=== PATIENT | female | born 1970 | race Hispanic/Latino ===

== ENCOUNTER 2019-07-19 23:53 | Emergency (ER) | payer OTHER ==
--- OUTSIDE RECORDS SUMMARY | 2019-07-20 00:09 | XMS REPORT ---
:1970 Author Organization [facility] Address [address] [place] [address] Dr. Meza [address] [place] [address] Care Team Providers Name Role Phone Unavailable Unavailable Unavailable Problems This patient has no known problems. Allergies, Adverse Reactions, Alerts This patient has no known allergies or adverse reactions. Medications This patient has no known medications.
--- OUTSIDE RECORDS SUMMARY | 2019-07-20 00:10 | XMS REPORT | Summary of Care ---
:1970 Author Organization [facility] Address [address] [place] [address] Care Team Providers Name Role Phone Mason Trivedi Primary Care Provider Pcp, Patient Does Not Have A Unavailable Reason for Visit Reason Comments Orders Pre-Op Orders Encounter Details Date Type Department Care Team Description 06/20/2019 Telephone [facility] Orthopaedic Andrea Rivera Orders (Pre- Op Orders) Surgery- Didier Bolaños MD [address] [facility], [address] [place] [address] [place], [place] [phone] Allergies No Known Allergiesdocumented as of this encounter (statuses as of 06/20/2019) Medications Medication Sig Dispensed Refills Start Date End Date Status amoxicillin-clavulanate 875-125 mg 0 04/11/2019 Active per tablet atorvastatin 10 mg tablet 0 03/31/2019 Active TRULICITY 1.5 mg/0.5 mL PnIj 0 03/31/2019 Active DULoxetine 60 mg capsule 0 03/31/2019 Active HYDROcodone-acetaminophen 7.5-325 mg 0 02/14/2019 Active per tablet ibuprofen 800 mg tablet 0 05/01/2019 Active NOVOLOG FLEXPEN U-100 INSULIN 100 0 04/27/2019 Active unit/mL (3 mL) injection LEVEMIR FLEXTOUCH U-100 INSULN 100 0 03/31/2019 Active unit/mL (3 mL) injection LINZESS 145 mcg capsule 0 03/31/2019 Active losartan 50 mg tablet 0 03/31/2019 Active pregabalin 75 mg capsule 0 03/31/2019 Active promethazine-dextromethorphan 0 04/11/2019 Active 6.25-15 mg/5 mL syrup rOPINIRole 1 mg tablet 0 03/31/2019 Active orphenadrine 100 mg SR tablet 0 03/15/2019 Active documented as of this encounter (statuses as of 06/20/2019) Active Problems Not on filedocumented as of this encounter (statuses as of 06/20/2019) Social History Tobacco Use Types Packs/Day Years Used Date Current Every Day Smoker Smokeless Tobacco: Never Used Sex Assigned at Date Recorded Not on file Job Start Date Occupation Industry Not on file Not on file Not on file Travel History Travel Start Travel End No recent travel history available. documented as of this encounter Last Filed Vital Signs Not on filedocumented in this encounter Plan of Treatment Name Type Priority Associated Diagnoses Order Schedule CBC WITH DIFF LAB Routine Bilateral carpal Expected: 06/20/2019, tunnel syndrome Expires: 06/20/2020 BASIC METABOLIC LAB Routine Bilateral carpal Expected: 06/20/2019, PANEL ([id number])(NA, K, tunnel syndrome Expires: 06/20/2020 CL, CO2, GLUCOSE, BUN, CREATININE, CA) EKG-12 LEAD ROUTINE HEART STATION Routine Bilateral carpal 1 Occurrences tunnel syndrome starting 06/20/2019 until 08/19/2019 XR CHEST 1 VW IMAGING Routine Bilateral carpal Expected: 06/27/2019, tunnel syndrome Expires: 06/20/2020 Health Maintenance Due Date Last Done Comments HgA1C 01/05/1969 PNEUMOCOCCAL 0-64 YEARS COMBINED SERIES (1 of 1 - 01/05/1974 PPSV23) EYE EXAM 01/05/1978 LDL-C 01/05/1978 URINE MICROALBUMIN 01/05/1978 DTaP,Tdap,and Td Vaccines (1 - Tdap) 01/05/1979 FOOT EXAM 01/05/1986 Breast Cancer Screening (MAMMOGRAM) 2008 PAP SMEAR 2008 01/05/2005 CREATININE (SERUM) 04/23/2008 04/23/2007 COLONOSCOPY 01/05/2018 Zoster Recombinant Vaccine (SHINGRIX) (1 of 2) 01/05/2018 INFLUENZA VACCINE (#1) 2019 documented as of this encounter Results Not on filedocumented in this encounter Visit Diagnoses Diagnosis Bilateral carpal tunnel syndrome - Primary Carpal tunnel syndrome documented in this encounter Insurance Payer Benefit Plan / Group Subscriber ID Effective Dates Phone Address Type DARIN WEBSTER II [id number] 2018-Present HMO/PPO/POS documented as of this encounter
--- OUTSIDE RECORDS SUMMARY | 2019-07-20 00:10 | XMS REPORT | Summary of Care ---
:1970 Author Organization [facility] Address [address] [place] [address] Care Team Providers Name Role Phone Mason Trivedi Primary Care Provider Reason for Referral MRI/CAT Scan (Routine) Status Reason Specialty Diagnoses / Referred By Referred To Procedures Contact Contact Closed Diagnostic Diagnoses Closed head injury, initial encounter Memory loss Dmitry Sy Radiology Procedures MR BRAIN WO MARÍA Stiles MD [address] [place] [id number] Reason for Visit MRI/CAT Scan (Routine) Status Reason Specialty Diagnoses / Referred By Referred To Procedures Contact Contact Closed Diagnostic Diagnoses Closed head injury, initial encounter Memory loss Dmitry Sy Radiology Procedures MR BRAIN WO MARÍA Stiles MD [address] [place] [phone] Encounter Details Date Type Department Care Team Description [facility] Keri EUCEDA [facility] [address] [place] [phone] Allergies No Known Allergiesdocumented as of this encounter (statuses as of 05/31/2019) Medications Medication Sig Dispensed Refills Start Date [...] as of this encounter (statuses as of 05/31/2019) Active Problems Not on filedocumented as of this encounter (statuses as of 05/31/2019) Social History Tobacco Use Types Packs/Day Years Used Date Current Every Day Smoker Smokeless Tobacco: Never Used Sex Assigned at Date Recorded Not on file Job Start Date Occupation Industry Not on file Not on file Not on file Travel History Travel Start Travel End No recent travel history available. documented as of this encounter Last Filed Vital Signs Vital Sign Reading Time Taken Comments Blood Pressure - - Pulse - - Temperature - - Respiratory Rate - - Oxygen Saturation - - Inhaled Oxygen Concentration - - Weight 68.9 kg (152 lb) 05/30/2019 10:03 AM STRAIGHT EDGER Height 154.9 cm (5' 1") 05/30/2019 10:03 AM STRAIGHT EDGER Body Mass Index 28.72 05/30/2019 10:03 AM STRAIGHT EDGER documented in this encounter Plan of Treatment Date Type Specialty Care Team Description 06/15/2019 Appointment Electroneurodiagnostic ([employer] Worker), Adc Emg/Ncv Testing Health Maintenance Due Date Last Done Comments HgA1C 01/05/1969 PNEUMOCOCCAL 0-64 YEARS COMBINED SERIES (1 of 1 - 01/05/1974 PPSV23) CREATININE (SERUM) 01/05/1978 EYE EXAM 01/05/1978 LDL-C 01/05/1978 URINE MICROALBUMIN 01/05/1978 DTaP,Tdap,and Td Vaccines (1 - Tdap) 01/05/1979 FOOT EXAM 01/05/1986 PAP SMEAR 01/05/1989 Breast Cancer Screening (MAMMOGRAM) 2008 COLONOSCOPY 01/05/2018 Zoster Recombinant Vaccine (SHINGRIX) (1 of 2) 01/05/2018 INFLUENZA VACCINE (#1) 2019 documented as of this encounter Procedures Procedure Name Priority Date/Time Associated Comments Diagnosis MR BRAIN WO CONTRAST Routine 05/30/2019 10:37 AM Closed head injury, Results for this STRAIGHT EDGER initial encounter procedure are in Memory loss the results section. CONSENT/REFUSAL FOR Routine 05/30/2019 9:23 AM DIAGNOSIS AND STRAIGHT EDGER TREATMENT ASSIGNMENT OF Routine 05/30/2019 9:23 AM BENEFITS STRAIGHT EDGER documented in this encounter Results MR BRAIN WO CONTRAST (05/30/2019 10:37 AM STRAIGHT EDGER) Specimen Impressions Performed At PACS/VR/DOSE Normal MRI of the brain.. Preliminary Report Dictated by Resident: Yobany Charles I, Sami Mai MD., have reviewed this study and agree with the above report. Narrative Performed At MR BRAIN WO CONTRAST PACS/VR/DOSE COMPARISON: None HISTORY: 49 year old female?with a PMH of IDDM, HTN, diabetic neuropathy, restless leg syndrome and anxiety mean evaluate for memory loss and unexplained shaking. TECHNIQUE: Multiplanar multisequence MR imaging of the brain at 1.5 Toyin. FINDINGS: The ventricles and cerebral sulci are normal in caliber and configuration. No midline shift, hydrocephalus or pathological extra-axial fluid collection is present. The basal cisterns are unremarkable. No restricted diffusion is present to suggest acute infarct. No parenchymal signal abnormality is present. No abnormal gradient blooming. The T2 flow voids for the major intracranial vessels are unremarkable. No abnormal fluid signal is present in the mastoid air cells or paranasal air sinuses. Procedure Note [facility], Radiant Results Inft User - 05/30/2019 12:39 PM STRAIGHT EDGER MR BRAIN WO CONTRAST COMPARISON: None HISTORY: 49 year old female?with a PMH of IDDM, HTN, diabetic neuropathy, restless leg syndrome and anxiety mean evaluate for memory loss and unexplained shaking. TECHNIQUE: Multiplanar multisequence MR imaging of the brain at 1.5 Toyin. FINDINGS: The ventricles and cerebral sulci are normal in caliber and configuration. No midline shift, hydrocephalus or pathological extra-axial fluid collection is present. The basal cisterns are unremarkable. No restricted diffusion is present to suggest acute infarct. No parenchymal signal abnormality is present. No abnormal gradient blooming. The T2 flow voids for the major intracranial vessels are unremarkable. No abnormal fluid signal is present in the mastoid air cells or paranasal air sinuses. IMPRESSION Normal MRI of the brain.. Preliminary Report Dictated by Resident: Yobany Charles I, Sami Mai MD., have reviewed this study and agree with the above report. Performing Organization Address City/State/Zipcode Phone Number PACS/VR/DOSE documented in this encounter Visit Diagnoses Diagnosis Closed head injury, initial encounter Memory loss documented in this encounter documented as of this encounter
--- OUTSIDE RECORDS SUMMARY | 2019-07-20 00:11 | XMS REPORT | Summary of Care ---
:1970 Author Organization [facility] - [address] [address] Care Team Providers Name Role Phone Mason Trivdei Primary Care Provider Pcp, Patient Does Not Have A Unavailable Reason for Visit Reason Comments New Patient Bilateral wrist pain (Routine) Status Reason Specialty Diagnoses / Referred By Referred To Procedures Contact Contact Closed Orthopedic Surgery Diagnoses Carpal tunnel syndrome, bilateral Dmitry Sy Procedures CONSULT/REFERRAL ORTHOPAEDIC SURGERY MD Go [address] [place] [address]. [place] [address] Encounter Details Date Type Department Care Team Description 06/19/2019 Office Visit [facility] Orthopaedic Waqas Rojas S, Bilateral carpal Surgery- [place] PAC tunnel syndrome [address], [address] (Primary Dx) [place] [address] [place] [address] [place], [place] [phone] Allergies No Known Allergiesdocumented as of this encounter (statuses as of 06/22/2019) Medications Medication Sig Dispensed Refills Start Date [...] as of this encounter (statuses as of 06/22/2019) Active Problems Not on filedocumented as of this encounter (statuses as of 06/22/2019) Social History Tobacco Use Types Packs/Day Years [...] Sign Reading Time Taken Comments Blood Pressure 146/94 06/19/2019 1:35 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 Has tried OTC ointments and bracing that hasnot helped. EMG results available in the chart. Linda Romero 06/19/2019 1:39 PM Cesia Farris is a 49 year old female. [facility] patient visit for bilateral wrist pain is been going on for 7 months she's tried [id number] ointments and bracing that have not helped she was seen by Dr. Sy who did a nerve conduction study results available for review today she feels weird in the median distribution but not numbat rest. She has some weakness in her hands requiring her to use 2 hands to poor her coffee. Allergies Cesia has No Known Allergies. Medications Outpatient Medications Prior to Visit Medication Sig Dispense Refill amoxicillin-clavulanate 875-125 mg per tablet atorvastatin 10 mg tablet DULoxetine 60 mg capsule HYDROcodone-acetaminophen 7.5-325 mg per tablet ibuprofen 800 mg tablet LEVEMIR FLEXTOUCH U-100 INSULN 100 unit/mL (3 mL) injection LINZESS 145 mcg capsule losartan 50 mg tablet NOVOLOG FLEXPEN U-100 INSULIN 100 unit/mL (3 mL) injection orphenadrine 100 mg SR tablet pregabalin 75 mg capsule promethazine-dextromethorphan 6.25-15 mg/5 mL syrup rOPINIRole 1 mg tablet TRULICITY 1.5 mg/0.5 mL PnIj No facility-administered medications prior to visit. Histories History reviewed. No pertinent past medical history. History reviewed. No pertinent surgical history. Social History Socioeconomic History Marital status: Spouse name: Not on file Number of children: Not on file Years of education: Not on file Highest education level: Not on file Occupational History Not on file Social Needs Financial resource strain: Not on file Food insecurity: Worry: Not on file Inability: Not on file Transportation needs: Medical: Not on file Non-medical: Not on file Tobacco Use Smoking status: Current Every Day Smoker Smokeless tobacco: Never Used Substance and Sexual Activity Alcohol use: Not on file Drug use: Not on file Sexual activity: Not on file Lifestyle Physical activity: Days per week: Not on file Minutes per session: Not on file Stress: Not on file Relationships Social connections: Talks on phone: Not on file Gets together: Not on file Attends samaritan service: Not on file Active member of club or organization: Not on file Attends meetings of clubs or organizations: Not on file Relationship status: Not on file Intimate partner violence: Fear of current or ex partner: Not on file Emotionally abused: Not on file Physically abused: Not on file Forced sexual activity: Not on file Other Topics Concern Not on file Social History Narrative Not on file History reviewed. No pertinent family history. Review of Systems Constitutional: Positive for activity change. HENT: Negative. Eyes: Negative. Respiratory: Negative. Cardiovascular: Negative. Gastrointestinal: Negative. Genitourinary: Negative. Musculoskeletal: Positive for joint swelling. Skin: Negative. Neurological: Negative. Psychiatric/Behavioral: Negative. Endocrine: Endocrine negative Vital Signs BP (!) 146/94 | Pulse 116 | Ht 61" (154.9 cm) | Wt 68.9 kg (152 lb) | BMI 28.72 kg/m Physical Exam Musculoskeletal: Physical Exam Constitutional: oriented to person, place, and time. appears well-developed and well-nourished. HENT: Head: Normocephalic and atraumatic. Right Ear: External ear normal. Left Ear: External ear normal. Eyes: Conjunctivae are normal. Neck: Normal range of motion. No strabismus Neck supple. Cardiovascular: Normal rate and regular rhythm. Pulmonary/Chest: Normal respiratory rate equal chest rise and fall in no apparent distress Abdominal: Abdomen nondistended nontender Neurological: alert and oriented to person, place, and time. No asymmetry Skin: Skin is warm and dry. Psychiatric: normal mood and affect. behavior is normal. Judgment and thought content normal. Nursing note and vitals reviewed. She has a positive Tinel's test on both sides and the pain with Phalen's test Assessment/Plan 1. Bilateral carpal tunnel syndrome She has tried conservative management and continues to have carpal tunnel syndrome in both hands theright side is worse on the left side so we will proceed with that first we will schedule her for a right wrist carpal tunnel release. At [facility] for 06/21/2019. I have discussed the patient's physical exam and reviewed their x-rays/imaging/ results with them in detail. Discussed surgery at great lengths regarding risks and benefits. Explained as with any procedure there may be pain, damage to nerve and vascular structures, fat embolism, need for additional surgery, failure of procedure to relieve pain. We spoke of recovery time, expected outcome, possible restrictions and anticipation return to work date as well as possible rehabilitation if needed or required after the surgery. All questions have been answered. Condition and plans were discussed with patient, who expressed understanding and is agreeable to theplan. documented in this encounter Plan of Treatment Health Maintenance Due Date Last Done Comments [...] Carpal tunnel syndrome documented in this encounter documented as of this encounter
--- OUTSIDE RECORDS SUMMARY | 2019-07-20 00:11 | XMS REPORT | Summary of Care ---
:1970 Author Organization [facility] - [address] [address] Care Team Providers Name Role Phone Mason Trivedi Primary Care Provider Pcp, Patient Does Not Have A Unavailable Reason for Visit Reason Comments New Patient Bilateral wrist pain (Routine) Status Reason Specialty Diagnoses / Referred By Referred To Procedures Contact Contact Closed Orthopedic Surgery Diagnoses Carpal tunnel syndrome, bilateral Dmitry Sy Procedures CONSULT/REFERRAL ORTHOPAEDIC SURGERY MD Go [address] [place] [address]. [place] [address] Encounter Details Date Type Department Care Team Description 06/19/2019 Office Visit [facility] Orthopaedic Waqas Rojas S, Bilateral carpal Surgery- [place] PAC tunnel syndrome [address], [address] (Primary [address]x) [address] [place] [address] [place] [address] [place], [place] [phone] Allergies No Known Allergiesdocumented as of [...] Comments Blood Pressure 146/94 06/19/2019 1:35 PM FIELD TECHNICAL SUPPORT CONSULTANT Pulse 116 06/19/2019 1:35 PM FIELD TECHNICAL SUPPORT CONSULTANT Temperature - - Respiratory Rate - - Oxygen Saturation - - Inhaled Oxygen Concentration - - Weight 68.9 kg (152 lb) 06/19/2019 1:35 PM FIELD TECHNICAL SUPPORT CONSULTANT Height 154.9 cm (5' 1") 06/19/2019 1:35 PM FIELD TECHNICAL SUPPORT CONSULTANT Body Mass Index 28.72 06/19/2019 1:35 PM FIELD TECHNICAL SUPPORT CONSULTANT documented in this encounter Progress Notes Waqas [...] Farris is a 49 year old female. [facility] patient visit for bilateral wrist pain is been going on for 7 months she's tried [id number] ointments and bracing that have not helped [...] file Gets together: Not on file Attends buddhism service: Not on file Active member of [...] a right wrist carpal tunnel release. At [facility] for 06/21/2019. I have discussed the patient's [...]
--- OUTSIDE RECORDS SUMMARY | 2019-07-20 00:12 | XMS REPORT | Summary of Care ---
:1970 Author Organization [facility] Address [address] [place] [address] Care Team Providers Name Role Phone Mason Trivedi Primary Care Provider Pcp, Patient Does Not Have A Unavailable Reason for Visit Reason Comments Notification The patient called stating she thought she was having surgery tomorrow on her left hand first but her paperwork says the right. She is right handed and would prefer to do the left hand first. Encounter Details Date Type Department Care Team Description 06/27/2019 Telephone [facility] Orthopaedic Andrea Rivera Notification ( The Surgery- Didier Bolaños MD patient called stating [address], [address] [place] [address] [place], [place] on her left hand first [phone] but her paperwork says [phone] the right. She is right [phone] handed and would prefer (Fax) to do the left hand first. ) Allergies No Known Allergiesdocumented as of this encounter (statuses as of 06/27/2019) Medications Medication Sig Dispensed Refills Start Date [...] as of this encounter (statuses as of 06/27/2019) Active Problems Not on filedocumented as of this encounter (statuses as of 06/27/2019) Social History Tobacco Use Types Packs/Day Years [...] filedocumented in this encounter Plan of Treatment Health Maintenance Due Date Last Done Comments HgA1C 01/05/1969 PNEUMOCOCCAL 0-64 YEARS COMBINED SERIES (1 01/05/1974 of 1 - PPSV23) EYE EXAM 01/05/1978 LDL-C 01/05/1978 URINE MICROALBUMIN 01/05/1978 DTaP,Tdap,and Td Vaccines (1 - Tdap) 01/05/1979 FOOT EXAM 01/05/1986 Breast Cancer Screening (MAMMOGRAM) 2008 PAP SMEAR 2008 01/05/2005 COLONOSCOPY 01/05/2018 Zoster Recombinant Vaccine (SHINGRIX) (1 01/05/2018 of 2) INFLUENZA VACCINE (#1) 2019 CREATININE (SERUM) 06/22/2020 06/22/2019, 04/23/2007 documented as of this encounter Results Not on filedocumented in this encounter Insurance Payer Benefit Plan / Group Subscriber ID Effective Dates Phone Address Type DARIN WEBSTER II [id number] 2018-Present HMO/PPO/POS documented as of this encounter
--- OUTSIDE RECORDS SUMMARY | 2019-07-20 00:12 | XMS REPORT | Summary of Care ---
:1970 Author Organization [facility] Address [address] [place] [address] Care Team Providers Name Role Phone Mason Trivedi Primary Care Provider Pcp, Patient Does Not Have A Unavailable Reason for Visit Reason Comments LAB WORK Encounter Details Date Type Department Care Team Description 06/22/2019 Block Tester Visit [facility] Andrea Rivera MD [address] [facility] [place] [address] [place] [address] Bilateral carpal Professional Office Pob, Adc Lab Main tunnel syndrome Building Phlebotomy Lab Professional Office Building [address] [place] [address] , [address] [place] [address] Allergies No Known Allergiesdocumented as of this [...] filedocumented in this encounter Plan of Treatment Date Type Specialty Care Team Description 06/22/2019 Hospital Encounter [facility] Andrea Rivera MD [address] [place] [phone] Arrived Station, [facility] Heart Name Type Priority Associated Diagnoses Date/Time CBC WITH DIFF LAB Routine Bilateral carpal tunnel 06/22/2019 2:38 PM syndrome SEPTIC TANK SERVICE TECHNICIAN BASIC METABOLIC PANEL LAB Routine Bilateral carpal tunnel 06/22/2019 2:38 PM ([id number])(NA, K, CL, CO2, syndrome SEPTIC TANK SERVICE TECHNICIAN GLUCOSE, BUN, CREATININE, CA) CBC WITH DIFFERENTIAL LAB Routine Bilateral carpal tunnel 06/22/2019 2:38 PM syndrome SEPTIC TANK SERVICE TECHNICIAN Health Maintenance Due Date Last Done Comments [...] Visit Diagnoses Diagnosis Bilateral carpal tunnel syndrome Carpal tunnel syndrome documented in this encounter documented as of this encounter
--- OUTSIDE RECORDS SUMMARY | 2019-07-20 00:12 | XMS REPORT | Summary of Care ---
:1970 Author Organization [facility] Address [address] [place] [address] Care Team Providers Name Role Phone Mason Trivedi Primary Care Provider Pcp, Patient Does Not Have A Unavailable Reason for Visit Auth/Cert Status Reason Specialty Diagnoses / Procedures Referred By Contact Referred To Contact Radiology Diagnoses PRE OP Adc X-Ray Procedures CBC [address] [place] [address] Encounter Details Date Type Department Care Team Description 06/22/2019 Hospital Encounter [facility] Andrea Rivera, Keri Mancilla Radiology [address] [facility] [place] [address] [address] [phone] [place] [address] Allergies No Known Allergiesdocumented as of this encounter (statuses as of 06/23/2019) Medications Medication Sig Dispensed Refills Start Date [...] as of this encounter (statuses as of 06/23/2019) Active Problems Not on filedocumented as of this encounter (statuses as of 06/23/2019) Social History Tobacco Use Types Packs/Day Years [...] encounter Procedures Procedure Name Priority Date/Time Associated Diagnosis Comments XR CHEST 2 VW Routine 06/22/2019 2:21 PM Bilateral carpal Results for this GEODESIST tunnel syndrome procedure are in the results section. documented in this encounter Results XR CHEST 2 VW (06/22/2019 2:21 PM GEODESIST) Specimen Narrative Performed At HISTORY: Preop. PACS/VR/DOSE TECHNIQUE: PA and lateral views of the chest are obtained. FINDINGS: No acute pneumonia detected. No pneumothorax or pleural effusion or pulmonary congestion. Cardiothoracic ratio of approximately 12/28.8 cm is consistent with normal cardiac size. Very small calcified granuloma in the right upper lobe and left lingula segment suspected. No compression deformity in the thoracic vertebral bodies or any aggressive bone lesions visualized. Clips are seen in the right upper abdomen, likely utilized for cholecystectomy. CONCLUSIONS: No signs of acute cardiopulmonary disease. Procedure Note [facility], Radiant Results Inft User - 06/22/2019 2:25 PM GEODESIST HISTORY: Preop. TECHNIQUE: PA and lateral views of the chest are obtained. FINDINGS: No acute pneumonia detected. No pneumothorax or pleural effusion or pulmonary congestion. Cardiothoracic ratio of approximately 12/28.8 cm is consistent with normal cardiac size. Very small calcified granuloma in the right upper lobe and left lingula segment suspected. No compression deformity in the thoracic vertebral bodies or any aggressive bone lesions visualized. Clips are seen in the right upper abdomen, likely utilized for cholecystectomy. CONCLUSIONS: No signs of acute cardiopulmonary disease. Performing Organization Address City/State/Zipcode Phone Number PACS/VR/DOSE documented in this encounter Visit Diagnoses Diagnosis Bilateral carpal tunnel syndrome Carpal tunnel syndrome documented in this encounter documented as of this encounter
--- OUTSIDE RECORDS SUMMARY | 2019-07-20 00:12 | XMS REPORT | Summary of Care ---
:1970 Author Organization [facility] - [facility] Address [address] [place] [address] Care Team Providers Name Role Phone Mason Trivedi Primary Care Provider Pcp, Patient Does Not Have A Unavailable Reason for Visit Reason Comments Follow-up S/P RT CTR 06/28/2019 - 6 days from the DOS Encounter Details Date Type Department Care Team Description 07/04/2019 Office Visit [facility] Orthopaedic RojasWaqas S, Pain of right hand Surgery- [place] [facility] (Primary Dx) [address], [address] [place] [address] [place] [address] [place], [place] [phone] Allergies No Known Allergiesdocumented as of this encounter (statuses as of 07/04/2019) Medications Medication Sig Dispensed Refills Start Date End Date Status amoxicillin-clavulanat 0 04/11/2019 Active e 875-125 mg per tablet atorvastatin 10 mg 0 03/31/2019 Active tablet TRULICITY 1.5 mg/0.5 0 03/31/2019 Active mL PnIj DULoxetine 60 mg 0 03/31/2019 Active capsule HYDROcodone-acetaminop 0 02/14/2019 Active hen 7.5-325 mg per tablet ibuprofen 800 mg 0 05/01/2019 Active tablet NOVOLOG FLEXPEN U-100 0 04/27/2019 Active INSULIN 100 unit/mL (3 mL) injection LEVEMIR FLEXTOUCH 0 03/31/2019 Active U-100 INSULN 100 unit/mL (3 mL) injection LINZESS 145 mcg 0 03/31/2019 Active capsule losartan 50 mg tablet 0 03/31/2019 Active pregabalin 75 mg 0 03/31/2019 Active capsule promethazine-dextromet 0 04/11/2019 Active horphan 6.25-15 mg/5 mL syrup rOPINIRole 1 mg tablet 0 03/31/2019 Active orphenadrine 100 mg SR 0 03/15/2019 Active tablet diclofenac 75 mg EC Take 1 tablet by 60 tablet 0 07/04/2019 08/03/2019 Active tabletIndications: mouth 2 (two) Pain of right hand times daily with meals for 30 days. 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 Arrived wearing surgical splint. No changes in medications or allergies since the last office visit. Linda Romero 07/04/2019 2:29 PM Cesia Farris is a 49 year old female. Here for follow-up status post carpal tunnel release 06/28/2019 Tylenol 3 makes her feel strange and keeps her up she is just been taking 800 mg Motrin that works for her she came in today because she was having some pain on her index finger Allergies Cesia has No Known Allergies. Medications [...] No facility-administered medications prior to visit. Histories No past medical history on file. Past Surgical History: Procedure Laterality Date OPEN CARPAL TUNNEL RELEASE Right 06/28/2019 Dr. Andrea Rivera Social History Socioeconomic History Marital status: Spouse [...] file Gets together: Not on file Attends advent service: Not on file Active member of [...] file Social History Narrative Not on file No family history on file. Review of Systems Constitutional: Positive for activity change. HENT: Negative. Eyes: Negative. Respiratory: Negative. Cardiovascular: Negative. Gastrointestinal: Negative. Genitourinary: Negative. Musculoskeletal: Positive for joint swelling. Skin: Negative. Neurological: Negative. Psychiatric/Behavioral: Negative. Endocrine: Endocrine negative Vital Signs Ht 61" (154.9 cm) | Wt 68.9 kg (152 lb) | BMI 28.72 kg/m Physical Exam Physical Exam Constitutional: oriented to person, place, [...] content normal. Nursing note and vitals reviewed. Edil wrap was removed there were no pinch points found but she didn't feel relieved it was rewrapped quite loosely Assessment/Plan status post right carpal tunnel release Keep regularly scheduled follow-up for suture removal documented in this encounter Plan of Treatment Date Type Specialty Care Team Description 07/12/2019 Office Visit Orthopedic Surgery Waqas Rojas, PAC [address] [place] [phone] Health Maintenance Due Date Last Done Comments [...] filedocumented in this encounter Visit Diagnoses Diagnosis Pain of right hand - Primary Pain in limb documented in this encounter documented as of this encounter
--- OUTSIDE RECORDS SUMMARY | 2019-07-20 00:13 | XMS REPORT | Summary of Care ---
:1970 Author Organization [facility] - [facility] Address [address] [place] [id number] Care Team Providers Name Role Phone Mason Trivedi Primary Care Provider Pcp, Patient Does Not Have A Unavailable Reason for Visit Reason Comments Follow-up S/P RT CTR 06/28/2019 - 2 weeks out today. Encounter Details Date Type Department Care Team Description 07/12/2019 Office Visit [facility] Orthopaedic Waqas Rojas S, Bilateral carpal Surgery- [place] PAC tunnel syndrome [address], [address] (Primary Dx) [place] [address] [place], [place] [phone] Allergies No Known Allergiesdocumented as of this encounter (statuses as of 07/12/2019) Medications Medication Sig Dispensed Refills Start Date [...] as of this encounter (statuses as of 07/12/2019) Active Problems Not on filedocumented as of this encounter (statuses as of 07/12/2019) Social History Tobacco Use Types Packs/Day Years [...] Sign Reading Time Taken Comments Blood Pressure 137/82 07/12/2019 1:01 PM DIRECTOR VISUAL Pulse 118 07/12/2019 1:01 PM DIRECTOR VISUAL Temperature - - Respiratory Rate - - Oxygen Saturation - - Inhaled Oxygen Concentration - - Weight 68.9 kg (152 lb) 07/12/2019 1:01 PM DIRECTOR VISUAL Height 154.9 cm (5' 1") 07/12/2019 1:01 PM DIRECTOR VISUAL Body Mass Index 28.72 07/12/2019 1:01 PM DIRECTOR VISUAL documented in this encounter Progress Notes Waqas Rojas S, PAC - 07/12/2019 1:15 PM CST Cc: Chief Complaint Patient presents with Follow-up S/P RT CTR 06/28/2019 - 2 weeks out today. Cesia Farris is a 49 year old female. F/u s/p right CTR Allergies Cesia has No Known Allergies. Medications Outpatient Medications Prior to Visit Medication Sig Dispense Refill diclofenac 75 mg EC tablet Take 1 tablet by mouth 2 (two) times daily with meals for 30 days. 60tablet 0 amoxicillin-clavulanate 875-125 mg per tablet atorvastatin 10 [...] file Gets together: Not on file Attends roman catholic service: Not on file Active member of [...] Negative. Endocrine: Endocrine negative Vital Signs BP 137/82 | Pulse 118 | Ht 61" (154.9 cm) | Wt 68.9 kg (152 lb) | BMI 28.72 kg/m Physical Exam Musculoskeletal: The wound is well approximated. It is healing nicely. There is no drainage at this time. It is not hot to the touch no erythema no edema no purulent drainage. Assessment/Plan Diagnosis: 1. Bilateral carpal tunnel syndrome Plan: gradually increase activity, use caution with ligting and squeezing for a month , F/U PRN documented in this encounter Plan of Treatment Date Type Specialty Care Team Description 08/30/2019 Office Visit Neurology Tomasa Meyer, PHD [address] [place] [phone] Health Maintenance Due Date Last Done Comments [...]
--- OUTSIDE RECORDS SUMMARY | 2019-07-20 00:13 | XMS REPORT | Summary of Care ---
:1970 Author Organization [facility] - [facility] Address [address] [place] [address] Care Team Providers Name Role Phone Mason Trivedi Primary Care Provider Pcp, Patient Does Not Have A Unavailable Reason for Visit Reason Comments Follow-up S/P RT CTR 06/28/2019 - 2 weeks out today. Encounter Details Date Type Department Care Team Description 07/12/[address] 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 Pulse 118 07/12/2019 1:01 PM ORE CRUSHING DUST COLLECTOR Temperature - - Respiratory Rate - - Oxygen Saturation - - Inhaled Oxygen Concentration - - Weight 68.9 kg (152 lb) 07/12/2019 1:01 PM ORE CRUSHING DUST COLLECTOR Height 154.9 cm (5' 1") 07/12/2019 1:01 PM ORE CRUSHING DUST COLLECTOR Body Mass Index 28.72 07/12/2019 1:01 PM ORE CRUSHING DUST COLLECTOR documented in this encounter Progress Notes Waqas [...] file Gets together: Not on file Attends faith service: Not on file Active member of [...] 08/30/2019 Office Visit Neurology Tomasa Meyer, PHD [address] [place] [phone] Health Maintenance Due Date Last Done [...]
--- OUTSIDE RECORDS SUMMARY | 2019-07-20 00:13 | XMS REPORT | Summary of Care ---
:1970 Author Organization [facility] Address [address] [place] [address] Care Team Providers Name Role Phone Mason Trivedi Primary Care Provider Pcp, Patient Does Not Have A Unavailable Reason for Visit Reason Comments Follow-up S/P RT CTR 06/28/2019 - 6 days from the DOS Encounter Details Date Type Department Care Team Description 07/04/2019 Office Visit [facility] Orthopaedic RojasWaqas S, Pain of right hand Surgery- [place] [facility] (Primary Dx) [address], [address] [address] [place] [address] [place] [phone] Allergies No Known Allergiesdocumented as of [...] 68.9 kg (152 lb) 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
[2019-07-20] MEDS ORDERED: NA CHLORIDE 0.9% 1,000 ML ONE (00:16)
[2019-07-20 00:37] LABS: Absolute Lymphocytes (CBC) 3.3 K/uL (0.7-4.9); Basophils % 0.5 % (0-1.3); Hematocrit 39.6 % (36.0-45.0); MPV 9.5 fL (7.6-11.3); RBC Red Blood Cell Count 4.42 M/uL (3.86-4.86)
[2019-07-20 01:16] LABS: ALT/SGPT 22 U/L (12-78); AST/SGOT 12 U/L (15-37); Albumin 3.4 g/dL (3.4-5.0); Alkaline Phosphatase 109 U/L (45-117); BUN Blood Urea Nitrogen 14 mg/dL (7-18); Bicarbonate 28 mmol/L (21-32); Bilirubin Direct < 0.1 mg/dL (0-0.2); Bilirubin Total 0.2 mg/dL (0.2-1.0); Lipase 334 U/L (73-393); Potassium 3.5 mmol/L (3.5-5.1); Protein, Total 6.8 g/dL (6.4-8.2); Sodium Level 140 mmol/L (136-145)
[2019-07-20 01:17] LABS: Glucose Level 408 mg/dL (74-106)
--- NOTE | 2019-07-20 01:30 | ER ---
Nurse's Notes [facility] Name: Cesia Farris Age: 49 yrs Sex: Female : 1970 Arrival Date: 07/20/2019 Time: 00:00 Bed 6 Private MD: Diagnosis: Hyperglycemia, unspecified Presentation: 07/19 00:01 Chief complaint: EMS states: SHE HAS HYPERGLYCEMIA, BGL IS 505. SIGNS OF DEHYDRATION. rv AND COMPLAINS OF SHAKINESS AND CLUMSINESS SINCE YESTERDAY. Coronavirus screen: The patient has NOT traveled to a country currently being monitored by the [facility] within the last 14 days. Proceed with normal triage procedures. The patient has NOT had contact with any known and/or suspected case of coronavirus. Proceed with normal triage procedures. Ebola Screen: No symptoms or risks identified at this time. Initial Sepsis Screen: Does the patient meet any 2 criteria? No. Patient's initial sepsis screen is negative. Does the patient have a suspected source of infection? No. Patient's initial sepsis screen is negative. Risk Assessment: Do you want to hurt yourself or someone else? Patient reports no desire to harm self or others. 00:01 Method Of Arrival: EMS: [facility] rv 00:01 Acuity: ROSSI 3 rv 00:04 Onset of symptoms was July 19, 2019 at 08:00. 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 - Social history:: Smoking status: Patient reports the use of cigarette tobacco products, denies chronic smoking, but will smoke occasionally. Screenin:04 Abuse screen: Denies threats or abuse. Denies injuries from another. Nutritional rv screening: No deficits noted. Tuberculosis screening: No symptoms or risk factors identified. Fall Risk None identified. Assessment: 00:03 General: Appears in no apparent distress. comfortable, Behavior is calm, cooperative. rv Pain: Denies pain. Neuro: Level of Consciousness is awake, alert, obeys commands, Oriented to person, place, time, situation. Cardiovascular: Patient's skin is warm and dry. Respiratory: Airway is patent. Musculoskeletal: Reports SHAKINESS AND CLUMSINESS. 01:28 Reassessment: Patient appears in no apparent distress at this time. Patient and/or mg2 family updated on plan of care and expected duration. Pain level reassessed. Patient is alert, oriented x 3, equal unlabored respirations, skin warm/dry/pink. 01:39 Reassessment: Patient appears in no apparent distress at this time. Patient and/or rv family updated on plan of care and expected duration. Pain level reassessed. Patient is alert, oriented x 3, equal unlabored respirations, skin warm/dry/pink. Patient states feeling better. Patient states symptoms have improved. Vital Signs: 00:01 BP 151 / 98; Pulse 105; Resp 15; Temp 98.8; Pulse Ox 100% ; Weight 66.68 kg; Height 5 rv ft. 1 in. (154.94 cm); Pain 0/10; 01:28 BP 155 / 86; Pulse 102; Resp 18; Pulse Ox 99% on R/A; mg2 01:39 BP 139 / 85; Pulse 101; Resp 13; Temp 98.4; Pulse Ox 100% on R/A; rv 00:01 Body Mass Index 27.78 (66.68 kg, 154.94 cm) rv ED Course: 00:00 Patient arrived in ED. rv 00:01 Chema Roque MD is Attending Physician. tw4 00:03 Triage completed. rv 00:03 Arm band placed on Patient placed in the treatment room, on a stretcher, Patient rv notified of wait time. 00:05 Patient has correct armband on for positive identification. residential monitor on. Pulse rv ox on. NIBP on. 00:20 Destin Landeros RN is Primary Nurse. rv 00:20 Inserted saline lock: 20 gauge in right antecubital area, using aseptic technique. rv Blood collected. BY ANDREA RODRIGUEZ. 01:28 No provider procedures requiring assistance completed. mg2 01:40 IV discontinued, intact, bleeding controlled, No redness/swelling at site. Pressure rv dressing applied. Administered Medications: 00:05 Drug: NS 0.9% 1000 ml Route: IV; Rate: 1 bolus; Site: right antecubital; mg2 01:29 Follow up: Response: No adverse reaction; IV Status: Completed infusion; IV Intake: mg2 1000ml Intake: 01:29 IV: 1000ml; Total: 1000ml. mg2 Outcome: 01:28 Discharge ordered by . [email or web address] 01:40 Discharged to home ambulatory, with family. rv 01:40 Condition: good 01:40 Discharge instructions given to patient, Instructed on discharge instructions, follow up and referral plans. Demonstrated understanding of instructions, follow-up care. 01:40 Patient left the ED. rv Signatures: Chema Roque MD MD tw4 Andrea Ariza, RN RN mg2 Destin Landeros RN RN rv
--- NOTE | 2019-07-20 01:30 | EDPHYS ---
Physician Documentation [facility] Name: Cesia Farris Age: 49 yrs Sex: Female : 1970 Arrival Date: 07/20/2019 Time: 00:00 Bed 6 Private MD: ED Physician Chema Roque HPI: 07/19 06:09 This 49 yrs old Female presents to ER via EMS with complaints of HYPERGLYCEMIA.tw4 06:09 The patient or guardian reports hyperglycemia. Onset: The symptoms/episode tw4 began/occurred yesterday. Associated signs and symptoms: Pertinent positives: skin flushing. Current symptoms: In the emergency department the patient's symptoms are unchanged from the initial presentation. The patient has not experienced similar symptoms in the past. 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 - Social history:: Smoking status: Patient reports the use of cigarette tobacco products, denies chronic smoking, but will smoke occasionally. ROS: 06:09 Constitutional: Negative for fever, chills, and weight loss, Eyes: Negative for injury, tw4 pain, redness, and discharge, Cardiovascular: Negative for chest pain, palpitations, and edema, Respiratory: Negative for shortness of breath, cough, wheezing, and pleuritic chest pain, Abdomen/GI: Negative for abdominal pain, nausea, vomiting, diarrhea, and constipation, Back: Negative for injury and pain, MS/Extremity: Negative for injury and deformity, Skin: Negative for injury, rash, and discoloration, Neuro: Negative for headache, weakness, numbness, tingling, and seizure. Exam: 06:09 Constitutional: This is a well developed, well nourished patient who is awake, alert, tw4 and in no acute distress. Head/Face: Normocephalic, atraumatic. Eyes: Pupils equal round and reactive to light, extra-ocular motions intact. Lids and lashes normal. Conjunctiva and sclera are non-icteric and not injected. Cornea within normal limits. Periorbital areas with no swelling, redness, or edema. Chest/axilla: Normal chest wall appearance and motion. Nontender with no deformity. No lesions are appreciated. Cardiovascular: Regular rate and rhythm with a normal S1 and S2. No gallops, murmurs, or rubs. Normal PMI, no JVD. No pulse deficits. Respiratory: Lungs have equal breath sounds bilaterally, clear to auscultation and percussion. No rales, rhonchi or wheezes noted. No increased work of breathing, no retractions or nasal flaring. Abdomen/GI: Soft, non-tender, with normal bowel sounds. No distension or tympany. No guarding or rebound. No evidence of tenderness throughout. MS/ Extremity: Pulses equal, no cyanosis. Neurovascular intact. Full, normal range of motion. Neuro: Awake and alert, GCS 15, oriented to person, place, time, and situation. Cranial nerves II-XII grossly intact. Motor strength 5/5 in all extremities. Sensory grossly intact. Cerebellar exam normal. Normal gait. Vital Signs: 00:01 BP 151 / 98; Pulse 105; Resp 15; Temp 98.8; Pulse Ox 100% ; Weight 66.68 kg; Height 5 rv ft. 1 in. (154.94 cm); Pain 0/10; 01:28 BP 155 / 86; Pulse 102; Resp 18; Pulse Ox 99% on R/A; mg2 01:39 BP 139 / 85; Pulse 101; Resp 13; Temp 98.4; Pulse Ox 100% on R/A; rv 00:01 Body Mass Index 27.78 (66.68 kg, 154.94 cm) rv MDM: 00:01 Patient medically screened. tw4 06:09 Differential diagnosis: DKA, hyperglycemia. Data reviewed: vital signs, nurses notes. tw4 Data reviewed: lab test result(s), CBC, electrolytes. Data interpreted: Pulse oximetry: Interpretation: normal. Counseling: I had a detailed discussion with the patient and/or guardian regarding: the historical points, exam findings, and any diagnostic results supporting the discharge/admit diagnosis. 07/19 00:01 Order name: Basic Metabolic Panel; Complete Time: :24 07/19 01:26 Interpretation: Normal except: GLUC 408; GFR 59; CA 8.3. 07/19 00:01 Order name: CBC with Diff; Complete Time: :24 07/19 01:26 Interpretation: Within normal limits. 07/19 00:01 Order name: Creatinine for Radiology; Complete Time: :07/19 01:26 Interpretation: Within normal limits: CRE 0.96. 07/19 00:01 Order name: Hepatic Function; Complete Time: :24 07/19 01:26 Interpretation: Normal except: A/G 1.0; AST 12. 07/19 00:01 Order name: Lipase; Complete Time: :24 07/19 01:27 Interpretation: Within normal limits: LIP 334. 07/19 00:01 Order name: Ketone, Serum; Complete Time: :24 07/19 01:27 Interpretation: ACET NEG. 07/19 00:01 Order name: IV Saline Lock; Complete Time: 00:20 07/19 00:01 Order name: Labs collected and sent; Complete Time: 00:20 07/19 01:28 Order name: Glucose, Ancillary Testing EDTX Administered Medications: 00:05 Drug: NS 0.9% 1000 ml Route: IV; Rate: 1 bolus; Site: right antecubital; mg2 01:29 Follow up: Response: No adverse reaction; IV Status: Completed infusion; IV Intake: mg2 1000ml Disposition: 07/20/19 01:28 Discharged to Home. Impression: Hyperglycemia, unspecified. - Condition is Stable. - Discharge Instructions: Hyperglycemia. - Medication Reconciliation Form, Thank You Letter, Antibiotic Education, Prescription Opioid Use form. - Follow up: Private Physician; When: Upon discharge from the Emergency Department; Reason: Recheck today's complaints, Continuance of care, Re-evaluation by your physician. - Problem is new. - Symptoms have improved. Signatures: Dispatcher [employer] EDTX Chema Roque MD MD tw4 Pete Ariza RN RN mg2 Destin Landeros RN RN rv Corrections: (The following items were deleted from the chart) 01:40 01:28 07/20/2019 01:28 Discharged to Home. Impression: Hyperglycemia, unspecified. rv Condition is Stable. Forms are Medication Reconciliation Form, Thank You Letter, Antibiotic Education, Prescription Opioid Use. Follow up: Private Physician; When: Upon discharge from the Emergency Department; Reason: Recheck today's complaints, Continuance of care, Re-evaluation by your physician. Problem is new. Symptoms have improved. tw4
[2019-07-20 01:51] VITALS: BP 139/85; TEMP 98.4; O2SAT 100
== END 2019-07-20 01:40 | disposition home or self-care (01) ==
LOC: ER 23:53
DX: E11.65 Type 2 diabetes mellitus with hyperglycemia (principal); I10 Essential (primary) hypertension; F17.210 Nicotine dependence, cigarettes, uncomplicated; Z79.4 Long term (current) use of insulin
CPT/HCPCS: 85025; 80048; 36415; 82010; 82947; 80076; 83690; 96360; 99284; J7030

== ENCOUNTER 2022-01-04 08:27 | Emergency (ER) | payer OTHER ==
--- OUTSIDE RECORDS SUMMARY | 2022-01-04 08:38 | XMS REPORT | Continuity of Care Document ---
:1970 Author Organization [facility] t Address [address] [place] [address] Care Team Providers Name Role Phone PCP, PATIENT DOES NOT HAVE A Primary Care Physician UnavailABBE Corral Attending Clinician Unavailable Abbe Avendano MD Attending Clinician Doctor Unassigned, [place] Attending Clinician Unavailable Komal Medel MA Attending Clinician Unavailable Marietta Flynn Attending Clinician MARIETTA FLYNN Attending Clinician Unavailable DIEUDONNE YOUNG Attending Clinician Unavailable Dieudonne Young MD Attending Clinician JASMINE SENA Attending Clinician Unavailable Rosie Pena Attending Clinician ROSIE JEAN Attending Clinician Unavailable LISSETT BERRY Attending Clinician Unavailable Nikos Santana NP Attending Clinician Provider, [facility] Attending Clinician Unavailable Pratibha Brady Attending Clinician PRATIBHA FRANCIS Attending Clinician Unavailable Pob, [facility] Attending Clinician Unavailable Efrain Meyer PHD Attending Clinician [phone] EFRAIN MEYER Attending Clinician Unavailable NIRMALA POE Attending Clinician Unavailable NIRMALA POE Attending Clinician Unavailable MARIETTA FLYNN Admitting Clinician Unavailable DIEUDONNE YOUNG Admitting Clinician Unavailable NIRMALA POE Admitting Clinician Unavailable Payers Payer Name Policy Type Policy Number Effective Date Expiration Date Tonya WEBSTER II [id number] 2018 00:00:00 Problems Condition Condition Condition Status Onset Resolution Last Treating Co mments Source Name Details Category Date Date Treatment Clinician Date No known No known Disease Unive rs active active ity of problems problems [facility] Allergies, Adverse Reactions, Alerts Allergy Allergy Status Severity Reaction(s) Onset Inactive Treating Comm ents Source Name Type Date Date Clinician NO KNOWN Drug Active Univers ALLERGIE Class ity of S [facility] Social History Social Habit Start Date Stop Date Quantity Comments Source Exposure to Not sure [facility] and 2019-05-05 2019-05-05 Never used [facility] exposure 00:00:00 00:00:00 [facility] Sex Ass[birth year] At [birth year] [facility] 00:00:00 00:00:00 [facility] Smoking Status Start Date Stop Date Source Current every day smoker 2019-05-05 00:00:00 Uni versity [facility] Medications Ordered Filled Start Stop Current Ordering Indication Dosage Frequency Signature Comments Components Source Medication Medication Date Date Medication? Clinician (SIG) Name Name dicyclomine 2019-05- No 20mg 20 mg, Uni vers (BENTYL) 06-14 Intramuscu ity of injection 23:45: 11:44 [place]CE[place] 20 mg 00 :00 1 dose, [facility] 04/14/20 at 1745, Routine metroNIDAZO 2019-05 2020- No 500mg 500 mg, U nivers LE (FLAGYL) 06-14 Oral, ity of tablet 500 23:45: 11:44 ONCE, 1 [place] as mg 00 :00 dose, On License Of [facility] 04/14/20 [place] at 1745, Routine
Reason for Anti-Infec tive: Documented Infection< br>Documen luis Infection Site: Abdominal< br>Duratio n of Therapy: 7 days ciprofloxac 2019-05 2020- No 500mg 500 mg, U nivers in HCl 06-14 Oral, ity of (CIPRO) 23:45: 11:44 ONCE, 1 [place] tablet 500 00 :00 dose, [facility] shabnam mg 04/14/20 Branch at 1745, WILIAM
Re ason for Anti-Infec tive: Documented Infection< br>Documen luis Infection Site: Abdominal< br>Duratio n of Therapy: 7 days ketorolac 2019-05- No 30mg 30 mg, Unive rs (TORADOL) 06-14 Slow IV ity of injection 23:00: 21:54 Push, [place] 30 mg 00 :00 ONCE, 1 Medical dose, [facility] 04/14/20 at 1700, Routine
research staff member approving Restricted medication : NIKOS SANTANA proMETHazin 2019-05- No promethazi Univers e 25 mg 06-14 ne 25 mg ity of tablet 22:44: 00:00 tablet [place] 51 :00 [facility] Branch methocarbam 2019-05- No methocarba Univers oL 500 mg 06-14 mol 500 mg ity of tablet 22:44: 00:00 tablet [place] 39 :00 [facility] Branch prednisoLON 2019-05- No prednisolo Univers E acetate 1 06-14 ne acetate i ty of % 22:44: 00:00 1 % eye [place] ophthalmic 18 :00 drops,susp Med ical suspension ension Branch drops escitalopra 2019-05- No escitalopr Univers m oxalate 06-14 am 20 mg ity o f 20 mg 22:43: 00:00 tablet [place] tablet 57 :00 Medical Branch methen-sod 2019-05- No Urogesic-B Univers phos-meth 06-14 lue 81.6 ity o f blue-hyos 22:30: 00:00 mg[place]40.8 [place] (UROGESIC-B 07 :00 mg-0.12 mg Me dical LUE) tablet Branch 81.6-40.8-0 Take 1 .12 mg Tab tablet by oral route for 1 day. ondansetron 2019-05- No ondansetro Univers 4 mg 06-14 n 4 mg ity of disintegrat 22:30: 00:00 disintegra [place] ing tablet 07 :00 ting Medical tablet Branch famotidine 2019-05- No 20mg 20 mg, Univ ers (PEPCID 06-14 Slow IV ity of (PF)) 21:45: 21:43 Push, [place] injection 00 :00 ONCE, 1 Medical 20 mg dose, [facility] 04/14/20 at 1545, WILIAM iohexol 2019-05 2020- No 120mL 120 mL, Unive rs (OMNIPAQUE 06-14 Intravenou it y of 350 21:00: 20:43 s, ONCE, 1 [place] BULK-100 00 :00 dose, [place] [facility] l mL) 04/14/20 Branch injection at 1500, 120 mL Routine sodium 2019-05 Yes 5mL 5 mL, Univers chloride 06-14 Intravenou ity o f (NS) 19:57: s, PRN, [place] injection 5 51 Starting Medi shabnam mL [facility] 04/14/20 at 1357, Until Discontinu ed, Routine, IV line flushing esomeprazol 2019-05 Yes esomeprazo Univers e 40 mg 06-14 le ity of capsule 18:57: magnesium [place] 18 40 mg Medical capsule,[facility] layed release gabapentin 2019-05 Yes gabapentin U nivers 300 mg 06-14 300 mg ity of capsule 18:57: capsule [address] insulin 2019-05 Yes Tresiba Univers degludec 06-14 FlexTouch ity of (TRESIBA 18:57: U-100 [place] FLEXTOUCH 18 insulin Medical U-100) 100 100 Branch unit/mL (3 unit/mL (3 mL) InPn mL) subcutaneo us pen levocetiriz 2019-05 Yes levocetiri Univers ine 5 mg 06-14 zine 5 mg ity of tablet 18:57: tablet [address] meloxicam 2019-05 Yes meloxicam Uni vers 7.5 mg 06-14 7.5 mg ity of tablet 18:57: tablet [address] pantoprazol 2019-05 Yes pantoprazo Univers e 20 mg EC 06-14 le 20 mg ity o f tablet 18:57: tablet,del [place] [address] ayed [facility] release Branch esomeprazol 2019-05 Yes esomeprazo Univers e 40 mg 06-14 le ity of capsule 18:57: magnesium [place] 18 40 mg Medical capsule,[facility] layed release gabapentin 2019-05 Yes gabapentin U nivers 300 mg 06-14 300 mg ity of capsule 18:57: capsule [place] 18 [facility] Branch insulin 2019-05 Yes Tresiba Univers degludec 1-29 FlexTouch ity of (TRESIBA 18:57: U-100 [place] FLEXTOUCH 18 insulin Medical U-100) 100 100 Branch unit/mL (3 unit/mL (3 mL) InPn mL) subcutaneo us pen levocetiriz 2019-05 Yes levocetiri Univers ine 5 mg 06-14 zine 5 mg ity of tablet 18:57: tablet [address] Branch meloxicam 2019-05 Yes meloxicam Uni vers 7.5 mg 06-14 7.5 mg ity of tablet 18:57: tablet [address] Branch pantoprazol 2019-05 Yes pantoprazo Univers e 20 mg EC 06-14 le 20 mg ity o f tablet 18:57: tablet,del [place] [address] ayed Medical release Branch esomeprazol 2019-05 Yes esomeprazo Univers e 40 mg 06-14 le ity of capsule 18:57: magnesium [place] 18 40 mg Medical capsule,de Branch layed release gabapentin 2019-05 Yes gabapentin U nivers 300 mg 06-14 300 mg ity of capsule 18:57: capsule [address] insulin 2019-05 Yes Tresiba Univers degludec 1-29 FlexTouch ity of (TRESIBA 18:57: U-100 [place] FLEXTOUCH 18 insulin Medical U-100) 100 100 Branch unit/mL (3 unit/mL (3 mL) InPn mL) subcutaneo us pen levocetiriz 2019-05 Yes levocetiri Univers ine 5 mg - zine 5 mg ity of tablet 18:57: tablet [address] Branch meloxicam 2019-05 Yes meloxicam Uni vers 7.5 mg 06-14 7.5 mg ity of tablet 18:57: tablet [address] Branch pantoprazol 2019-05 Yes pantoprazo Univers e 20 mg EC 06-14 le 20 mg ity o f tablet 18:57: tablet,del [place] 18 ayed Medical release Branch esomeprazol 2019-05 Yes esomeprazo Univers e 40 mg 06-14 le ity of capsule 18:57: magnesium [place] 18 40 mg Medical capsule,de Branch layed release gabapentin 2019-05 Yes gabapentin U nivers 300 mg 1-29 300 mg ity of capsule 18:57: capsule [place] 18 [facility] Branch insulin 2019-05 Yes Tresiba Univers degludec 1-29 FlexTouch ity of (TRESIBA 18:57: U-100 [place] FLEXTOUCH 18 insulin Medical U-100) 100 100 Branch unit/mL (3 unit/mL (3 mL) InPn mL) subcutaneo us pen levocetiriz 2019-05 Yes levocetiri Univers ine 5 mg 06-14 zine 5 mg ity of tablet 18:57: tablet [address] meloxicam 2019-05 Yes meloxicam Uni vers 7.5 mg 06-14 7.5 mg ity of tablet 18:57: tablet [address] pantoprazol 2019-05 Yes pantoprazo Univers e 20 mg EC 06-14 le 20 mg ity o f tablet 18:57: tablet,del [address] release Branch esomeprazol 2019-05 Yes esomeprazo Univers e 40 mg 06-14 le ity of capsule 18:57: magnesium [place] 18 40 mg Medical capsule,dc Branch layed release gabapentin 2019-05 Yes gabapentin U nivers 300 mg - 300 mg ity of capsule 18:57: capsule [address] insulin 2019-05 Yes Tresiba Univers degludec 1-29 FlexTouch ity of (TRESIBA 18:57: U-100 [place] FLEXTOUCH 18 insulin Medical U-100) 100 100 Branch unit/mL (3 unit/mL (3 mL) InPn mL) subcutaneo us pen levocetiriz 2019-05 Yes levocetiri Univers ine 5 mg - zine 5 mg ity of tablet 18:57: tablet [address] meloxicam 2019-05 Yes meloxicam Uni vers 7.5 mg 06-14 7.5 mg ity of tablet 18:57: tablet [address] pantoprazol 2019-05 Yes pantoprazo Univers e 20 mg EC 06-14 le 20 mg ity o f tablet 18:57: tablet,del [place] [facility] esomeprazol 2019-05 Yes esomeprazo Univers e 40 mg 06-14 le ity of capsule 18:57: magnesium [place] 18 40 mg Medical capsule,de Branch layed release gabapentin 2019-05 Yes gabapentin U nivers 300 mg 1-29 300 mg ity of capsule 18:57: capsule [address] insulin 2019-05 Yes Tresiba Univers degludec 1-29 FlexTouch ity of (TRESIBA 18:57: U-100 [place] FLEXTOUCH 18 insulin Medical U-100) 100 100 Branch unit/mL (3 unit/mL (3 mL) InPn mL) subcutaneo us pen levocetiriz 2019-05 Yes levocetiri Univers ine 5 mg - zine 5 mg ity of tablet 18:57: tablet [address] meloxicam 2019-05 Yes meloxicam Uni vers 7.5 mg 06-14 7.5 mg ity of tablet 18:57: tablet [address] pantoprazol 2019-05 Yes pantoprazo Univers e 20 mg EC 06-14 le 20 mg ity o f tablet 18:57: tablet,del [address] release Branch esomeprazol 2019-05 Yes esomeprazo Univers e 40 mg 06-14 le ity of capsule 18:57: magnesium [place] 18 40 mg Medical capsule,[facility] layed release gabapentin 2019-05 Yes gabapentin U nivers 300 mg -29 300 mg ity of capsule 18:57: capsule [address] insulin 2019-05 Yes Tresiba Univers degludec 1- FlexTouch ity of (TRESIBA 18:57: U-100 [place] FLEXTOUCH 18 insulin Medical U-100) 100 100 Branch unit/mL (3 unit/mL (3 mL) InPn mL) subcutaneo us pen levocetiriz 2019-05 Yes levocetiri Univers ine 5 mg - zine 5 mg ity of tablet 18:57: tablet [address] meloxicam 2019-05 Yes meloxicam Uni vers 7.5 mg -29 7.5 mg ity of tablet 18:57: tablet [address] pantoprazol 2019-05 Yes pantoprazo Univers e 20 mg EC 06-14 le 20 mg ity o f tablet 18:57: tablet,del [address] release Branch esomeprazol 2019-05 Yes esomeprazo Univers e 40 mg 06-14 le ity of capsule 18:57: magnesium [place] 18 40 mg Medical capsule,de Branch layed release gabapentin 2019-05 Yes gabapentin U nivers 300 mg 1-29 300 mg ity of capsule 18:57: capsule [place] 18 [facility] insulin 2019-05 Yes Tresiba Univers degludec 1-29 FlexTouch ity of (TRESIBA 18:57: U-100 [place] FLEXTOUCH 18 insulin Medical U-100) 100 100 Branch unit/mL (3 unit/mL (3 mL) InPn mL) subcutaneo us pen levocetiriz 2019-05 Yes levocetiri Univers ine 5 mg 06-14 zine 5 mg ity of tablet 18:57: tablet [address] meloxicam 2019-05 Yes meloxicam Uni vers 7.5 mg 06-14 7.5 mg ity of tablet 18:57: tablet [address] pantoprazol 2019-05 Yes pantoprazo Univers e 20 mg EC 06-14 le 20 mg ity o f tablet 18:57: tablet,[address] esomeprazol 2019-05 Yes esomeprazo Univers e 40 mg 06-14 le ity of capsule 18:57: magnesium [place] 18 40 mg Medical capsule,dc Branch layed release gabapentin 2019-05 Yes gabapentin U nivers 300 mg - 300 mg ity of capsule 18:57: capsule [address] insulin 2019-05 Yes Tresiba Univers degludec - FlexTouch ity of (TRESIBA 18:57: U-100 [place] FLEXTOUCH 18 insulin Medical U-100) 100 100 Branch unit/mL (3 unit/mL (3 mL) InPn mL) subcutaneo us pen levocetiriz 2019-05 Yes levocetiri Univers ine 5 mg 06-14 zine 5 mg ity of tablet 18:57: tablet [address] meloxicam 2019-05 Yes meloxicam Uni vers 7.5 mg 06-14 7.5 mg ity of tablet 18:57: tablet [address] pantoprazol 2019-05 Yes pantoprazo Univers e 20 mg EC 06-14 le 20 mg ity o f tablet 18:57: tablet,del [address] Branch escitalopra 2019-05 Yes escitalopr Univers m oxalate 06-14 am 20 mg ity of 20 mg 18:57: tablet [address] esomeprazol 2019-05 Yes esomeprazo Univers e 40 mg 06-14 le ity of capsule 18:57: magnesium [place] [address] 40 mg Medical capsule,de Branch layed release gabapentin 2019-05 Yes gabapentin U nivers 300 mg 06-14 300 mg ity of capsule 18:57: capsule [address] insulin 2019-05 Yes Tresiba Univers degludec 06-14 FlexTouch ity of (TRESIBA 18:57: U-100 [place] FLEXTOUCH 18 insulin Medical U-100) 100 100 Branch unit/mL (3 unit/mL (3 mL) InPn mL) subcutaneo us pen levocetiriz 2019-05 Yes levocetiri Univers ine 5 mg 06-14 zine 5 mg ity of tablet 18:57: tablet [address] meloxicam 2019-05 Yes meloxicam Uni vers 7.5 mg 06-14 7.5 mg ity of tablet 18:57: tablet [address] methen-sod 2019-05 Yes Urogesic-B U nivers phos-meth 06-14 lue 81.6 ity of blue-hyos 18:57: mg-40.8 [place] (UROGESIC-B 18 mg-0.12 mg Me dical LUE) tablet Branch 81.6-40.8-0 Take 1 .12 mg Tab tablet by oral route for 1 day. methocarbam 2019-05 Yes methocarba Univers oL 500 mg 06-14 mol 500 mg ity of tablet 18:57: tablet [address] ondansetron 2019-05 Yes ondansetro Univers 4 mg 06-14 n 4 mg ity of disintegrat 18:57: disintegra [place] ing tablet 18 ting Medical tablet Branch pantoprazol 2019-05 Yes pantoprazo Univers e 20 mg EC 06-14 le 20 mg ity o f tablet 18:57: tablet,del [place] [address] ayed Medical release Branch prednisoLON 2019-05 Yes prednisolo Univers E acetate 06-14 ne acetate it y of % 18:57: 1 % eye [place] ophthalmic 18 drops,susp Med ical suspension ension Branch drops proMETHazin 2019-05 Yes promethazi Univers e 25 mg 06-14 ne 25 mg ity of tablet 18:57: tablet [address] escitalopra 2019-05 Yes escitalopr Univers m oxalate 06-14 am 20 mg ity of 20 mg 18:57: tablet [place] tablet 18 Medical Branch esomeprazol 2019-05 Yes esomeprazo Univers e 40 mg 06-14 le ity of capsule 18:57: magnesium [place] 18 40 mg Medical capsule,de Branch layed release gabapentin 2019-05 Yes gabapentin U nivers 300 mg 06-14 300 mg ity of capsule 18:57: capsule [place] [address] Medical Branch insulin 2019-05 Yes Tresiba Univers degludec 06-14 FlexTouch ity of (TRESIBA 18:57: U-100 [place] FLEXTOUCH 18 insulin Medical U-100) 100 100 Branch unit/mL (3 unit/mL (3 mL) InPn mL) subcutaneo us pen levocetiriz 2019-05 Yes levocetiri Univers ine 5 mg 06-14 zine 5 mg ity of tablet 18:57: tablet [place] [address] Medical Branch meloxicam 2019-05 Yes meloxicam Uni vers 7.5 mg 06-14 7.5 mg ity of tablet 18:57: tablet [place] [address] Medical Branch methen-sod 2019-05 Yes Urogesic-B U nivers phos-meth 06-14 lue 81.6 ity of blue-hyos 18:57: mg-40.8 [place] (UROGESIC-B 18 mg-0.12 mg Me dical LUE) tablet Branch 81.6-40.8-0 Take 1 .12 mg Tab tablet by oral route for 1 day. methocarbam 2019-05 Yes methocarba Univers oL 500 mg 06-14 mol 500 mg ity of tablet 18:57: tablet [place] [address] Medical Branch ondansetron 2019-05 Yes ondansetro Univers 4 mg 06-14 n 4 mg ity of disintegrat 18:57: disintegra [place] ing tablet 18 ting Medical tablet Branch pantoprazol 2019-05 Yes pantoprazo Univers e 20 mg EC 06-14 le 20 mg ity o f tablet 18:57: tablet,del [place] 18 ayed Medical release Branch prednisoLON 2019-05 Yes prednisolo Univers E acetate 06-14 ne acetate it y of % 18:57: 1 % eye [place] ophthalmic 18 drops,susp Med ical suspension ension Branch drops proMETHazin 2019-05 Yes promethazi Univers e 25 mg 1-29 ne 25 mg ity of tablet 18:57: tablet [place] 18 Medical Branch esomeprazol 2019-05 Yes esomeprazo Univers e 40 mg -29 le ity of capsule 18:57: magnesium [place] 18 40 mg Medical capsule,de Branch layed release gabapentin 2019-05 Yes gabapentin U nivers 300 mg 06-14 300 mg ity of capsule 18:57: capsule [address] insulin 2019-05 Yes Tresiba Univers degludec - FlexTouch ity of (TRESIBA 18:57: U-100 [place] FLEXTOUCH 18 insulin Medical U-100) 100 100 Branch unit/mL (3 unit/mL (3 mL) InPn mL) subcutaneo us pen levocetiriz 2019-05 Yes levocetiri Univers ine 5 mg 06-14 zine 5 mg ity of tablet 18:57: tablet [address] meloxicam 2019-05 Yes meloxicam Uni vers 7.5 mg 06-14 7.5 mg ity of tablet 18:57: tablet [address] pantoprazol 2019-05 Yes pantoprazo Univers e 20 mg EC 06-14 le 20 mg ity o f tablet 18:57: tablet,del [place] 18 ayed Medical release Branch esomeprazol 2019-05 Yes esomeprazo Univers e 40 mg 06-14 le ity of capsule 18:57: magnesium [place] 18 40 mg Medical capsule,de Branch layed release gabapentin 2019-05 Yes gabapentin U nivers 300 mg 06-14 300 mg ity of capsule 18:57: capsule [address] insulin 2019-05 Yes Tresiba Univers degludec - FlexTouch ity of (TRESIBA 18:57: U[facility] [place] [facility] Medical U-100) 100 100 Branch unit/mL (3 unit/mL (3 mL) InPn mL) subcutaneo us pen levocetiriz 2019-05 Yes levocetiri Univers ine 5 mg -29 zine 5 mg ity of tablet 18:57: tablet [address] meloxicam 2019-05 Yes meloxicam Uni vers 7.5 mg -29 7.5 mg ity of tablet 18:57: tablet [address] Branch pantoprazol 2019-05 Yes pantoprazo Univers e 20 mg EC -29 le 20 mg ity o f tablet 18:57: tablet,del [place] 18 ayed Medical release Branch esomeprazol 2019-05 Yes esomeprazo Univers e 40 mg 06-14 le ity of capsule 18:57: magnesium [place] 18 40 mg Medical capsule,de Branch layed release gabapentin 2019-05 Yes gabapentin U nivers 300 mg - 300 mg ity of capsule 18:57: capsule [address] insulin 2019-05 Yes Tresiba Univers degludec - FlexTouch ity of (TRESIBA 18:57: U-100 [place] FLEXTOUCH 18 insulin Medical U-100) 100 100 Branch unit/mL (3 unit/mL (3 mL) InPn mL) subcutaneo us pen levocetiriz 2019-05 Yes levocetiri Univers ine 5 mg 06-14 zine 5 mg ity of tablet 18:57: tablet [address] meloxicam 2019-05 Yes meloxicam Uni vers 7.5 mg - 7.5 mg ity of tablet 18:57: tablet [address] pantoprazol 2019-05 Yes pantoprazo Univers e 20 mg EC 06-14 le 20 mg ity o f tablet 18:57: tablet,[address] Medical release Branch esomeprazol 2019-05 Yes esomeprazo Univers e 40 mg 06-14 le ity of capsule 18:57: magnesium [place] 18 40 mg Medical capsule,de Branch layed release gabapentin 2019-05 Yes gabapentin U nivers 300 mg 06-14 300 mg ity of capsule 18:57: capsule [address] insulin 2019-05 Yes Tres[employer] Univers degludec - FlexTouch ity of (TRESIBA 18:57: [facility]) 100 100 Branch unit/mL (3 unit/mL (3 mL) InPn mL) subcutaneo us pen levocetiriz 2019-05 Yes levocetiri Univers ine 5 mg -29 zine 5 mg ity of tablet 18:57: tablet [address] meloxicam 2019-05 Yes meloxicam Uni vers 7.5 mg -29 7.5 mg ity of tablet 18:57: tablet [address] pantoprazol 2019-05 Yes pantoprazo Univers e 20 mg EC -29 le 20 mg ity o f tablet 18:57: tablet,del [place] 18 ay Medical release Branch esomeprazol 2019-05 Yes esomeprazo Univers e 40 mg - le ity of capsule 18:57: magnesium [place] 18 40 mg Medical capsule,de Branch layed release gabapentin 2019-05 Yes gabapentin U nivers 300 mg - 300 mg ity of capsule 18:57: capsule [address] Branch insulin 2019-05 Yes Tres[employer] Univers degludec - FlexTouch ity of (TRESIBA 18:57: U-100 [place] FLEXTOUCH 18 insulin Medical U-100) 100 100 Branch unit/mL (3 unit/mL (3 mL) InPn mL) subcutaneo us pen levocetiriz 2019-05 Yes levocetiri Univers ine 5 mg - zine 5 mg ity of tablet 18:57: tablet [address] meloxicam 2019-05 Yes meloxicam Uni vers 7.5 mg -29 7.5 mg ity of tablet 18:57: tablet [address] pantoprazol 2019-05 Yes pantoprazo Univers e 20 mg EC -29 le 20 mg ity o f tablet 18:57: tablet,del [address] release Branch esomeprazol 2019-05 Yes esomeprazo Univers e 40 mg 06-14 le ity of capsule 18:57: magnesium [place] 18 40 mg Medical capsule,de Branch layed release gabapentin 2019-05 Yes gabapentin U nivers 300 mg - 300 mg ity of capsule 18:57: capsule [address] insulin 2019-05 Yes Tres[employer] Univers degludec - FlexTouch ity of (TRESIBA 18:57: [facility] Medical U-[facility]) 100 100 Branch unit/mL (3 unit/mL (3 mL) InPn mL) subcutaneo us pen levocetiriz 2019-05 Yes levocetiri Univers ine 5 mg -29 zine 5 mg ity of tablet 18:57: tablet [address] meloxicam 2019-05 Yes meloxicam Uni vers 7.5 mg -29 7.5 mg ity of tablet 18:57: tablet [address] Branch pantoprazol 2019-05 Yes pantoprazo Univers e 20 mg EC -29 le 20 mg ity o f tablet 18:57: tablet,del [place] 18 ayed Medical release Branch esomeprazol 2019-05 Yes esomeprazo Univers e 40 mg -29 le ity of capsule 12:57: magnesium [place] 18 40 mg Medical capsule,de Branch layed release gabapentin 2019-05 Yes gabapentin U nivers 300 mg -29 300 mg ity of capsule 12:57: capsule [address] Branch insulin 2019-05 Yes Tres[employer] Univers degludec - FlexTouch ity of (TRESIBA 12:57: U-100 [place] FLEXTOUCH 18 insulin Medical U-100) 100 100 Branch unit/mL (3 unit/mL (3 mL) InPn mL) subcutaneo us pen levocetiriz 2019-05 Yes levocetiri Univers ine 5 mg - zine 5 mg ity of tablet 12:57: tablet [address] meloxicam 2019-05 Yes meloxicam Uni vers 7.5 mg -29 7.5 mg ity of tablet 12:57: tablet [address] pantoprazol 2019-05 Yes pantoprazo Univers e 20 mg EC -29 le 20 mg ity o f tablet 12:57: tablet,del [address] Medical release Branch esomeprazol 2019-05 Yes esomeprazo Univers e 40 mg 06-14 le ity of capsule 12:57: magnesium [place] 18 40 mg Medical capsule,de Branch layed release gabapentin 2019-05 Yes gabapentin U nivers 300 mg - 300 mg ity of capsule 12:57: capsule [address] insulin 2019-05 Yes Tres[employer] Univers degludec - FlexTouch ity of (TRESIBA 12:57: U-100 [place] FLEXTOUCH 18 insulin Medical U-100) 100 100 Branch unit/mL (3 unit/mL (3 mL) InPn mL) subcutaneo us pen levocetiriz 2019-05 Yes levocetiri Univers ine 5 mg -29 zine 5 mg ity of tablet 12:57: tablet [address] meloxicam 2019-05 Yes meloxicam Uni vers 7.5 mg -29 7.5 mg ity of tablet 12:57: tablet [address] Branch pantoprazol 2019-05 Yes pantoprazo Univers e 20 mg EC 1-29 le 20 mg ity o f tablet 12:57: tablet,del [place] 18 ayed Medical release Branch dicyclomine 2020- Yes [id number] 20mg Take 1 Univers 20 mg 1-29 tablet by ity of tablet 00:00: mouth 4 [place] (four) Medical times Branch daily as needed for Abdominal pain. dicyclomine 2019- Yes [id number] 20mg Take 1 Univers 20 mg 1-29 tablet by ity of tablet 00:00: mouth [address] [place] [address] (four) Medical times Branch daily as needed for Abdominal pain. dicyclomine 2019- Yes [id number] 20mg Take 1 Univers 20 mg 1-29 tablet by ity of tablet 00:00: mouth [address] [place] [address] [address] [facility]) Medical times Branch daily as needed for Abdominal pain. dicyclomine 2019- Yes [id number] 20mg Take 1 Univers 20 mg 1-29 tablet by ity of tablet 00:00: mouth [address] [place] [address] [facility]) Medical times Branch daily as needed for Abdominal pain. dicyclomine 2019- Yes [id number] 20mg Take 1 Univers 20 mg 1-29 tablet by ity of tablet 00:00: mouth [address] [place] [address] [facility]) Medical times Branch daily as needed for Abdominal pain. dicyclomine 2019- Yes [id number] 20mg Take 1 [facility] 20 mg 1-29 tablet by ity of tablet 00:00: mouth [address] [place] [address] [address] [facility]) Medical times Branch daily as needed for Abdominal pain. dicyclomine 2019- Yes [id number] 20mg Take 1 [facility] 20 mg 1-29 tablet by ity of tablet 00:00: mouth [address] [place] [address] [address] [facility]) Medical times Branch daily as needed for Abdominal pain. dicyclomine 2019- Yes [id number] 20mg Take 1 [facility] 20 mg 1-29 tablet by ity of tablet 00:00: mouth [address] [place] [address] (four) Medical times Branch daily as needed for Abdominal pain. dicyclomine 2019- Yes [id number] 20mg Take 1 [facility] 20 mg 1-29 tablet by ity of tablet 00:00: mouth [address] [place] [address] (four) Medical times Branch daily as needed for Abdominal pain. dicyclomine 2019- Yes [id number] 20mg Take 1 [facility] 20 mg 1-29 tablet by ity of tablet 00:00: mouth (four) Medical times Branch daily as needed for Abdominal pain. dicyclomine 2019-05 Yes [id number] 20mg Take 1 [facility] 20 mg 1-29 tablet by ity of tablet 00:00: mouth (four) Medical times Branch daily as needed for Abdominal pain. dicyclomine 2019-05 Yes [id number] 20mg Take 1 [facility] 20 mg 1-29 tablet by ity of tablet 00:00: mouth (four) Medical times Branch daily as needed for Abdominal pain. dicyclomine 2019-05 Yes [id number] 20mg Take 1 [facility] 20 mg 1-29 tablet by ity of tablet 00:00: mouth (four) Medical times Branch daily as needed for Abdominal pain. dicyclomine 2019-05 Yes [id number] 20mg Take 1 [facility] 20 mg 1-29 tablet by ity of tablet 00:00: mouth (four) Medical times Branch daily as needed for Abdominal pain. dicyclomine 2019-05 Yes [id number] 20mg Take 1 [facility] 20 mg 1-29 tablet by ity of tablet 00:00: mouth (four) Medical times Branch daily as needed for Abdominal pain. dicyclomine 2019-05 Yes [id number] 20mg Take 1 [facility] 20 mg 1-29 tablet by ity of tablet 00:00: mouth (four) Medical times Branch daily as needed for Abdominal pain. dicyclomine 2019-05 Yes [id number] 20mg Take 1 [facility] 20 mg 1-29 tablet by ity of tablet 00:00: mouth [place] (four) Medical times Branch daily as needed for Abdominal pain. metroNIDAZO 2019-05- No [id number] 500mg Take 1 [facility] LE 500 mg 1-29 12-10 tablet by ity of tablet 00:00: 05:59 mouth 2 [place] 00 :00 (two) Medical times Branch daily for 10 days. ciprofloxac 2019-2019- No [id number] 500mg Take 1 [facility] in HCl 500 1-29 12-10 tablet by ity of mg tablet 00:00: 05:59 mouth [place] 00 :00 every 12 Medical (twelve) Branch hours for 10 days. hydrocortis 2019-05- No [id number] 25mg Insert 1 [facility] one 25 mg 1-29 04-22 Suppositor ity of suppository 00:00: 05:59 y into [place] 00 :00 rectum 2 Medical (two) Branch times daily for 7 days. SYNJARDY XR 2020-1 Yes TAKE 1 [facility] ers 25-1,000 mg 0-22 TABLET BY ity of TBph 00:00: MOUTH [place] 00 DAILY WITH Medical MORNING Branch MEAL SYNJARDY XR 2020-1 Yes TAKE 1 [facility] ers 25-1,000 mg 0-22 TABLET BY ity of TBph 00:00: MOUTH [place] 00 DAILY WITH Medical MORNING Branch MEAL SYNJARDY XR 2020-1 Yes TAKE 1 [facility] ers 25-1,000 mg 0-22 TABLET BY ity of TBph 00:00: MOUTH [place] 00 DAILY WITH Medical MORNING Branch MEAL SYNJARDY XR 2020-1 Yes TAKE 1 [facility] ers 25-1,000 mg 0-22 TABLET BY ity of TBph 00:00: MOUTH 00 DAILY WITH Medical MORNING Branch MEAL SYNJARDY XR 2020-1 Yes TAKE 1 [facility] ers 25-1,000 mg 0-22 TABLET BY ity of TBph 00:00: MOUTH 00 DAILY WITH Medical MORNING Branch MEAL SYNJARDY XR 2020-1 Yes TAKE 1 [facility] ers 25-1,000 mg 0-22 TABLET BY ity of TBph 00:00: MOUTH 00 DAILY WITH Medical MORNING Branch MEAL SYNJARDY XR 2020-1 Yes TAKE 1 [facility] ers 25-1,000 mg 0-22 TABLET BY ity of TBph 00:00: MOUTH 00 DAILY WITH Medical MORNING Branch MEAL SYNJARDY XR 2020-1 Yes TAKE 1 [facility] ers 25-1,000 mg 0-22 TABLET BY ity of TBph 00:00: MOUTH [place] 00 DAILY WITH Medical MORNING Branch MEAL SYNJARDY XR 2020-1 Yes TAKE 1 [facility] ers 25-1,000 mg 0-22 TABLET BY ity of TBph 00:00: MOUTH [place] 00 DAILY WITH Medical MORNING Branch MEAL SYNJARDY XR 2020-1 Yes TAKE 1 [facility] ers 25-1,000 mg 0-22 TABLET BY ity of TBph 00:00: MOUTH [place] 00 DAILY WITH Medical MORNING Branch MEAL SYNJARDY XR 2020-1 Yes TAKE 1 [facility] ers 25-1,000 mg 0-22 TABLET BY ity of TBph 00:00: MOUTH [place] 00 DAILY WITH Medical MORNING Branch MEAL SYNJARDY XR 2020-1 Yes TAKE 1 [facility] ers 25-1,000 mg 0-22 TABLET BY ity of TBph 00:00: MOUTH [place] 00 DAILY WITH Medical MORNING Branch MEAL SYNJARDY XR 2020-1 Yes TAKE 1 [facility] ers 25-1,000 mg 0-22 TABLET BY ity of TBph 00:00: MOUTH [place] 00 DAILY WITH Medical MORNING Branch MEAL SYNJARDY XR 2020-1 Yes TAKE 1 [facility] ers 25-1,000 mg 0-22 TABLET BY ity of TBph 00:00: MOUTH [place] 00 DAILY WITH Medical MORNING Branch MEAL SYNJARDY XR 2020-1 Yes TAKE 1 [facility] ers 25-1,000 mg 0-22 TABLET BY ity of TBph 00:00: MOUTH [place] 00 DAILY WITH Medical MORNING Branch MEAL SYNJARDY XR 2020- Yes TAKE 1 [facility] ers 25-1,000 mg 0-22 TABLET BY ity of TBph 00:00: MOUTH [place] 00 DAILY WITH Medical MORNING Branch MEAL SYNJARDY XR 2020- Yes TAKE 1 [facility] ers 25-1,000 mg 0-22 TABLET BY ity of TBph 00:00: MOUTH [place] 00 DAILY WITH Medical MORNING Branch MEAL SYNJARDY XR 2020- Yes TAKE 1 [facility] ers 25-1,000 mg 0-22 TABLET BY ity of TBph 00:00: MOUTH [place] 00 DAILY WITH Medical MORNING Branch MEAL SYNJARDY XR 2020- Yes TAKE 1 [facility] ers 25-1,000 mg 0-22 TABLET BY ity of TBph 00:00: MOUTH [place] 00 DAILY WITH Medical MORNING Branch MEAL estradioL 2020-1 Yes .5mg Take 0.5 [facility] ers 0.5 mg 0-19 mg by ity of tablet 00:00: mouth [place] 00 daily. Medical Branch estradioL 2020-1 Yes .5mg Take 0.5 [facility] ers 0.5 mg 0-19 mg by ity of tablet 00:00: mouth [place] 00 daily. Medical Branch estradioL 2020-1 Yes .5mg Take 0.5 [facility] ers 0.5 mg 0-19 mg by ity of tablet 00:00: mouth [place] 00 daily. Medical Branch estradioL 2020-1 Yes .5mg Take 0.5 [facility] ers 0.5 mg 0-19 mg by ity of tablet 00:00: mouth [place] 00 daily. Medical Branch estradioL 2020-1 Yes .5mg Take 0.5 [facility] ers 0.5 mg 0-19 mg by ity of tablet 00:00: mouth [place] 00 daily. Medical Branch estradioL 2020-1 Yes .5mg Take 0.5 [facility] ers 0.5 mg 0-19 mg by ity of tablet 00:00: mouth [place] 00 daily. Medical Branch estradioL 2020-1 Yes .5mg Take 0.5 [facility] ers 0.5 mg 0-19 mg by ity of tablet 00:00: mouth [place] 00 daily. Medical Branch estradioL 2020-1 Yes .5mg Take 0.5 [facility] ers 0.5 mg 0-19 mg by ity of tablet 00:00: mouth [place] 00 daily. Medical Branch estradioL 2020-1 Yes .5mg Take 0.5 [facility] ers 0.5 mg 0-19 mg by ity of tablet 00:00: mouth [place] 00 daily. Medical Branch estradioL 2020-1 Yes .5mg Take 0.5 [facility] ers 0.5 mg 0-19 mg by ity of tablet 00:00: mouth [place] 00 daily. Medical Branch estradioL 2020-1 Yes .5mg Take 0.5 [facility] ers 0.5 mg 0-19 mg by ity of tablet 00:00: mouth [place] 00 daily. Medical Branch estradioL 2020-1 Yes .5mg Take 0.5 [facility] ers 0.5 mg 0-19 mg by ity of tablet 00:00: mouth [place] 00 daily. Medical Branch estradioL 2020-1 Yes .5mg Take 0.5 Univ ers 0.5 mg 0-19 mg by ity of tablet 00:00: mouth [place] 00 daily. Medical Branch estradioL 2020-1 Yes .5mg Take 0.5 Univ ers 0.5 mg 0-19 mg by ity of tablet 00:00: mouth [place] 00 daily. Medical Branch estradioL 2020-1 Yes .5mg Take 0.5 Univ ers 0.5 mg 0-19 mg by ity of tablet 00:00: mouth [place] 00 daily. Medical Branch estradioL 2020-1 Yes .5mg Take 0.5 Univ ers 0.5 mg 0-19 mg by ity of tablet 00:00: mouth [place] 00 daily. Medical Branch estradioL 2020-1 Yes .5mg Take 0.5 [facility] ers 0.5 mg 0-19 mg by ity of tablet 00:00: mouth [place] 00 daily. Medical Branch estradioL 2020-1 Yes .5mg Take 0.5 Univ ers 0.5 mg 0-19 mg by ity of tablet 00:00: mouth [place] 00 daily. Medical Branch estradioL 2020-1 Yes .5mg Take 0.5 Univ ers 0.5 mg 0-19 mg by ity of tablet 00:00: mouth [place] 00 daily. Medical Branch tiZANidine 2020-1 Yes TAKE 1 [facility] rs 4 mg tablet 0-08 TABLET BY ity of 00:00: MOUTH 3 [place] 00 TIMES A Medical DAY Branch NEEDED tiZANidine 2020-1 Yes TAKE 1 [facility] rs 4 mg tablet 0-08 TABLET BY ity of 00:00: MOUTH 3 00 TIMES A Medical DAY Branch NEEDED tiZANidine 2020-1 2020- No TAKE 1 [facility] ers 4 mg tablet 0-08 11-29 TABLET BY it y of 00:00: 00:00 MOUTH 3 [place] 00 :00 TIMES A Medical DAY Branch NEEDED acetaminoph 2020-0 Yes TAKE BY Uni vers en-codeine 9-30 MOUTH 1 ity of 300-30 mg 00:00: TABLET [place] tablet 00 EVERY 6 Medical HOURS Branch NEEDED FOR PAIN acetaminoph 2020-0 Yes TAKE BY Uni vers en-codeine 9-30 MOUTH 1 ity of 300-30 mg 00:00: TABLET [place] tablet 00 EVERY 6 Medical HOURS Branch NEEDED FOR PAIN acetaminoph 2020-0 Yes TAKE BY Uni vers en-codeine 9-30 MOUTH 1 ity of 300-30 mg 00:00: TABLET [place] tablet 00 EVERY 6 Medical HOURS Branch NEEDED FOR PAIN acetaminoph 2020-0 Yes TAKE BY Uni vers en-codeine 9-30 MOUTH 1 ity of 300-30 mg 00:00: TABLET [place] tablet 00 EVERY 6 Medical HOURS Branch NEEDED FOR PAIN acetaminoph 2020-0 Yes TAKE BY Uni vers en-codeine 9-30 MOUTH 1 ity of 300-30 mg 00:00: TABLET [place] tablet 00 EVERY 6 Medical HOURS Branch NEEDED FOR PAIN acetaminoph 2020-0 Yes TAKE BY Uni vers en-codeine 9-30 MOUTH 1 ity of 300-30 mg 00:00: TABLET [place] tablet 00 EVERY 6 Medical HOURS Branch NEEDED FOR PAIN acetaminoph 2020-0 Yes TAKE BY Uni vers en-codeine 9-30 MOUTH 1 ity of 300-30 mg 00:00: TABLET [place] tablet 00 EVERY 6 Medical HOURS Branch NEEDED FOR PAIN acetaminoph 2020-0 Yes TAKE BY Uni vers en-codeine 9-30 MOUTH 1 ity of 300-30 mg 00:00: TABLET [place] tablet 00 EVERY 6 Medical HOURS Branch NEEDED FOR PAIN acetaminoph 2020-0 Yes TAKE BY Uni vers en-codeine 9-30 MOUTH 1 ity of 300-30 mg 00:00: TABLET [place] tablet 00 EVERY 6 Medical HOURS Branch NEEDED FOR PAIN acetaminoph 2020-0 Yes TAKE BY Uni vers en-codeine 9-30 MOUTH 1 ity of 300-30 mg 00:00: TABLET [place] tablet 00 EVERY 6 Medical HOURS Branch NEEDED FOR PAIN acetaminoph 2020-0 Yes TAKE BY Uni vers en-codeine 9-30 MOUTH 1 ity of 300-30 mg 00:00: TABLET [place] tablet 00 EVERY 6 Medical HOURS Branch NEEDED FOR PAIN acetaminoph 2020-0 Yes TAKE BY Uni vers en-codeine 9-30 MOUTH 1 ity of 300-30 mg 00:00: TABLET [place] tablet 00 EVERY 6 Medical HOURS Branch NEEDED FOR PAIN acetaminoph 2020-0 Yes TAKE BY Uni vers en-codeine 9-30 MOUTH 1 ity of 300-30 mg 00:00: TABLET [place] tablet 00 EVERY 6 Medical HOURS Branch NEEDED FOR PAIN acetaminoph 2020-0 Yes TAKE BY Uni vers en-codeine 9-30 MOUTH 1 ity of 300-30 mg 00:00: TABLET [place] tablet 00 EVERY 6 Medical HOURS Branch NEEDED FOR PAIN acetaminoph 2020-0 Yes TAKE BY Uni vers en-codeine 9-30 MOUTH 1 ity of 300-30 mg 00:00: TABLET [place] tablet 00 EVERY 6 Medical HOURS Branch NEEDED FOR PAIN acetaminoph 2020-0 Yes TAKE BY Uni vers en-codeine 9-30 MOUTH 1 ity of 300-30 mg 00:00: TABLET [place] tablet 00 EVERY 6 Medical HOURS Branch NEEDED FOR PAIN acetaminoph 2020-0 Yes TAKE BY Uni vers en-codeine 9-30 MOUTH 1 ity of 300-30 mg 00:00: TABLET [place] tablet 00 EVERY 6 Medical HOURS Branch NEEDED FOR PAIN acetaminoph 2020-0 Yes TAKE BY Uni vers en-codeine 9-30 MOUTH 1 ity of 300-30 mg 00:00: TABLET [place] tablet 00 EVERY 6 Medical HOURS Branch NEEDED FOR PAIN acetaminoph 2020-0 Yes TAKE BY Uni vers en-codeine 9-30 MOUTH 1 ity of 300-30 mg 00:00: TABLET [place] tablet 00 EVERY 6 Medical HOURS Branch NEEDED FOR PAIN medroxyPROG 2020-0 Yes 5mg Take 5 mg U nivers ESTERone 5 9-25 by mouth ity o f mg tablet 00:00: daily. [place] Medical Branch medroxyPROG 2020-0 Yes 5mg Take 5 mg U nivers ESTERone 5 9-25 by mouth ity o f mg tablet 00:00: daily. [place] [facility] Branch medroxyPROG 2020-0 Yes 5mg Take 5 mg U nivers ESTERone 5 9-25 by mouth ity o f mg tablet 00:00: daily. [place] [facility] Branch medroxyPROG 2020-0 Yes 5mg Take 5 mg U nivers ESTERone 5 9-25 by mouth ity o f mg tablet 00:00: daily. [place] [facility] Branch medroxyPROG 2020-0 Yes 5mg Take 5 mg U nivers ESTERone 5 9-25 by mouth ity o f mg tablet 00:00: daily. [place] [facility] Branch medroxyPROG 2020-0 Yes 5mg Take 5 mg U nivers ESTERone 5 9-25 by mouth ity o f mg tablet 00:00: daily. [place] [facility] Branch medroxyPROG 2020-0 Yes 5mg Take 5 mg U nivers ESTERone 5 9-25 by mouth ity o f mg tablet 00:00: daily. [place] [facility] Branch medroxyPROG 2020-0 Yes 5mg Take 5 mg U nivers ESTERone 5 9-25 by mouth ity o f mg tablet 00:00: daily. [place] [facility] Branch medroxyPROG 2020-0 Yes 5mg Take 5 mg U nivers ESTERone 5 9-25 by mouth ity o f mg tablet 00:00: daily. [place] [facility] Branch medroxyPROG 2020-0 Yes 5mg Take 5 mg U nivers ESTERone 5 9-25 by mouth ity o f mg tablet 00:00: daily. [place] [facility] Branch medroxyPROG 2020-0 Yes 5mg Take 5 mg U nivers ESTERone 5 9-25 by mouth ity o f mg tablet 00:00: daily. [place] [facility] Branch medroxyPROG 2020-0 Yes 5mg Take 5 mg U nivers ESTERone 5 9-25 by mouth ity o f mg tablet 00:00: daily. [place] [facility] Branch medroxyPROG 2020-0 Yes 5mg Take 5 mg U nivers ESTERone 5 9-25 by mouth ity o f mg tablet 00:00: daily. [place] [facility] medroxyPROG 2020-0 Yes 5mg Take 5 mg U nivers ESTERone 5 9-25 by mouth ity o f mg tablet 00:00: daily. [place] [facility] medroxyPROG 2020-0 Yes 5mg Take 5 mg U nivers ESTERone 5 9-25 by mouth ity o f mg tablet 00:00: daily. [place] [facility] medroxyPROG 2020-0 Yes 5mg Take 5 mg U nivers ESTERone 5 9-25 by mouth ity o f mg tablet 00:00: daily. [place] [facility] medroxyPROG 2020-0 Yes 5mg Take 5 mg U nivers ESTERone 5 9-25 by mouth ity o f mg tablet 00:00: daily. [place] [facility] medroxyPROG 2020-0 Yes 5mg Take 5 mg U nivers ESTERone 5 9-25 by mouth ity o f mg tablet 00:00: daily. [place] [facility] medroxyPROG 2020-0 Yes 5mg Take 5 mg U nivers ESTERone 5 9-25 by mouth ity o f mg tablet 00:00: daily. [place] [facility] Diclofenac 2020-0 Yes [id number] Apply to [facility] Sodium 1 % 3- 9107 area(s) 2 ity of gel 00:00: (two) [place] times Medical daily as Branch needed for Pain (scale 4-6) (Apply 2 g do not exceed 4 g in a day). Diclofenac 2020-0 Yes [id number] Apply to [facility] Sodium 1 % 08-09 9107 area(s) 2 ity of gel 00:00: (two) [place] times Medical daily as Branch needed for Pain (scale 4-6) (Apply 2 g do not exceed 4 g in a day). Diclofenac 2020-0 Yes [id number] Apply to [facility] Sodium 1 % 3-26 9107 area(s) 2 ity of gel 00:00: (two) [place] times Medical daily as Branch needed for Pain (scale 4-6) (Apply 2 g do not exceed 4 g in a day). Diclofenac 2020-0 Yes [id number] Apply to [facility] Sodium 1 % 3-26 9107 area(s) 2 ity of gel 00:00: (two) [place] 00 times Medical daily as Branch needed for Pain (scale 4-6) (Apply 2 g do not exceed 4 g in a day). Diclofenac 2020-0 Yes [id number] Apply to [facility] Sodium 1 % 3-26 9107 area(s) 2 ity of gel 00:00: (two) [place] 00 times Medical daily as Branch needed for Pain (scale 4-6) (Apply 2 g do not exceed 4 g in a day). Diclofenac 2020-0 Yes [id number] Apply to [facility] Sodium 1 % 3-26 9107 area(s) 2 ity of gel 00:00: (two) [place] 00 times Medical daily as Branch needed for Pain (scale 4-6) (Apply 2 g do not exceed 4 g in a day). Diclofenac 2020-0 Yes [id number] Apply to [facility] Sodium 1 % 3-26 9107 area(s) 2 ity of gel 00:00: (two) [place] 00 times Medical daily as Branch needed for Pain (scale 4-6) (Apply 2 g do not exceed 4 g in a day). Diclofenac 2020-0 Yes [id number] Apply to [facility] Sodium 1 % 3-26 9107 area(s) 2 ity of gel 00:00: (two) [place] 00 times Medical daily as Branch needed for Pain (scale 4-6) (Apply 2 g do not exceed 4 g in a day). Diclofenac 2020-0 Yes [id number] Apply to [facility] Sodium 1 % 3-26 9107 area(s) 2 ity of gel 00:00: (two) [place] 00 times Medical daily as Branch needed for Pain (scale 4-6) (Apply 2 g do not exceed 4 g in a day). Diclofenac 2020-0 Yes [id number] Apply to [facility] Sodium 1 % 3-26 9107 area(s) 2 ity of gel 00:00: (two) [place] 00 times Medical daily as Branch needed for Pain (scale 4-6) (Apply 2 g do not exceed 4 g in a day). Diclofenac 2020-0 Yes [id number] Apply to [facility] Sodium 1 % 3-26 9107 area(s) 2 ity of gel 00:00: (two) [place] 00 times Medical daily as Branch needed for Pain (scale 4-6) (Apply 2 g do not exceed 4 g in a day). Diclofenac 2020-0 Yes [id number] Apply to [facility] Sodium 1 % 3-26 9107 area(s) 2 ity of gel 00:00: (two) [place] 00 times Medical daily as Branch needed for Pain (scale 4-6) (Apply 2 g do not exceed 4 g in a day). Diclofenac 2020-0 Yes [id number] Apply to [facility] Sodium 1 % 3-26 9107 area(s) 2 ity of gel 00:00: (two) [place] 00 times Medical daily as Branch needed for Pain (scale 4-6) (Apply 2 g do not exceed 4 g in a day). Diclofenac 2020-0 Yes [id number] Apply to [facility] Sodium 1 % 3-26 9107 area(s) 2 ity of gel 00:00: (two) [place] 00 times Medical daily as Branch needed for Pain (scale 4-6) (Apply 2 g do not exceed 4 g in a day). Diclofenac 2020-0 Yes [id number] Apply to [facility] Sodium 1 % 3-26 9107 area(s) 2 ity of gel 00:00: (two) [place] 00 times Medical daily as Branch needed for Pain (scale 4-6) (Apply 2 g do not exceed 4 g in a day). Diclofenac 2020-0 Yes [id number] Apply to [facility] Sodium 1 % 3-26 9107 area(s) 2 ity of gel 00:00: (two) [place] 00 times Medical daily as Branch needed for Pain (scale 4-6) (Apply 2 g do not exceed 4 g in a day). Diclofenac 2020-0 Yes [id number] Apply to [facility] Sodium 1 % 3-26 9107 area(s) 2 ity of gel 00:00: (two) [place] 00 times Medical daily as Branch needed for Pain (scale 4-6) (Apply 2 g do not exceed 4 g in a day). Diclofenac 2020-0 Yes [id number] Apply to [facility] Sodium 1 % 3-26 9107 area(s) 2 ity of gel 00:00: (two) [place] 00 times Medical daily as Branch needed for Pain (scale 4-6) (Apply 2 g do not exceed 4 g in a day). Diclofenac 2020-0 Yes [id number] Apply to [facility] Sodium 1 % 3-26 9107 area(s) 2 ity of gel 00:00: (two) [place] 00 times Medical daily as Branch needed for Pain (scale 4-6) (Apply 2 g do not exceed 4 g in a day). Diclofenac 2020-0 Yes [id number] Apply to [facility] Sodium 1 % 3-26 9107 area(s) 2 ity of gel 00:00: (two) [place] 00 times Medical daily as Branch needed for Pain (scale 4-6) (Apply 2 g do not exceed 4 g in a day). Diclofenac 2020-0 Yes [id number] Apply to [facility] Sodium 1 % 3-26 9107 area(s) 2 ity of gel 00:00: (two) [place] 00 times Medical daily as Branch needed for Pain (scale 4-6) (Apply 2 g do not exceed 4 g in a day). Diclofenac 2020-0 Yes [id number] Apply to [facility] Sodium 1 % 3-26 9107 area(s) 2 ity of gel 00:00: (two) [place] 00 times Medical daily as Branch needed for Pain (scale 4-6) (Apply 2 g do not exceed 4 g in a day). Diclofenac 2020-0 Yes [id number] Apply to [facility] Sodium 1 % 3-26 9107 area(s) 2 ity of gel 00:00: (two) [place] 00 times Medical daily as Branch needed for Pain (scale 4-6) (Apply 2 g do not exceed 4 g in a day). Diclofenac 2020-0 Yes [id number] Apply to [facility] Sodium 1 % 3-26 9107 area(s) 2 ity of gel 00:00: (two) [place] 00 times Medical daily as Branch needed for Pain (scale 4-6) (Apply 2 g do not exceed 4 g in a day). Diclofenac 2020-0 Yes [id number] Apply to [facility] Sodium 1 % 3-26 9107 area(s) 2 ity of gel 00:00: (two) [place] 00 times Medical daily as Branch needed for Pain (scale 4-6) (Apply 2 g do not exceed 4 g in a day). Diclofenac 2020-0 Yes [id number] Apply to [facility] Sodium 1 % 3-26 9107 area(s) 2 ity of gel 00:00: (two) [place] 00 times Medical daily as Branch needed for Pain (scale 4-6) (Apply 2 g do not exceed 4 g in a day). Diclofenac 2020-0 Yes [id number] Apply to [facility] Sodium 1 % 3-26 9107 area(s) 2 ity of gel 00:00: (two) [place] 00 times Medical daily as Branch needed for Pain (scale 4-6) (Apply 2 g do not exceed 4 g in a day). Diclofenac 2020-0 Yes [id number] Apply to [facility] Sodium 1 % 3-26 9107 area(s) 2 ity of gel 00:00: (two) [place] 00 times Medical daily as Branch needed for Pain (scale 4-6) (Apply 2 g do not exceed 4 g in a day). Diclofenac 2020-0 Yes [id number] Apply to [facility] Sodium 1 % 3-26 9107 area(s) 2 ity of gel 00:00: (two) [place] 00 times Medical daily as Branch needed for Pain (scale 4-6) (Apply 2 g do not exceed 4 g in a day). Diclofenac 2020-0 Yes [id number] Apply to [facility] Sodium 1 % 3-26 9107 area(s) 2 ity of gel 00:00: (two) [place] 00 times Medical daily as Branch needed for Pain (scale 4-6) (Apply 2 g do not exceed 4 g in a day). Diclofenac 2020-0 Yes [id number] Apply to [facility] Sodium 1 % 3-26 9107 area(s) 2 ity of gel 00:00: (two) [place] 00 times Medical daily as Branch needed for Pain (scale 4-6) (Apply 2 g do not exceed 4 g in a day). Diclofenac 2020-0 Yes [id number] Apply to [facility] Sodium 1 % 3-26 9107 area(s) 2 ity of gel 00:00: (two) [place] 00 times Medical daily as Branch needed for Pain (scale 4-6) (Apply 2 g do not exceed 4 g in a day). Diclofenac 2020-0 Yes [id number] Apply to [facility] Sodium 1 % 3-26 9107 area(s) 2 ity of gel 00:00: (two) [place] 00 times Medical daily as Branch needed for Pain (scale 4-6) (Apply 2 g do not exceed 4 g in a day). Diclofenac 2020-0 Yes [id number] Apply to [facility] Sodium 1 % 3-26 9107 area(s) 2 ity of gel 00:00: (two) [place] 00 times Medical daily as Branch needed for Pain (scale 4-6) (Apply 2 g do not exceed 4 g in a day). Diclofenac 2020-0 Yes [id number] Apply to [facility] Sodium 1 % 3-26 9107 area(s) 2 ity of gel 00:00: (two) [place] 00 times Medical daily as Branch needed for Pain (scale 4-6) (Apply 2 g do not exceed 4 g in a day). Diclofenac 2020-0 Yes [id number] Apply to [facility] Sodium 1 % 3-26 9107 area(s) 2 ity of gel 00:00: (two) [place] 00 times Medical daily as Branch needed for Pain (scale 4-6) (Apply 2 g do not exceed 4 g in a day). Diclofenac 2020-0 Yes [id number] Apply to [facility] Sodium 1 % 3-26 9107 area(s) 2 ity of gel 00:00: (two) [place] 00 times Medical daily as Branch needed for Pain (scale 4-6) (Apply 2 g do not exceed 4 g in a day). Diclofenac 2020-0 Yes [id number] Apply to [facility] Sodium 1 % 3-26 9107 area(s) 2 ity of gel 00:00: (two) [place] 00 times Medical daily as Branch needed for Pain (scale 4-6) (Apply 2 g do not exceed 4 g in a day). Diclofenac 2020-0 Yes [id number] Apply to [facility] Sodium 1 % 3-26 9107 area(s) 2 ity of gel 00:00: (two) [place] 00 times Medical daily as Branch needed for Pain (scale 4-6) (Apply 2 g do not exceed 4 g in a day). Diclofenac 2020-0 Yes [id number] Apply to [facility] Sodium 1 % 3-26 9107 area(s) 2 ity of gel 00:00: (two) [place] 00 times Medical daily as Branch needed for Pain (scale 4-6) (Apply 2 g do not exceed 4 g in a day). Diclofenac 2020-0 Yes [id number] Apply to [facility] Sodium 1 % 3-26 9107 area(s) 2 ity of gel 00:00: (two) [place] 00 times Medical daily as Branch needed for Pain (scale 4-6) (Apply 2 g do not exceed 4 g in a day). Diclofenac 2020-0 Yes [id number] Apply to [facility] Sodium 1 % 3-26 9107 area(s) 2 ity of gel 00:00: (two) [place] 00 times Medical daily as Branch needed for Pain (scale 4-6) (Apply 2 g do not exceed 4 g in a day). DICLOFENAC 2019-2019- No [id number] 75mg TAKE 1 [facility] 75 mg EC 3-16 -16 9109 TABLET BY ity o f tablet 00:00: 04:59 MOUTH 2 [place] 00 :00 (TWO) Medical TIMES Branch DAILY WITH MEALS FOR 30 DAYS. DICLOFENAC 2019-2019- No [id number] 75mg TAKE 1 [facility] 75 mg EC 3-16 -16 9109 TABLET BY ity o f tablet 00:00: 04:59 MOUTH 2 [place] 00 :00 (TWO) Medical TIMES Branch DAILY WITH MEALS FOR 30 DAYS. DICLOFENAC 2019-2019- No [id number] 75mg TAKE 1 [facility] 75 mg EC 3-16 -16 9109 TABLET BY ity o f tablet 00:00: 04:59 MOUTH 2 [place] 00 :00 (TWO) Medical TIMES Branch DAILY WITH MEALS FOR 30 DAYS. DICLOFENAC 2019-2019- No [id number] 75mg TAKE 1 [facility] 75 mg EC 3-16 -16 9109 TABLET BY ity o f tablet 00:00: 04:59 MOUTH 2 [place] 00 :00 (TWO) Medical TIMES Branch DAILY WITH MEALS FOR 30 DAYS. diclofenac 2019-2019- No [id number] 75mg Take 1 [facility] 75 mg EC 2-18 - 9109 tablet by ity o f tablet 00:00: 04:59 mouth 2 [place] 00 :00 (two) Medical times Branch daily with meals for 30 days. diclofenac 2019-2019- No [id number] 75mg Take 1 [facility] 75 mg EC 2-18 - 9109 tablet by ity o f tablet 00:00: 04:59 mouth 2 [place] 00 :00 (two) [facility] daily with meals for 30 days. diclofenac 2020-0 2020- No [id number] 75mg Take 1 [facility] 75 mg EC 2-18 -20 9109 tablet by ity o f tablet 00:00: 04:59 mouth 2 [place] 00 :00 (two) [facility] times [facility] daily with meals for 30 days. diclofenac 2019- 2020- No [id number] 75mg Take 1 [facility] 75 mg EC 2-18 -20 9109 tablet by ity o f tablet 00:00: 04:59 mouth 2 [place] 00 :00 (two) [facility] daily with meals for 30 days. diclofenac 20200 2020- No [id number] 75mg Take 1 [facility] 75 mg EC 218 16 9109 tablet by ity o f tablet 00:00: 00:00 mouth 2 [place] 00 :00 (two) [facility] daily with meals for 30 days. ibuprofen 2019- Yes [facility] 800 mg 2-16 ity of tablet 00:00: [place] [address] [facility] ibuprofen 2019-1 Yes [facility] 800 mg 2-16 ity of tablet 00:00: [place] [address] [facility] ibuprofen 2019- Yes [facility] 800 mg 2-16 ity of tablet 00:00: [address] ibuprofen 2019- Yes [facility] 800 mg 2-16 ity of tablet 00:00: [address] ibuprofen 2019- Yes [facility] 800 mg 2-16 ity of tablet 00:00: [address] ibuprofen 2019-1 Yes [facility] 800 mg 2-16 ity of tablet 00:00: [place] [address] [facility] ibuprofen 2019-1 Yes [facility] 800 mg 2-16 ity of tablet 00:00: [place] [address] [facility] ibuprofen 2019- Yes [facility] 800 mg 2-16 ity of tablet 00:00: [place] [address] [facility] ibuprofen 2019-1 Yes [facility] 800 mg 2-16 ity of tablet 00:00: [place] [address] [facility] ibuprofen 2019-1 Yes [facility] 800 mg 2-16 ity of tablet 00:00: [place] [address] [facility] ibuprofen 2019-1 Yes [facility] 800 mg 2-16 ity of tablet 00:00: [place] [address] [facility] ibuprofen 2019-1 Yes [facility] 800 mg 2-16 ity of tablet 00:00: [place] [address] [facility] ibuprofen 2019-1 Yes [facility] 800 mg 2-16 ity of tablet 00:00: [place] [address] [facility] ibuprofen 2019-1 Yes [facility] 800 mg 2-16 ity of tablet 00:00: [place] [address] [facility] ibuprofen 2019-1 Yes [facility] 800 mg 2-16 ity of tablet 00:00: [place] [address] [facility] ibuprofen 2019-1 Yes [facility] 800 mg 2-16 ity of tablet 00:00: [place] [address] [facility] ibuprofen 2019-1 Yes [facility] 800 mg 2-16 ity of tablet 00:00: [place] [address] [facility] ibuprofen 2019-1 Yes [facility] 800 mg 2-16 ity of tablet 00:00: [place] [address] [facility] ibuprofen 2019-1 Yes [facility] 800 mg 2-16 ity of tablet 00:00: [place] [facility] ibuprofen 2019-1 Yes [facility] 800 mg 2-16 ity of tablet 00:00: [place] [facility] ibuprofen 2019-1 Yes [facility] 800 mg 2-16 ity of tablet 00:00: [place] [facility] ibuprofen 2019-1 Yes [facility] 800 mg 2-16 ity of tablet 00:00: [place] [facility] ibuprofen 2019-1 Yes [facility] 800 mg 2-16 ity of tablet 00:00: [place] [facility] ibuprofen 2019-1 Yes [facility] 800 mg 2-16 ity of tablet 00:00: [place] [address] [facility] ibuprofen 2019-1 Yes [facility] 800 mg 2-16 ity of tablet 00:00: [place] [address] [facility] ibuprofen 2019-1 Yes [facility] 800 mg 2-16 ity of tablet 00:00: [place] [address] [facility] ibuprofen 2019-1 Yes [facility] 800 mg 2-16 ity of tablet 00:00: [place] [address] [facility] ibuprofen 2019-1 Yes [facility] 800 mg 2-16 ity of tablet 00:00: [place] [address] [facility] ibuprofen 2019-1 Yes [facility] 800 mg 2-16 ity of tablet 00:00: [place] [facility] ibuprofen 2019-1 Yes [facility] 800 mg 2-16 ity of tablet 00:00: [place] [address] [facility] ibuprofen 2019-1 Yes [facility] 800 mg 2-16 ity of tablet 00:00: [place] [address] [facility] ibuprofen 2019-1 Yes [facility] 800 mg 2-16 ity of tablet 00:00: [place] [address] [facility] ibuprofen 2019-1 Yes [facility] 800 mg 2-16 ity of tablet 00:00: [place] [address] [facility] ibuprofen 2019-1 Yes [facility] 800 mg 2-16 ity of tablet 00:00: [place] [address] [facility] ibuprofen 2019-1 Yes [facility] 800 mg 2-16 ity of tablet 00:00: [place] [address] [facility] ibuprofen 2019-1 Yes [facility] 800 mg 2-16 ity of tablet 00:00: [place] [address] [facility] ibuprofen 2019-1 Yes [facility] 800 mg 2-16 ity of tablet 00:00: [place] [address] [facility] ibuprofen 2019-1 Yes [facility] 800 mg 2-16 ity of tablet 00:00: [place] [address] [facility] ibuprofen 2019-1 Yes [facility] 800 mg 2-16 ity of tablet 00:00: [place] [address] [facility] ibuprofen 2019-1 Yes [facility] 800 mg 2-16 ity of tablet 00:00: [place] [address] [facility] ibuprofen 2019- Yes [facility] 800 mg 2-16 ity of tablet 00:00: [place] [address] [facility] ibuprofen 2019- Yes [facility] 800 mg 2-16 ity of tablet 00:00: [place] [address] [facility] ibuprofen 2019- Yes [facility] 800 mg 2-16 ity of tablet 00:00: [place] [address] [facility] ibuprofen 2019- Yes [facility] 800 mg 2-16 ity of tablet 00:00: [place] [address] [facility] ibuprofen 2019- Yes [facility] 800 mg 2-16 ity of tablet 00:00: [place] [address] [facility] ibuprofen 2019- Yes [facility] 800 mg 2-16 ity of tablet 00:00: [place] [address] [facility] ibuprofen 2019- Yes [facility] 800 mg 2-16 ity of tablet 00:00: [place] [address] [facility] ibuprofen 2019- Yes [facility] 800 mg 2-16 ity of tablet 00:00: [place] [address] [facility] ibuprofen 2019- Yes [facility] 800 mg 2-16 ity of tablet 00:00: [place] [address] [facility] ibuprofen 2019- Yes [facility] 800 mg 2-16 ity of tablet 00:00: [place] [address] [facility] ibuprofen 2019- Yes [facility] 800 mg 2-16 ity of tablet 00:00: [place] [address] [facility] ibuprofen 2019- Yes [facility] 800 mg 2-16 ity of tablet 00:00: [place] [address] [facility] ibuprofen 2019- Yes [facility] 800 mg 2-16 ity of tablet 00:00: [place] [address] [facility] ibuprofen 2019- Yes [facility] 800 mg 2-16 ity of tablet 00:00: [place] [address] [facility] ibuprofen 2019- Yes [facility] 800 mg 2-16 ity of tablet 00:00: [place] [address] [facility] NOVOLOG 2019- Yes [facility] FLEXPEN 2-12 ity of U-100 00:00: [place] INSULIN 100 00 Medical unit/mL (3 Branch mL) injection NOVOLOG 2019- Yes [facility] FLEXPEN 2-12 ity of U-100 00:00: [place] INSULIN 100 00 Medical unit/mL (3 Branch mL) injection NOVOLOG 2019- Yes [facility] FLEXPEN 2-12 ity of U-100 00:00: [place] INSULIN 100 00 Medical unit/mL (3 Branch mL) injection NOVOLOG 2019- Yes [facility] FLEXPEN 2-12 ity of U-100 00:00: [place] INSULIN 100 00 Medical unit/mL (3 Branch mL) injection NOVOLOG 2018- Yes [facility] FLEXPEN 2-12 ity of U-100 00:00: [place] INSULIN 100 00 Medical unit/mL (3 Branch mL) injection NOVOLOG 2019- Yes [facility] FLEXPEN 2-12 ity of U-100 00:00: [place] INSULIN 100 00 Medical unit/mL (3 Branch mL) injection NOVOLOG 2018-05 Yes [facility] FLEXPEN 2-12 ity of U-100 00:00: [place] INSULIN 100 00 Medical unit/mL (3 Branch mL) injection NOVOLOG 2018- Yes [facility] FLEXPEN 2-12 ity of U-100 00:00: [place] INSULIN 100 00 Medical unit/mL (3 Branch mL) injection NOVOLOG 2018-05 Yes [facility] FLEXPEN 2-12 ity of U-100 00:00: [place] INSULIN 100 00 Medical unit/mL (3 Branch mL) injection NOVOLOG 2018- Yes [facility] FLEXPEN 2-12 ity of U-100 00:00: [place] INSULIN 100 00 Medical unit/mL (3 Branch mL) injection NOVOLOG 2018- Yes [facility] FLEXPEN 2-12 ity of U-100 00:00: [place] INSULIN 100 00 Medical unit/mL (3 Branch mL) injection NOVOLOG 2018-05 Yes [facility] FLEXPEN 2-12 ity of U-100 00:00: [place] INSULIN 100 00 Medical unit/mL (3 Branch mL) injection NOVOLOG 2019- Yes [facility] FLEXPEN 2-12 ity of U-100 00:00: [place] INSULIN 100 00 Medical unit/mL (3 Branch mL) injection NOVOLOG 2019- Yes [facility] FLEXPEN 2-12 ity of U-100 00:00: [place] INSULIN 100 00 Medical unit/mL (3 Branch mL) injection NOVOLOG 2019- Yes [facility] FLEXPEN 2-12 ity of U-100 00:00: [place] INSULIN 100 00 Medical unit/mL (3 Branch mL) injection NOVOLOG 2019- Yes [facility] FLEXPEN 2-12 ity of U-100 00:00: [place] INSULIN 100 00 Medical unit/mL (3 Branch mL) injection NOVOLOG 2019- Yes [facility] FLEXPEN 2-12 ity of U-100 00:00: [place] INSULIN 100 00 Medical unit/mL (3 Branch mL) injection NOVOLOG 2019- Yes [facility] FLEXPEN 2-12 ity of U-100 00:00: [place] INSULIN 100 00 Medical unit/mL (3 Branch mL) injection NOVOLOG 2018- Yes [facility] FLEXPEN 2-12 ity of U-100 00:00: [place] INSULIN 100 00 Medical unit/mL (3 Branch mL) injection NOVOLOG 2018-05 Yes [facility] FLEXPEN 2-12 ity of U-100 00:00: [place] INSULIN 100 00 Medical unit/mL (3 Branch mL) injection NOVOLOG 2018-05 Yes [facility] FLEXPEN 2-12 ity of U-100 00:00: [place] INSULIN 100 00 Medical unit/mL (3 Branch mL) injection NOVOLOG 2018-05 Yes [facility] FLEXPEN 2-12 ity of U-100 00:00: [place] INSULIN 100 00 Medical unit/mL (3 Branch mL) injection NOVOLOG 2018-05 Yes [facility] FLEXPEN 2-12 ity of U-100 00:00: [place] INSULIN 100 00 Medical unit/mL (3 Branch mL) injection NOVOLOG 2018-05 Yes [facility] FLEXPEN 2-12 ity of U-100 00:00: [place] INSULIN 100 00 Medical unit/mL (3 Branch mL) injection NOVOLOG 2018-05 Yes [facility] FLEXPEN 2-12 ity of U-100 00:00: [place] INSULIN 100 00 Medical unit/mL (3 Branch mL) injection NOVOLOG 2018-05 Yes [facility] FLEXPEN 2-12 ity of U-100 00:00: [place] INSULIN 100 00 Medical unit/mL (3 Branch mL) injection NOVOLOG 2018-05 Yes [facility] FLEXPEN 2-12 ity of U-100 00:00: [place] INSULIN 100 00 Medical unit/mL (3 Branch mL) injection NOVOLOG 2018-05 Yes [facility] FLEXPEN 2-12 ity of U-100 00:00: [place] INSULIN 100 00 Medical unit/mL (3 Branch mL) injection NOVOLOG 2018-05 Yes [facility] FLEXPEN 2-12 ity of U-100 00:00: [place] INSULIN 100 00 Medical unit/mL (3 Branch mL) injection NOVOLOG 2018-05 Yes [facility] FLEXPEN 2-12 ity of U-100 00:00: [place] INSULIN 100 00 Medical unit/mL (3 Branch mL) injection NOVOLOG 2018-05 Yes [facility] FLEXPEN 2-12 ity of U-100 00:00: [place] INSULIN 100 00 Medical unit/mL (3 Branch mL) injection NOVOLOG 2018-05 Yes [facility] FLEXPEN 2-12 ity of U-100 00:00: [place] INSULIN 100 00 Medical unit/mL (3 Branch mL) injection NOVOLOG 2018-05 Yes [facility] FLEXPEN 2-12 ity of U-100 00:00: [place] INSULIN 100 00 Medical unit/mL (3 Branch mL) injection NOVOLOG 2018-05 Yes [facility] FLEXPEN 2-12 ity of U-100 00:00: [place] INSULIN 100 00 Medical unit/mL (3 Branch mL) injection NOVOLOG 2018-05 Yes [facility] FLEXPEN 2-12 ity of U-100 00:00: [place] INSULIN 100 00 Medical unit/mL (3 Branch mL) injection NOVOLOG 2018-05 Yes [facility] FLEXPEN 2-12 ity of U-100 00:00: [place] INSULIN 100 00 Medical unit/mL (3 Branch mL) injection NOVOLOG 2018-05 Yes [facility] FLEXPEN 2-12 ity of U-100 00:00: [place] INSULIN 100 00 Medical unit/mL (3 Branch mL) injection NOVOLOG 2018-05 Yes [facility] FLEXPEN 2-12 ity of U-100 00:00: [place] INSULIN 100 00 Medical unit/mL (3 Branch mL) injection NOVOLOG 2018-05 Yes [facility] FLEXPEN 2-12 ity of U-100 00:00: [place] INSULIN 100 00 Medical unit/mL (3 Branch mL) injection NOVOLOG 2018-05 Yes [facility] FLEXPEN 2-12 ity of U-100 00:00: [place] INSULIN 100 00 Medical unit/mL (3 Branch mL) injection NOVOLOG 2018-05 Yes [facility] FLEXPEN 2-12 ity of U-100 00:00: [place] INSULIN 100 00 Medical unit/mL (3 Branch mL) injection NOVOLOG 2018-05 Yes [facility] FLEXPEN 2-12 ity of U-100 00:00: [place] INSULIN 100 00 Medical unit/mL (3 Branch mL) injection NOVOLOG 2018-05 Yes [facility] FLEXPEN 2-12 ity of U-100 00:00: [place] INSULIN 100 00 Medical unit/mL (3 Branch mL) injection NOVOLOG 2018-05 Yes [facility] FLEXPEN 2-12 ity of U-100 00:00: [place] INSULIN 100 00 Medical unit/mL (3 Branch mL) injection NOVOLOG 2018-05 Yes [facility] FLEXPEN 2-12 ity of U-100 00:00: [place] INSULIN 100 00 Medical unit/mL (3 Branch mL) injection NOVOLOG 2018-05 Yes [facility] FLEXPEN 2-12 ity of U-100 00:00: [place] INSULIN 100 00 Medical unit/mL (3 Branch mL) injection NOVOLOG 2018-05 Yes [facility] FLEXPEN 2-12 ity of U-100 00:00: [place] INSULIN 100 00 Medical unit/mL (3 Branch mL) injection NOVOLOG 2018-05 Yes [facility] FLEXPEN 2-12 ity of U-100 00:00: [place] INSULIN 100 00 Medical unit/mL (3 Branch mL) injection NOVOLOG 2018-05 Yes [facility] FLEXPEN 2-12 ity of U-100 00:00: [place] INSULIN 100 00 Medical unit/mL (3 Branch mL) injection NOVOLOG 2018-05 Yes [facility] FLEXPEN 2-12 ity of U-100 00:00: [place] INSULIN 100 00 Medical unit/mL (3 Branch mL) injection NOVOLOG 2018-05 Yes [facility] FLEXPEN 2-12 ity of U-100 00:00: [place] INSULIN 100 00 Medical unit/mL (3 Branch mL) injection NOVOLOG 2018-05 Yes [facility] FLEXPEN 2-12 ity of U-100 00:00: [place] INSULIN 100 00 Medical unit/mL (3 Branch mL) injection NOVOLOG 2018-05 Yes [facility] FLEXPEN 2-12 ity of U-100 00:00: [place] INSULIN 100 00 Medical unit/mL (3 Branch mL) injection NOVOLOG 2018-05 Yes [facility] FLEXPEN 2-12 ity of U-100 00:00: [place] INSULIN 100 00 Medical unit/mL (3 Branch mL) injection NOVOLOG 2018-05 Yes [facility] FLEXPEN 2-12 ity of U-100 00:00: [place] INSULIN 100 00 Medical unit/mL (3 Branch mL) injection promethazin 2018-05 Yes [facility] [place] s e-dextromet 1-26 ity of horphan 00:00: [place] 6.25-15 00 Medical mg/5 mL Branch syrup amoxicillin 2018-05 Yes Univer s -clavulanat 1-26 ity of e 875-125 00:00: [place] mg per 00 Medical tablet Branch promethazin 2018-05 Yes [facility] s e-dextromet 1-26 ity of horphan 00:00: [place] 6.25-15 00 Medical mg/5 mL Branch syrup amoxicillin 2018-05 Yes [facility]iver s -clavulanat 1-26 ity of e 875-125 00:00: [place] mg per 00 Medical tablet Branch promethazin 2018-05 Yes [facility] s e-dextromet 1-26 ity of horphan 00:00: [place] 6.25-15 00 Medical mg/5 mL Branch syrup amoxicillin 2018- Yes [facility] s -clavulanat 1-26 ity of e 875-125 00:00: [place] mg per 00 Medical tablet Branch promethazin 2018-05 Yes [facility] s e-dextromet 1-26 ity of horphan 00:00: [place] 6.25-15 00 Medical mg/5 mL Branch syrup amoxicillin 2018-05 Yes [facility] s -clavulanat 1-26 ity of e 875-125 00:00: [place] mg per 00 Medical tablet Branch promethazin 2018-05 Yes [facility] s e-dextromet 1-26 ity of horphan 00:00: [place] 6.25-15 00 Medical mg/5 mL Branch syrup amoxicillin 2018- Yes Un[facility] s -clavulanat 1-26 ity of e 875-125 00:00: [place] mg per 00 Medical tablet Branch promethazin 2018-05 Yes [facility] e-dextromet 1-26 ity of horphan 00:00: [place] 6.25-15 00 Medical mg/5 mL Branch syrup amoxicillin 2018- Yes [facility] -clavulanat 1-26 ity of e 875-125 00:00: [place] mg per 00 Medical tablet Branch promethazin 2018- Yes [facility] e-dextromet 1-26 ity of horphan 00:00: [place] 6.25-15 00 Medical mg/5 mL Branch syrup amoxicillin 2018- Yes Univer s -clavulanat 1-26 ity of e 875-125 00:00: [place] mg per 00 Medical tablet Branch promethazin 2018- Yes [facility] s e-dextromet 1-26 ity of horphan 00:00: [place] 6.25-15 00 Medical mg/5 mL Branch syrup amoxicillin 2018- Yes [facility] s -clavulanat 1-26 ity of e 875-125 00:00: [place] mg per 00 Medical tablet Branch promethazin 2018- Yes [facility] s e-dextromet 1-26 ity of horphan 00:00: [place] 6.25-15 00 Medical mg/5 mL Branch syrup amoxicillin 2018- Yes [facility] s -clavulanat 1-26 ity of e 875-125 00:00: [place] mg per 00 Medical tablet Branch promethazin 2018- Yes [facility] s e-dextromet 1-26 ity of horphan 00:00: [place] 6.25-15 00 Medical mg/5 mL Branch syrup amoxicillin 2018-05 Yes [facility] s -clavulanat 1-26 ity of e 875-125 00:00: [place] mg per 00 Medical tablet Branch promethazin 2018-05 Yes [facility] s e-dextromet 1-26 ity of horphan 00:00: [place] 6.25-15 00 Medical mg/5 mL Branch syrup amoxicillin 2018- Yes [facility] s -clavulanat 1-26 ity of e 875-125 00:00: [place] mg per 00 Medical tablet Branch promethazin 2018- Yes [facility] s e-dextromet 1-26 ity of horphan 00:00: [place] 6.25-15 00 Medical mg/5 mL Branch syrup amoxicillin 2018- Yes [facility] -clavulanat 1-26 ity of e 875-125 00:00: [place] mg per 00 Medical tablet Branch promethazin 2018- Yes [facility] s e-dextromet 1-26 ity of horphan 00:00: [place] 6.25-15 00 Medical mg/5 mL Branch syrup amoxicillin 2018- Yes [facility] s -clavulanat 1-26 ity of e 875-125 00:00: [place] mg per 00 Medical tablet Branch promethazin 2018- Yes [facility] e-dextromet 1-26 ity of horphan 00:00: [place] 6.25-15 00 Medical mg/5 mL Branch syrup amoxicillin 2018- Yes [facility] s -clavulanat 1-26 ity of e 875-125 00:00: [place] mg per 00 Medical tablet Branch promethazin 2018- Yes [facility] s e-dextromet 1-26 ity of horphan 00:00: [place] 6.25-15 00 Medical mg/5 mL Branch syrup amoxicillin 2018- Yes [facility] s -clavulanat 1-26 ity of e 875-125 00:00: [place] mg per 00 Medical tablet Branch promethazin 2018- Yes [facility] e-dextromet 1-26 ity of horphan 00:00: [place] 6.25-15 00 Medical mg/5 mL Branch syrup amoxicillin 2018-05 Yes [facility] s -clavulanat 1-26 ity of e 875-125 00:00: [place] mg per 00 Medical tablet Branch promethazin 2018-05 Yes [facility] s e-dextromet 1-26 ity of horphan 00:00: [place] 6.25-15 00 Medical mg/5 mL Branch syrup amoxicillin 2018-05 Yes [facility] s -clavulanat 1-26 ity of e 875-125 00:00: [place] mg per 00 Medical tablet Branch promethazin 2018-05 Yes [facility] s e-dextromet 1-26 ity of horphan 00:00: [place] 6.25-15 00 Medical mg/5 mL Branch syrup amoxicillin 2018-05 Yes [facility] s -clavulanat 1-26 ity of e 875-125 00:00: [place] mg per 00 Medical tablet Branch promethazin 2018-05 Yes [facility] e-dextromet 1-26 ity of horphan 00:00: [place] 6.25-15 00 Medical mg/5 mL Branch syrup amoxicillin 2018-05 Yes [facility] -clavulanat 1-26 ity of e 875-125 00:00: [place] mg per 00 Medical tablet Branch amoxicillin 2018- Yes [facility] -clavulanat 1-26 ity of e 875-125 00:00: [place] mg per 00 Medical tablet Branch promethazin 2018-05 Yes [facility] e-dextromet 1-26 ity of horphan 00:00: [place] 6.25-15 00 Medical mg/5 mL Branch syrup amoxicillin 2018-05 Yes [facility] -clavulanat 1-26 ity of e 875-125 00:00: [place] mg per 00 Medical tablet Branch promethazin 2018-05 Yes [facility] s e-dextromet 1-26 ity of horphan 00:00: [place] 6.25-15 00 Medical mg/5 mL Branch syrup amoxicillin 2018- Yes [facility] s -clavulanat 1-26 ity of e 875-125 00:00: [place] mg per 00 Medical tablet Branch promethazin 2018-05 Yes [facility] e-dextromet 1-26 ity of horphan 00:00: [place] 6.25-15 00 Medical mg/5 mL Branch syrup amoxicillin 2018-05 Yes [facility] s -clavulanat 1-26 ity of e 875-125 00:00: [place] mg per 00 Medical tablet Branch promethazin 2018-05 Yes [facility] s e-dextromet 1-26 ity of horphan 00:00: [place] 6.25-15 00 Medical mg/5 mL Branch syrup amoxicillin 2018-05 Yes [facility] -clavulanat 1-26 ity of e 875-125 00:00: [place] mg per 00 Medical tablet Branch promethazin 2018-05 Yes [facility] e-dextromet 1-26 ity of horphan 00:00: [place] 6.25-15 00 Medical mg/5 mL Branch syrup amoxicillin 2018-05 Yes [facility] -clavulanat 1-26 ity of e 875-125 00:00: [place] mg per 00 Medical tablet Branch promethazin 2018-05 Yes [facility] e-dextromet 1-26 ity of horphan 00:00: [place] 6.25-15 00 Medical mg/5 mL Branch syrup promethazin 2018-05 Yes [facility] e-dextromet 1-26 ity of horphan 00:00: [place] 6.25-15 00 Medical mg/5 mL Branch syrup amoxicillin 2018-05 Yes [facility] -clavulanat 1-26 ity of e 875-125 00:00: [place] mg per 00 Medical tablet Branch promethazin 2018-05 Yes [facility] e-dextromet 1-26 ity of horphan 00:00: [place] 6.25-15 00 Medical mg/5 mL Branch syrup amoxicillin 2018-05 Yes [facility] -clavulanat 1-26 ity of e 875-125 00:00: [place] mg per 00 Medical tablet Branch promethazin 2018-05 Yes [facility] e-dextromet 1-26 ity of horphan 00:00: [place] 6.25-15 00 Medical mg/5 mL Branch syrup amoxicillin 2018-05 Yes [facility] -clavulanat 1-26 ity of e 875-125 00:00: [place] mg per 00 Medical tablet Branch promethazin 2018-05 Yes [facility] e-dextromet 1-26 ity of horphan 00:00: [place] 6.25-15 00 Medical mg/5 mL Branch syrup amoxicillin 2018-05 Yes [facility] -clavulanat 1-26 ity of e 875-125 00:00: [place] mg per 00 Medical tablet Branch amoxicillin 2018-05 Yes [facility] s -clavulanat 1-26 ity of e 875-125 00:00: [place] mg per 00 Medical tablet Branch promethazin 2018-05 Yes [facility] e-dextromet 1-26 ity of horphan 00:00: [place] 6.25-15 00 Medical mg/5 mL Branch syrup amoxicillin 2018-05 Yes [facility] -clavulanat 1-26 ity of e 875-125 00:00: [place] mg per 00 Medical tablet Branch promethazin 2018-05 Yes [facility] e-dextromet -26 ity of horphan 00:00: [place] 6.25-15 00 Medical mg/5 mL Branch syrup amoxicillin 2018-05 Yes [facility] s -clavulanat 1-26 ity of e 875-125 00:00: [place] mg per 00 Medical tablet Branch promethazin 2018-05 Yes [facility] e-dextromet -26 ity of horphan 00:00: [place] 6.25-15 00 Medical mg/5 mL Branch syrup amoxicillin 2018-05 Yes [facility] s -clavulanat 1-26 ity of e 875-125 00:00: [place] mg per 00 Medical tablet Branch promethazin 2018-05 Yes [facility] e-dextromet -26 ity of horphan 00:00: [place] 6.25-15 00 Medical mg/5 mL Branch syrup amoxicillin 2018-05 Yes [facility] s -clavulanat 1-26 ity of e 875-125 00:00: [place] mg per 00 Medical tablet Branch promethazin 2018-05 Yes [facility] e-dextromet 1-26 ity of horphan 00:00: [place] 6.25-15 00 Medical mg/5 mL Branch syrup amoxicillin 2018-05 Yes [facility] -clavulanat 1-26 ity of e 875-125 00:00: [place] mg per 00 Medical tablet Branch promethazin 2018-05 Yes [facility] e-dextromet 1-26 ity of horphan 00:00: [place] 6.25-15 00 Medical mg/5 mL Branch syrup promethazin 2018-05 Yes [facility] e-dextromet -26 ity of horphan 00:00: [place] 6.25-15 00 Medical mg/5 mL Branch syrup amoxicillin 2018- Yes [facility] s -clavulanat -26 ity of e 875-125 00:00: [place] mg per 00 Medical tablet Branch promethazin 2018-05 Yes [facility] s e-dextromet -26 ity of horphan 00:00: [place] 6.25-15 00 Medical mg/5 mL Branch syrup amoxicillin 2018- Yes [facility] s -clavulanat -26 ity of e 875-125 00:00: [place] mg per 00 Medical tablet Branch promethazin 2018-05 Yes [facility] e-dextromet -26 ity of horphan 00:00: [place] 6.25-15 00 Medical mg/5 mL Branch syrup amoxicillin 2018- Yes [facility] s -clavulanat -26 ity of e 875-125 00:00: [place] mg per 00 Medical tablet Branch amoxicillin 2018- 2020- No [facility] rs -clavulanat -04-14 ity of e 875-125 00:00: 00:00 [place] mg per 00 :00 Medical tablet Branch promethazin 2018- 2020- No [facility] e-dextromet 06-11-29 ity of horphan 00:00: 00:00 [place] 6.25-15 00 :00 Medical mg/5 mL Branch syrup pregabalin 2018- Yes [facility] 75 mg 1-15 ity of capsule 00:00: [place] 00 Medical Branch rOPINIRole 2019- Yes [facility] 1 mg tablet 1-15 ity of 00:00: [place] 00 Medical Branch TRULICITY 2019- Yes [facility] 1.5 mg/0.5 1-15 ity of mL PnIj 00:00: [place] 00 [facility] Branch atorvastati 2019- Yes [facility] n 10 mg 1-15 ity of tablet 00:00: [place] 00 Medical Branch TRULICITY 2019- Yes [facility] 1.5 mg/0.5 1-15 ity of mL PnIj 00:00: [place] 00 Medical Branch DULoxetine 2019- Yes [facility] 60 mg 1-15 ity of capsule 00:00: [place] 00 Medical Branch LEVEMIR 2019- Yes [facility] FLEXTOUCH 1-15 ity of U-100 00:00: [place] INSULN 100 00 Medical unit/mL (3 Branch mL) injection LINZESS 145 2018- Yes [facility] s mcg capsule 1-15 ity of 00:00: [place] [address] [facility] DULoxetine 2019- Yes [facility] 60 mg 1-15 ity of capsule 00:00: [place] [address] [facility] losartan 50 2018- Yes [facility] mg tablet 1-15 ity of 00:00: [place] [address] [facility] pregabalin 2019- Yes [facility] 75 mg 1-15 ity of capsule 00:00: [place] [address] [facility] rOPINIRole 2018- Yes [facility] 1 mg tablet 1-15 ity of 00:00: [place] [address] [facility] Branch atorvastati 2019- Yes [facility] n 10 mg 1-15 ity of tablet 00:00: [place] [address] [facility] TRULICITY 2018- Yes [facility] 1.5 mg/0.5 1-15 ity of mL PnIj 00:00: [place] [address] [facility] DULoxetine 2019- Yes [facility] 60 mg 1-15 ity of capsule 00:00: [place] [address] [facility] Branch LEVEMIR 2018- Yes [facility] FLEXTOUCH 1-15 ity of U-100 00:00: [place] INSULN 100 00 Medical unit/mL (3 Branch mL) injection LINZESS 145 2018- Yes [facility] s mcg capsule 1-15 ity of 00:00: [address] losartan 50 2018- Yes [facility] s mg tablet 1-15 ity of 00:00: [place] [address] [facility] pregabalin 2019- Yes [facility] 75 mg 1-15 ity of capsule 00:00: [place] [address] [facility] rOPINIRole 2019- Yes [facility] 1 mg tablet 1-15 ity of 00:00: [place] [address] [facility] atorvastati 2019- Yes [facility] n 10 mg 1-15 ity of tablet 00:00: [place] [address] [facility] TRULICITY 2019- Yes [facility] 1.5 mg/0.5 1-15 ity of mL PnIj 00:00: [place] [address] [facility] DULoxetine 2019- Yes [facility] 60 mg 1-15 ity of capsule 00:00: [place] [address] [facility] Branch LEVEMIR 2019- Yes [facility] FLEXTOUCH 1-15 ity of U-100 00:00: [place] INSULN 100 00 Medical unit/mL (3 Branch mL) injection LINZESS 145 2018- Yes [facility] s mcg capsule 1-15 ity of 00:00: [place] [facility] losartan 50 2018- Yes [facility] mg tablet 1-15 ity of 00:00: [facility] pregabalin 2018- Yes [facility] 75 mg 1-15 ity of capsule 00:00: [place] [address] [facility] LEVEMIR 2018- Yes [facility] FLEXTOUCH 1-15 ity of U-100 00:00: [place] INSULN 100 00 Medical unit/mL (3 Branch mL) injection rOPINIRole 2019- Yes [facility] 1 mg tablet 1-15 ity of 00:00: [place] [address] [facility] LINZESS 145 2018- Yes [facility] mcg capsule 1-15 ity of 00:00: [place] [address] [facility] atorvastati 2018- Yes [facility] s n 10 mg 1-15 ity of tablet 00:00: [place] [address] [facility] TRULICITY 2018- Yes [facility] 1.5 mg/0.5 1-15 ity of mL PnIj 00:00: [place] [address] [facility] DULoxetine 2019- Yes [facility] 60 mg 1-15 ity of capsule 00:00: [place] [address] [facility] LEVEMIR 2018-05 Yes [facility] FLEXTOUCH 1-15 ity of U-100 00:00: [place] INSULN 100 00 Medical unit/mL (3 Branch mL) injection LINZESS 145 2018- Yes [facility] mcg capsule 1-15 ity of 00:00: [place] [address] [facility] losartan 50 2018- Yes [facility] mg tablet 1-15 ity of 00:00: [place] [address] [facility] losartan 50 2019- Yes [facility] mg tablet 1-15 ity of 00:00: [place] [address] [facility] pregabalin 2019- Yes [facility] 75 mg 1-15 ity of capsule 00:00: [place] [address] [facility] rOPINIRole 2019- Yes [facility] 1 mg tablet 1-15 ity of 00:00: [place] [address] [facility] atorvastati 2019- Yes [facility] s n 10 mg 1-15 ity of tablet 00:00: [place] [address] [facility] TRULICITY 2019- Yes [facility] 1.5 mg/0.5 1-15 ity of mL PnIj 00:00: [place] [address] [facility] rOPINIRole 2019- Yes [facility] 1 mg tablet 1-15 ity of 00:00: [place] [address] [facility] DULoxetine 2019- Yes [facility] 60 mg 1-15 ity of capsule 00:00: [place] [address] [facility] LEVEMIR 2019- Yes [facility] FLEXTOUCH 1-15 ity of U-100 00:00: [place] INSULN 100 00 Medical unit/mL (3 Branch mL) injection LINZESS 145 2018- Yes [facility] mcg capsule 1-15 ity of 00:00: [place] [address] [facility] losartan 50 2018- Yes [facility] mg tablet 1-15 ity of 00:00: [place] [address] [facility] pregabalin 2019- Yes [facility] 75 mg 1-15 ity of capsule 00:00: [place] [address] [facility] rOPINIRole 2019- Yes [facility] 1 mg tablet 1-15 ity of 00:00: [place] [address] [facility] atorvastati 2018- Yes [facility] s n 10 mg 1-15 ity of tablet 00:00: [address] [facility] TRULICITY 2019- Yes [facility] 1.5 mg/0.5 1-15 ity of mL PnIj 00:00: [place] [address] [facility] DULoxetine 2019- Yes [facility] 60 mg 1-15 ity of capsule 00:00: [place] [address] [facility] LEVEMIR 2018- Yes [facility] FLEXTOUCH 1-15 ity of U-100 00:00: [place] INS[facility]N 100 00 Medical unit/mL (3 Branch mL) injection LINZESS 145 2018- Yes [facility] mcg capsule 1-15 ity of 00:00: [place] [address] [facility] losartan 50 2018- Yes [facility] mg tablet 1-15 ity of 00:00: [place] [address] [facility] pregabalin 2019- Yes [facility] 75 mg 1-15 ity of capsule 00:00: [place] [address] [facility] rOPINIRole 2019- Yes [facility] 1 mg tablet 1-15 ity of 00:00: [place] [address] [facility] atorvastati 2019- Yes [facility] n 10 mg 1-15 ity of tablet 00:00: [place] [address] [facility] TRULICITY 2019- Yes [facility] 1.5 mg/0.5 1-15 ity of mL PnIj 00:00: [place] [address] [facility] DULoxetine 2019- Yes [facility] 60 mg 1-15 ity of capsule 00:00: [place] [address] [facility] LEVEMIR 2019- Yes [facility] FLEXTOUCH 1-15 ity of U-100 00:00: [place] INSULN 100 00 Medical unit/mL (3 Branch mL) injection LINZESS 145 2018- Yes [facility] mcg capsule 1-15 ity of 00:00: [place] [facility] losartan 50 2018-05 Yes [facility] s mg tablet 1-15 ity of 00:00: [place] [address] [facility] pregabalin 2019- Yes [facility] 75 mg 1-15 ity of capsule 00:00: [place] [address] [facility] rOPINIRole 2019- Yes [facility] 1 mg tablet 1-15 ity of 00:00: [place] [address] [facility] atorvastati 2018- Yes [facility] s n 10 mg 1-15 ity of tablet 00:00: [place] [address] [facility] TRULICITY 2018- Yes [facility] 1.5 mg/0.5 1-15 ity of mL PnIj 00:00: [place] [address] [facility] DULoxetine 2018- Yes [facility] 60 mg 1-15 ity of capsule 00:00: [place] [address] [facility] LEVEMIR 2018- Yes [facility] FLEXTOUCH 1-15 ity of U-100 00:00: [place] INSULN 100 00 Medical unit/mL (3 Branch mL) injection LINZESS 145 2018- Yes [facility] s mcg capsule 1-15 ity of 00:00: [place] [address] [facility] losartan 50 2018- Yes [facility] mg tablet 1-15 ity of 00:00: [place] [address] [facility] pregabalin 2019- Yes [facility] 75 mg 1-15 ity of capsule 00:00: [place] [address] [facility] rOPINIRole 2019- Yes [facility] 1 mg tablet 1-15 ity of 00:00: [place] [address] [facility] atorvastati 2019- Yes [facility] s n 10 mg 1-15 ity of tablet 00:00: [place] [address] [facility] TRULICITY 2019- Yes [facility] 1.5 mg/0.5 1-15 ity of mL PnIj 00:00: [place] [address] [facility] DULoxetine 2019- Yes [facility] 60 mg 1-15 ity of capsule 00:00: [place] [address] [facility] LEVEMIR 2018- Yes [facility] FLEXTOUCH 1-15 ity of U-100 00:00: [place] INSULN 100 00 Medical unit/mL (3 Branch mL) injection LINZESS 145 2018- Yes [facility] s mcg capsule 1-15 ity of 00:00: [place] [facility] losartan 50 2019- Yes [facility] mg tablet 1-15 ity of 00:00: [place] [facility] pregabalin 2019-1 Yes [facility] 75 mg 1-15 ity of capsule 00:00: [place] [facility] rOPINIRole 2019-1 Yes [facility] 1 mg tablet 1-15 ity of 00:00: [place] [address] [facility] atorvastati 2019-1 Yes [facility] s n 10 mg 1-15 ity of tablet 00:00: [place] [address] [facility] TRULICITY 2019-1 Yes [facility] 1.5 mg/0.5 1-15 ity of mL PnIj 00:00: [place] [address] [facility] DULoxetine 2019-1 Yes [facility] 60 mg 1-15 ity of capsule 00:00: [place] [address] [facility] LEVEMIR 2019- Yes [facility] FLEXTOUCH 1-15 ity of U-100 00:00: [place] INSULN 100 00 Medical unit/mL (3 Branch mL) injection LINZESS 145 2018- Yes [facility] s mcg capsule 1-15 ity of 00:00: [place] [address] [facility] losartan 50 2018- Yes [facility] mg tablet 1-15 ity of 00:00: [place] [address] [facility] pregabalin 2019- Yes [facility] 75 mg 1-15 ity of capsule 00:00: [place] [address] [facility] rOPINIRole 2019-1 Yes [facility] 1 mg tablet 1-15 ity of 00:00: [place] [address] [facility] atorvastati 2019- Yes [facility] s n 10 mg 1-15 ity of tablet 00:00: [place] [address] [facility] TRULICITY 2019-1 Yes [facility] 1.5 mg/0.5 1-15 ity of mL PnIj 00:00: [place] [address] [facility] DULoxetine 2019-1 Yes [facility] 60 mg 1-15 ity of capsule 00:00: [place] [address] [facility] LEVEMIR 2019- Yes [facility] FLEXTOUCH 1-15 ity of U-100 00:00: [place] INSULN 100 00 Medical unit/mL (3 Branch mL) injection LINZESS 145 2018- Yes [facility] s mcg capsule 1-15 ity of 00:00: [place] [address] [facility] losartan 50 2019- Yes [facility] mg tablet 1-15 ity of 00:00: [place] [address] [facility] pregabalin 2019-1 Yes [facility] 75 mg 1-15 ity of capsule 00:00: [place] [facility] rOPINIRole 2019- Yes [facility] 1 mg tablet 1-15 ity of 00:00: [place] 00 [facility] atorvastati 2019- Yes [facility] s n 10 mg 1-15 ity of tablet 00:00: [place] [address] [facility] TRULICITY 2019- Yes [facility] 1.5 mg/0.5 1-15 ity of mL PnIj 00:00: [place] [address] [facility] DULoxetine 2019- Yes [facility] 60 mg 1-15 ity of capsule 00:00: [place] [address] [facility] LEVEMIR 2019- Yes [facility] FLEXTOUCH 1-15 ity of U-100 00:00: [place] INSULN 100 00 Medical unit/mL (3 Branch mL) injection LINZESS 145 2018- Yes [facility] s mcg capsule 1-15 ity of 00:00: [place] [address] [facility] losartan 50 2018- Yes [facility] mg tablet 1-15 ity of 00:00: [place] [address] [facility] pregabalin 2019- Yes [facility] 75 mg 1-15 ity of capsule 00:00: [place] [address] [facility] rOPINIRole 2019- Yes [facility] 1 mg tablet 1-15 ity of 00:00: [place] [address] [facility] atorvastati 2019- Yes [facility] s n 10 mg 1-15 ity of tablet 00:00: [place] [address] [facility] TRULICITY 2019- Yes [facility] 1.5 mg/0.5 1-15 ity of mL PnIj 00:00: [place] [address] [facility] DULoxetine 2019- Yes [facility] 60 mg 1-15 ity of capsule 00:00: [place] [address] [facility] LEVEMIR 2019- Yes [facility] FLEXTOUCH 1-15 ity of U-100 00:00: [place] INSULN 100 00 Medical unit/mL (3 Branch mL) injection LINZESS 145 2018- Yes [facility] s mcg capsule 1-15 ity of 00:00: [place] [address] [facility] losartan 50 2018- Yes [facility] mg tablet 1-15 ity of 00:00: [place] [address] [facility] pregabalin 2019- Yes [facility] 75 mg 1-15 ity of capsule 00:00: [place] [address] [facility] rOPINIRole 2019- Yes [facility] 1 mg tablet 1-15 ity of 00:00: [place] [address] [facility] atorvastati 2019- Yes [facility] s n 10 mg 1-15 ity of tablet 00:00: [place] [facility] TRULICITY 2019- Yes [facility] 1.5 mg/0.5 1-15 ity of mL PnIj 00:00: [facility] DULoxetine 2019- Yes [facility] 60 mg 1-15 ity of capsule 00:00: [place] [address] [facility] LEVEMIR 2018-05 Yes [facility] FLEXTOUCH 1-15 ity of U-100 00:00: [place] INSULN 100 00 Medical unit/mL (3 Branch mL) injection LINZESS 145 2018- Yes [facility] s mcg capsule 1-15 ity of 00:00: [place] [address] [facility] losartan 50 2018- Yes [facility] s mg tablet 1-15 ity of 00:00: [place] [address] [facility] pregabalin 2019- Yes [facility] 75 mg 1-15 ity of capsule 00:00: [place] [address] [facility] rOPINIRole 2018- Yes [facility] 1 mg tablet 1-15 ity of 00:00: [place] [address] [facility] atorvastati 2018-05 Yes [facility] s n 10 mg 1-15 ity of tablet 00:00: [place] [address] [facility] TRULICITY 2018- Yes [facility] 1.5 mg/0.5 1-15 ity of mL PnIj 00:00: [place] [address] [facility] DULoxetine 2019- Yes [facility] 60 mg 1-15 ity of capsule 00:00: [place] [address] [facility] LEVEMIR 2018- Yes [facility] FLEXTOUCH 1-15 ity of U-100 00:00: [place] INSULN 100 00 Medical unit/mL (3 Branch mL) injection LINZESS 145 2018- Yes [facility] s mcg capsule 1-15 ity of 00:00: [place] [address] [facility] losartan 50 2018- Yes [facility] s mg tablet 1-15 ity of 00:00: [place] [address] [facility] pregabalin 2019- Yes [facility] 75 mg 1-15 ity of capsule 00:00: [place] [address] [facility] rOPINIRole 2019- Yes [facility] 1 mg tablet 1-15 ity of 00:00: [place] [address] [facility] atorvastati 2018- Yes [facility] s n 10 mg 1-15 ity of tablet 00:00: [place] [address] [facility] TRULICITY 2019- Yes [facility] 1.5 mg/0.5 1-15 ity of mL PnIj 00:00: [place] [address] [facility] DULoxetine 2019- Yes [facility] 60 mg 1-15 ity of capsule 00:00: [place] [address] [facility] LEVEMIR 2019- Yes [facility] FLEXTOUCH 1-15 ity of U-100 00:00: [place] INSULN 100 00 Medical unit/mL (3 Branch mL) injection LINZESS 145 2018- Yes [facility] s mcg capsule 1-15 ity of 00:00: [place] [address] [facility] losartan 50 2018- Yes [facility] s mg tablet 1-15 ity of 00:00: [place] [address] [facility] pregabalin 2019- Yes [facility] 75 mg 1-15 ity of capsule 00:00: [place] [address] [facility] rOPINIRole 2019- Yes [facility] 1 mg tablet 1-15 ity of 00:00: [place] [address] [facility] atorvastati 2018- Yes [facility] s n 10 mg 1-15 ity of tablet 00:00: [place] [address] [facility] TRULICITY 2019- Yes [facility] 1.5 mg/0.5 1-15 ity of mL PnIj 00:00: [place] [address] [facility] DULoxetine 2019- Yes [facility] 60 mg 1-15 ity of capsule 00:00: [place] [address] [facility] atorvastati 2018- Yes [facility] s n 10 mg 1-15 ity of tablet 00:00: [place] [address] [facility] LEVEMIR 2018- Yes [facility] FLEXTOUCH 1-15 ity of U-100 00:00: [place] INSULN 100 00 Medical unit/mL (3 Branch mL) injection LINZESS 145 2018- Yes [facility] s mcg capsule 1-15 ity of 00:00: [place] [address] [facility] losartan 50 2018- Yes [facility] s mg tablet 1-15 ity of 00:00: [place] [address] [facility] pregabalin 2019- Yes [facility] 75 mg 1-15 ity of capsule 00:00: [place] [address] [facility] rOPINIRole 2019- Yes [facility] 1 mg tablet 1-15 ity of 00:00: [address] [facility] TRULICITY 2019- Yes [facility] 1.5 mg/0.5 1-15 ity of mL PnIj 00:00: [place] [address] [facility] atorvastati 2019- Yes [facility] s n 10 mg 1-15 ity of tablet 00:00: [place] [address] [facility] TRULICITY 2019- Yes [facility] 1.5 mg/0.5 1-15 ity of mL PnIj 00:00: [place] [facility] DULoxetine 2019- Yes [facility] 60 mg 1-15 ity of capsule 00:00: [place] [address] [facility] LEVEMIR 2018- Yes [facility] FLEXTOUCH 1-15 ity of U-100 00:00: [place] INSULN 100 00 Medical unit/mL (3 Branch mL) injection DULoxetine 2019- Yes [facility] 60 mg 1-15 ity of capsule 00:00: [place] [address] [facility] LINZESS 145 2018- Yes [facility] s mcg capsule 1-15 ity of 00:00: [place] [address] [facility] losartan 50 2018- Yes [facility] s mg tablet 1-15 ity of 00:00: [place] [address] [facility] pregabalin 2019- Yes [facility] 75 mg 1-15 ity of capsule 00:00: [place] [address] [facility] rOPINIRole 2018- Yes [facility] 1 mg tablet 1-15 ity of 00:00: [place] [address] [facility] atorvastati 2018- Yes [facility] s n 10 mg 1-15 ity of tablet 00:00: [place] [address] [facility] TRULICITY 2019- Yes [facility] 1.5 mg/0.5 1-15 ity of mL PnIj 00:00: [place] [address] [facility] DULoxetine 2019- Yes [facility] 60 mg 1-15 ity of capsule 00:00: [place] [address] [facility] LEVEMIR 2018- Yes [facility] FLEXTOUCH 1-15 ity of U-100 00:00: [place] INSULN 100 00 Medical unit/mL (3 Branch mL) injection LINZESS 145 2018- Yes [facility] s mcg capsule 1-15 ity of 00:00: [place] [address] [facility] losartan 50 2018- Yes [facility] s mg tablet 1-15 ity of 00:00: [place] [address] [facility] pregabalin 2019- Yes [facility] 75 mg 1-15 ity of capsule 00:00: [place] [address] [facility] rOPINIRole 2019- Yes [facility] 1 mg tablet 1-15 ity of 00:00: [place] [address] [facility] atorvastati 2019- Yes [facility] s n 10 mg 1-15 ity of tablet 00:00: [place] [address] [facility] TRULICITY 2019- Yes [facility] 1.5 mg/0.5 1-15 ity of mL PnIj 00:00: [place] [address] [facility] DULoxetine 2019- Yes [facility] 60 mg 1-15 ity of capsule 00:00: [place] 00 [facility] LEVEMIR 2019- Yes [facility] FLEXTOUCH 1-15 ity of U-100 00:00: [place] INSULN 100 00 Medical unit/mL (3 Branch mL) injection LINZESS 145 2018-05 Yes [facility] s mcg capsule 1-15 ity of 00:00: [place] 00 [facility] losartan 50 2018- Yes [facility] s mg tablet 1-15 ity of 00:00: [place] 00 [facility] LEVEMIR 2018-05 Yes [facility] FLEXTOUCH 1-15 ity of U-100 00:00: [place] INSULN 100 00 Medical unit/mL (3 Branch mL) injection pregabalin 2018- Yes [facility] 75 mg 1-15 ity of capsule 00:00: [place] [address] [facility] rOPINIRole 2018- Yes [facility] 1 mg tablet 1-15 ity of 00:00: [place] [address] [facility] LINZESS 145 2018-05 Yes [facility] s mcg capsule 1-15 ity of 00:00: [place] [address] [facility] atorvastati 2018- Yes [facility] s n 10 mg 1-15 ity of tablet 00:00: [place] [address] [facility] TRULICITY 2018- Yes [facility] 1.5 mg/0.5 1-15 ity of mL PnIj 00:00: [place] [address] [facility] DULoxetine 2018- Yes [facility] 60 mg 1-15 ity of capsule 00:00: [place] [address] [facility] LEVEMIR 2018-05 Yes [facility] FLEXTOUCH 1-15 ity of U-100 00:00: [place] INSULN 100 00 Medical unit/mL (3 Branch mL) injection losartan 50 2018- Yes [facility] s mg tablet 1-15 ity of 00:00: [place] 00 [facility] LINZESS 145 2018- Yes [facility] s mcg capsule 1-15 ity of 00:00: [place] [address] [facility] losartan 50 2018- Yes [facility] s mg tablet 1-15 ity of 00:00: [place] [address] [facility] pregabalin 2019- Yes [facility] 75 mg 1-15 ity of capsule 00:00: [place] [address] [facility] rOPINIRole 2018- Yes [facility] 1 mg tablet 1-15 ity of 00:00: [place] [address] [facility] pregabalin 2019- Yes [facility] 75 mg 1-15 ity of capsule 00:00: [place] 00 [facility] atorvastati 2019- Yes [facility] s n 10 mg 1-15 ity of tablet 00:00: [place] 00 [facility] TRULICITY 2019- Yes [facility] 1.5 mg/0.5 1-15 ity of mL PnIj 00:00: [place] [facility] DULoxetine 2019- Yes [facility] 60 mg 1-15 ity of capsule 00:00: [place] 00 [facility] LEVEMIR 2019- Yes [facility] FLEXTOUCH 1-15 ity of U-100 00:00: [place] INSULN 100 00 Medical unit/mL (3 Branch mL) injection LINZESS 145 2018- Yes [facility] s mcg capsule 1-15 ity of 00:00: [place] 00 [facility] losartan 50 2018- Yes [facility] s mg tablet 1-15 ity of 00:00: [place] [address] [facility] pregabalin 2019- Yes [facility] 75 mg 1-15 ity of capsule 00:00: [place] [address] [facility] rOPINIRole 2019- Yes [facility] 1 mg tablet 1-15 ity of 00:00: [place] [address] [facility] atorvastati 2018- Yes [facility] s n 10 mg 1-15 ity of tablet 00:00: [place] [facility] TRULICITY 2019- Yes [facility] 1.5 mg/0.5 1-15 ity of mL PnIj 00:00: [place] [facility] rOPINIRole 2019- Yes [facility] 1 mg tablet 1-15 ity of 00:00: [place] [facility] DULoxetine 2019- Yes [facility] 60 mg 1-15 ity of capsule 00:00: [place] [facility] LEVEMIR 2019- Yes [facility] FLEXTOUCH 1-15 ity of U-100 00:00: [place] INSULN 100 00 Medical unit/mL (3 Branch mL) injection LINZESS 145 2019- Yes [facility] s mcg capsule 1-15 ity of 00:00: [place] [address] [facility] losartan 50 2019- Yes [facility] s mg tablet 1-15 ity of 00:00: [place] [address] [facility] pregabalin 2019- Yes [facility] 75 mg 1-15 ity of capsule 00:00: [place] [address] [facility] rOPINIRole 2019- Yes [facility] 1 mg tablet 1-15 ity of 00:00: [place] [address] [facility] atorvastati 2019- Yes [facility] s n 10 mg 1-15 ity of tablet 00:00: [place] [address] [facility] TRULICITY 2019- Yes [facility] 1.5 mg/0.5 1-15 ity of mL PnIj 00:00: [place] [address] [facility] DULoxetine 2019- Yes [facility] 60 mg 1-15 ity of capsule 00:00: [place] [address] [facility] LEVEMIR 2018-05 Yes [facility] FLEXTOUCH 1-15 ity of U-100 00:00: [place] INSULN 100 00 Medical unit/mL (3 Branch mL) injection LINZESS 145 2018-05 Yes [facility] s mcg capsule 1-15 ity of 00:00: [place] [address] [facility] losartan 50 2018- Yes [facility] s mg tablet 1-15 ity of 00:00: [place] [address] [facility] pregabalin 2019- Yes [facility] 75 mg 1-15 ity of capsule 00:00: [place] [address] [facility] rOPINIRole 2018- Yes [facility] 1 mg tablet 1-15 ity of 00:00: [place] [address] [facility] atorvastati 2018-05 Yes [facility] s n 10 mg 1-15 ity of tablet 00:00: [place] [address] [facility] TRULICITY 2018- Yes [facility] 1.5 mg/0.5 1-15 ity of mL PnIj 00:00: [place] [address] [facility] DULoxetine 2019- Yes [facility] 60 mg 1-15 ity of capsule 00:00: [place] [address] [facility] LEVEMIR 2018-05 Yes [facility] FLEXTOUCH 1-15 ity of U-100 00:00: [place] INSULN 100 00 Medical unit/mL (3 Branch mL) injection LINZESS 145 2018- Yes [facility] s mcg capsule 1-15 ity of 00:00: [place] [address] [facility] losartan 50 2018- Yes [facility] mg tablet 1-15 ity of 00:00: [place] [address] [facility] pregabalin 2019- Yes [facility] 75 mg 1-15 ity of capsule 00:00: [place] [address] [facility] rOPINIRole 2019- Yes [facility] 1 mg tablet 1-15 ity of 00:00: [place] [address] [facility] atorvastati 2018- Yes [facility] s n 10 mg 1-15 ity of tablet 00:00: [place] [address] [facility] TRULICITY 2019- Yes [facility] 1.5 mg/0.5 1-15 ity of mL PnIj 00:00: [place] [address] [facility] DULoxetine 2019- Yes [facility] 60 mg 1-15 ity of capsule 00:00: [place] [address] [facility] atorvastati 2019- Yes [facility] n 10 mg 1-15 ity of tablet 00:00: [place] [address] [facility] LEVEMIR 2018- Yes [facility] FLEXTOUCH 1-15 ity of U-100 00:00: [place] INSULN 100 00 Medical unit/mL (3 Branch mL) injection LINZESS 145 2018- Yes [facility] s mcg capsule 1-15 ity of 00:00: [place] [address] [facility] losartan 50 2018- Yes [facility] s mg tablet 1-15 ity of 00:00: [place] [address] [facility] pregabalin 2019- Yes [facility] 75 mg 1-15 ity of capsule 00:00: [place] [address] [facility] rOPINIRole 2018- Yes [facility] 1 mg tablet 1-15 ity of 00:00: [place] [address] [facility] TRULICITY 2018- Yes [facility] 1.5 mg/0.5 1-15 ity of mL PnIj 00:00: [place] [address] [facility] atorvastati 2018- Yes [facility] s n 10 mg 1-15 ity of tablet 00:00: [place] [address] [facility] TRULICITY 2019- Yes [facility] 1.5 mg/0.5 1-15 ity of mL PnIj 00:00: [place] [address] [facility] DULoxetine 2019- Yes [facility] 60 mg 1-15 ity of capsule 00:00: [place] [address] [facility] DULoxetine 2019- Yes [facility] 60 mg 1-15 ity of capsule 00:00: [place] [address] [facility] LEVEMIR 2018- Yes [facility] FLEXTOUCH 1-15 ity of U-100 00:00: [place] INSULN 100 00 Medical unit/mL (3 Branch mL) injection LINZESS 145 2018- Yes [facility] mcg capsule 1-15 ity of 00:00: [place] [address] [facility] losartan 50 2018- Yes [facility] s mg tablet 1-15 ity of 00:00: [place] [address] [facility] pregabalin 2019- Yes [facility] 75 mg 1-15 ity of capsule 00:00: [place] [address] [facility] rOPINIRole 2019- Yes [facility] 1 mg tablet 1-15 ity of 00:00: [place] [address] [facility] atorvastati 2018- Yes [facility] s n 10 mg 1-15 ity of tablet 00:00: [place] [address] [facility] TRULICITY 2019- Yes [facility] 1.5 mg/0.5 1-15 ity of mL PnIj 00:00: [place] [facility] DULoxetine 2019- Yes [facility] 60 mg 1-15 ity of capsule 00:00: [place] [address] [facility] LEVEMIR 2018-05 Yes [facility] FLEXTOUCH 1-15 ity of U-100 00:00: [place] INSULN 100 00 Medical unit/mL (3 Branch mL) injection LINZESS 145 2018-05 Yes [facility] mcg capsule 1-15 ity of 00:00: [place] [address] [facility] losartan 50 2018-05 Yes [facility] mg tablet 1-15 ity of 00:00: [place] [address] [facility] pregabalin 2019- Yes [facility] 75 mg 1-15 ity of capsule 00:00: [place] [address] [facility] rOPINIRole 2018- Yes [facility] 1 mg tablet 1-15 ity of 00:00: [place] [address] [facility] atorvastati 2018-05 Yes [facility] s n 10 mg 1-15 ity of tablet 00:00: [place] [facility] TRULICITY 2018- Yes [facility] 1.5 mg/0.5 1-15 ity of mL PnIj 00:00: [place] [address] [facility] DULoxetine 2019- Yes [facility] 60 mg 1-15 ity of capsule 00:00: [place] [address] [facility] LEVEMIR 2018- Yes [facility] FLEXTOUCH 1-15 ity of U-100 00:00: [place] INSULN 100 00 Medical unit/mL (3 Branch mL) injection LEVEMIR 2019- Yes [facility] FLEXTOUCH 1-15 ity of U-100 00:00: [place] INSULN 100 00 Medical unit/mL (3 Branch mL) injection LINZESS 145 2018-05 Yes [facility] s mcg capsule 1-15 ity of 00:00: [place] [address] [facility] losartan 50 2018- Yes [facility] s mg tablet 1-15 ity of 00:00: [place] [address] [facility] pregabalin 2019- Yes [facility] 75 mg 1-15 ity of capsule 00:00: [place] [address] [facility] rOPINIRole 2018- Yes [facility] 1 mg tablet 1-15 ity of 00:00: [place] [address] [facility] LINZESS 145 2018- Yes [facility] s mcg capsule 1-15 ity of 00:00: [place] [address] [facility] atorvastati 2019- Yes [facility] s n 10 mg 1-15 ity of tablet 00:00: [place] 00 [facility] TRULICITY 2019-1 Yes [facility] 1.5 mg/0.5 1-15 ity of mL PnIj 00:00: [place] [facility] DULoxetine 2019- Yes [facility] 60 mg 1-15 ity of capsule 00:00: [place] [address] [facility] LEVEMIR 2019- Yes [facility] FLEXTOUCH 1-15 ity of U-100 00:00: [place] INSULN 100 00 Medical unit/mL (3 Branch mL) injection LINZESS 145 2018- Yes [facility] s mcg capsule 1-15 ity of 00:00: [place] [address] [facility] losartan 50 2018- Yes [facility] s mg tablet 1-15 ity of 00:00: [place] [address] [facility] losartan 50 2018- Yes [facility] mg tablet 1-15 ity of 00:00: [place] [address] [facility] pregabalin 2019- Yes [facility] 75 mg 1-15 ity of capsule 00:00: [place] [address] [facility] rOPINIRole 2019- Yes [facility] 1 mg tablet 1-15 ity of 00:00: [place] [address] [facility] atorvastati 2019- Yes [facility] s n 10 mg 1-15 ity of tablet 00:00: [place] [address] [facility] TRULICITY 2019- Yes [facility] 1.5 mg/0.5 1-15 ity of mL PnIj 00:00: [place] [address] [facility] pregabalin 2019- Yes [facility] 75 mg 1-15 ity of capsule 00:00: [place] [address] [facility] DULoxetine 2019- Yes [facility] 60 mg 1-15 ity of capsule 00:00: [place] [address] [facility] LEVEMIR 2019- Yes [facility] FLEXTOUCH 1-15 ity of U-100 00:00: [place] INSULN 100 00 Medical unit/mL (3 Branch mL) injection LINZESS 145 2019- Yes [facility] mcg capsule 1-15 ity of 00:00: [place] [address] [facility] losartan 50 2018- Yes [facility] mg tablet 1-15 ity of 00:00: [place] [address] [facility] pregabalin 2019- Yes [facility] 75 mg 1-15 ity of capsule 00:00: [place] [address] [facility] rOPINIRole 2019- Yes [facility] 1 mg tablet 1-15 ity of 00:00: [place] [facility] rOPINIRole 2019- Yes [facility] 1 mg tablet 1-15 ity of 00:00: [place] 00 [facility] atorvastati 2019- Yes [facility] n 10 mg 1-15 ity of tablet 00:00: [place] [address] [facility] TRULICITY 2018- Yes [facility] 1.5 mg/0.5 1-15 ity of mL PnIj 00:00: [place] [address] [facility] DULoxetine 2019- Yes [facility] 60 mg 1-15 ity of capsule 00:00: [place] [address] [facility] LEVEMIR 2018- Yes [facility] FLEXTOUCH 1-15 ity of U-100 00:00: [place] INSULN 100 00 Medical unit/mL (3 Branch mL) injection LINZESS 145 2018- Yes [facility] mcg capsule 1-15 ity of 00:00: [place] [address] [facility] losartan 50 2018- Yes [facility] mg tablet 1-15 ity of 00:00: [place] [address] [facility] pregabalin 2019- Yes [facility] 75 mg 1-15 ity of capsule 00:00: [place] [address] [facility] rOPINIRole 2018- Yes [facility] 1 mg tablet 1-15 ity of 00:00: [place] [address] [facility] atorvastati 2018- Yes [facility] s n 10 mg 1-15 ity of tablet 00:00: [place] [address] [facility] TRULICITY 2018- Yes [facility] 1.5 mg/0.5 1-15 ity of mL PnIj 00:00: [place] [address] [facility] DULoxetine 2018- Yes [facility] 60 mg 1-15 ity of capsule 00:00: [place] [address] [facility] LEVEMIR 2019- Yes [facility] FLEXTOUCH 1-15 ity of U-100 00:00: [place] INSULN 100 00 Medical unit/mL (3 Branch mL) injection LINZESS 145 2018- Yes [facility] mcg capsule 1-15 ity of 00:00: [place] [address] [facility] losartan 50 2018- Yes [facility] mg tablet 1-15 ity of 00:00: [place] [address] [facility] rOPINIRole 2019- Yes [facility] 1 mg tablet 1-15 ity of 00:00: [place] [address] [facility] atorvastati 2019- Yes [facility] s n 10 mg 1-15 ity of tablet 00:00: [place] [address] [facility] TRULICITY 2018- Yes [facility] 1.5 mg/0.5 1-15 ity of mL PnIj 00:00: [place] [facility] DULoxetine 2019- Yes [facility] 60 mg 1-15 ity of capsule 00:00: [facility] atorvastati 2019- Yes [facility] s n 10 mg 1-15 ity of tablet 00:00: [place] [address] [facility] TRULICITY 2018- Yes [facility] 1.5 mg/0.5 1-15 ity of mL PnIj 00:00: [place] [address] [facility] DULoxetine 2019- Yes [facility] 60 mg 1-15 ity of capsule 00:00: [place] [address] [facility] LEVEMIR 2018-05 Yes [facility] FLEXTOUCH 1-15 ity of U-100 00:00: [place] INSULN 100 00 Medical unit/mL (3 Branch mL) injection LINZESS 145 2018-05 Yes [facility] mcg capsule 1-15 ity of 00:00: [place] [address] [facility] losartan 50 2018- Yes [facility] mg tablet 1-15 ity of 00:00: [place] [address] [facility] rOPINIRole 2019- Yes [facility] 1 mg tablet 1-15 ity of 00:00: [place] [address] [facility] LEVEMIR 2018-05 Yes [facility] FLEXTOUCH 1-15 ity of U-100 00:00: [place] INSULN 100 00 Medical unit/mL (3 Branch mL) injection atorvastati 2019- Yes [facility] s n 10 mg 1-15 ity of tablet 00:00: [place] [address] [facility] TRULICITY 2018- Yes [facility] 1.5 mg/0.5 1-15 ity of mL PnIj 00:00: [place] [address] [facility] DULoxetine 2019- Yes [facility] 60 mg 1-15 ity of capsule 00:00: [place] [address] [facility] LEVEMIR 2018- Yes [facility] FLEXTOUCH 1-15 ity of U-100 00:00: [place] INSULN 100 00 Medical unit/mL (3 Branch mL) injection LINZESS 145 2018- Yes [facility] mcg capsule 1-15 ity of 00:00: [place] [address] [facility] LINZESS 145 2018- Yes [facility] mcg capsule 1-15 ity of 00:00: [place] [address] [facility] losartan 50 2018- Yes [facility] mg tablet 1-15 ity of 00:00: [place] [address] [facility] rOPINIRole 2019- Yes [facility] 1 mg tablet 1-15 ity of 00:00: [place] [address] [facility] losartan 50 2018- Yes [facility] mg tablet 1-15 ity of 00:00: [place] [address] [facility] pregabalin 2019- Yes [facility] 75 mg 1-15 ity of capsule 00:00: [place] [address] [facility] atorvastati 2018-05 Yes [facility] n 10 mg 1-15 ity of tablet 00:00: [place] [address] [facility] TRULICITY 2019- Yes [facility] 1.5 mg/0.5 1-15 ity of mL PnIj 00:00: [place] [address] [facility] DULoxetine 2019- Yes [facility] 60 mg 1-15 ity of capsule 00:00: [place] [address] [facility] LEVEMIR 2019- Yes [facility] FLEXTOUCH 1-15 ity of U-100 00:00: [place] INSULN 100 00 Medical unit/mL (3 Branch mL) injection LINZESS 145 2018-05 Yes [facility] mcg capsule 1-15 ity of 00:00: [place] [address] [facility] losartan 50 2018- Yes [facility] mg tablet 1-15 ity of 00:00: [place] [address] [facility] rOPINIRole 2019- Yes [facility] 1 mg tablet 1-15 ity of 00:00: [place] [address] [facility] rOPINIRole 2019- Yes [facility] 1 mg tablet 1-15 ity of 00:00: [address] Branch atorvastati 2018- Yes Un[facility] s n 10 mg 1-15 ity of tablet 00:00: [place] [address] [facility] TRULICITY 2018- Yes [facility] 1.5 mg/0.5 1-15 ity of mL PnIj 00:00: [place] [address] [facility] DULoxetine 2019- Yes [facility] 60 mg 1-15 ity of capsule 00:00: [place] [address] [facility] LEVEMIR 2019- Yes [facility] FLEXTOUCH 1-15 ity of U-100 00:00: [place] INSULN 100 00 Medical unit/mL (3 Branch mL) injection LINZESS 145 2018- Yes [facility] mcg capsule 1-15 ity of 00:00: [place] [address] [facility] losartan 50 2018- Yes [facility] mg tablet 1-15 ity of 00:00: [place] [address] [facility] rOPINIRole 2019- Yes [facility] 1 mg tablet 1-15 ity of 00:00: [place] [address] [facility] atorvastati 2018- Yes [facility] s n 10 mg 1-15 ity of tablet 00:00: [place] [facility] TRULICITY 2019- Yes [facility] 1.5 mg/0.5 1-15 ity of mL PnIj 00:00: [place] [address] [facility] DULoxetine 2019- Yes [facility] 60 mg 1-15 ity of capsule 00:00: [place] [address] [facility] LEVEMIR 2019- Yes [facility] FLEXTOUCH 1-15 ity of U-100 00:00: [place] INSULN 100 00 Medical unit/mL (3 Branch mL) injection LINZESS 145 2018- Yes [facility] mcg capsule 1-15 ity of 00:00: [place] [address] [facility] losartan 50 2018- Yes [facility] mg tablet 1-15 ity of 00:00: [place] [address] [facility] rOPINIRole 2019- Yes [facility] 1 mg tablet 1-15 ity of 00:00: [place] [address] [facility] atorvastati 2018-05 Yes [facility] s n 10 mg 1-15 ity of tablet 00:00: [place] [address] [facility] atorvastati 2019- Yes [facility] n 10 mg 1-15 ity of tablet 00:00: [place] [address] [facility] TRULICITY 2019- Yes [facility] 1.5 mg/0.5 1-15 ity of mL PnIj 00:00: [place] [address] [facility] DULoxetine 2019- Yes [facility] 60 mg 1-15 ity of capsule 00:00: [place] [address] [facility] LEVEMIR 2019- Yes [facility] FLEXTOUCH 1-15 ity of U-100 00:00: [place] INSULN 100 00 Medical unit/mL (3 Branch mL) injection LINZESS 145 2019- Yes [facility] mcg capsule 1-15 ity of 00:00: [place] [address] [facility] losartan 50 2018- Yes [facility] mg tablet 1-15 ity of 00:00: [place] [address] [facility] rOPINIRole 2019- Yes [facility] 1 mg tablet 1-15 ity of 00:00: [place] [address] [facility] TRULICITY 2019- Yes [facility] 1.5 mg/0.5 1-15 ity of mL PnIj 00:00: [place] [address] [facility] DULoxetine 2019- Yes [facility] 60 mg 1-15 ity of capsule 00:00: [place] [address] [facility] atorvastati 2019- Yes [facility] n 10 mg 1-15 ity of tablet 00:00: [place] [facility] TRULICITY 2019 Yes [facility] 1.5 mg/0.5 1-15 ity of mL PnIj 00:00: [facility] DULoxetine 2019- Yes [facility] 60 mg 1-15 ity of capsule 00:00: [facility] LEVEMIR 2018-05 Yes [facility] FLEXTOUCH 1-15 ity of U-100 00:00: [place] INSULN 100 00 Medical unit/mL (3 Branch mL) injection LINZESS 145 2018-05 Yes [facility] mcg capsule 1-15 ity of 00:00: [place] [facility] losartan 50 2018-05 Yes [facility] s mg tablet 1-15 ity of 00:00: [place] [address] [facility] rOPINIRole 2019- Yes [facility] 1 mg tablet 1-15 ity of 00:00: [place] [address] [facility] atorvastati 2018-05 Yes [facility] n 10 mg 1-15 ity of tablet 00:00: [place] [address] [facility] TRULICITY 2018-05 Yes [facility] 1.5 mg/0.5 1-15 ity of mL PnIj 00:00: [place] [address] [facility] DULoxetine 2018- Yes [facility] 60 mg 1-15 ity of capsule 00:00: [place] [address] [facility] LEVEMIR 2018-05 Yes [facility] FLEXTOUCH 1-15 ity of U-100 00:00: [place] INSULN 100 00 Medical unit/mL (3 Branch mL) injection LINZESS 145 2018-05 Yes [facility] mcg capsule 1-15 ity of 00:00: [place] [address] [facility] losartan 50 2018- Yes [facility] mg tablet 1-15 ity of 00:00: [place] [address] [facility] LEVEMIR 2018-05 Yes [facility] FLEXTOUCH 1-15 ity of U-100 00:00: [place] INSULN 100 00 Medical unit/mL (3 Branch mL) injection rOPINIRole 2019- Yes [facility] 1 mg tablet 1-15 ity of 00:00: [place] [address] [facility] LINZESS 145 2018- Yes [facility] mcg capsule 1-15 ity of 00:00: [place] [address] [facility] atorvastati 2018-05 Yes [facility] s n 10 mg 1-15 ity of tablet 00:00: [place] [address] [facility] TRULICITY 2018- Yes [facility] 1.5 mg/0.5 1-15 ity of mL PnIj 00:00: [place] [address] [facility] DULoxetine 2019- Yes [facility] 60 mg 1-15 ity of capsule 00:00: [place] [address] [facility] losartan 50 2018- Yes [facility] mg tablet 1-15 ity of 00:00: [place] [address] [facility] LEVEMIR 2018-05 Yes [facility] FLEXTOUCH 1-15 ity of U-100 00:00: [place] INSULN 100 00 Medical unit/mL (3 Branch mL) injection LINZESS 145 2018- Yes [facility] mcg capsule 1-15 ity of 00:00: [place] [address] [facility] losartan 50 2018-05 Yes [facility] mg tablet 1-15 ity of 00:00: [place] [address] [facility] rOPINIRole 2019- Yes [facility] 1 mg tablet 1-15 ity of 00:00: [place] [address] [facility] pregabalin 2019- Yes [facility] 75 mg 1-15 ity of capsule 00:00: [place] [address] [facility] atorvastati 2018- Yes [facility] s n 10 mg 1-15 ity of tablet 00:00: [place] [address] [facility] TRULICITY 2019- Yes [facility] 1.5 mg/0.5 1-15 ity of mL PnIj 00:00: [place] [address] [facility] DULoxetine 2019- Yes [facility] 60 mg 1-15 ity of capsule 00:00: [place] [address] [facility] rOPINIRole 2019- Yes [facility] 1 mg tablet 1-15 ity of 00:00: [place] [address] [facility] LEVEMIR 2018- Yes [facility] FLEXTOUCH 1-15 ity of U-100 00:00: [place] INSULN 100 00 Medical unit/mL (3 Branch mL) injection LINZESS 145 2018- Yes [facility] mcg capsule 1-15 ity of 00:00: [place] [address] [facility] losartan 50 2018- Yes [facility] mg tablet 1-15 ity of 00:00: [place] [address] [facility] rOPINIRole 2019- Yes [facility] 1 mg tablet 1-15 ity of 00:00: [place] [address] [facility] atorvastati 2019- Yes [facility] s n 10 mg 1-15 ity of tablet 00:00: [place] [address] [facility] TRULICITY 2019- Yes [facility] 1.5 mg/0.5 1-15 ity of mL PnIj 00:00: [place] [address] [facility] DULoxetine 2019-1 Yes [facility] 60 mg 1-15 ity of capsule 00:00: [place] 00 [facility] LEVEMIR 2019- Yes [facility] FLEXTOUCH 1-15 ity of U-100 00:00: [place] INSULN 100 00 Medical unit/mL (3 Branch mL) injection LINZESS 145 2018- Yes [facility] mcg capsule 1-15 ity of 00:00: [place] [address] [facility] losartan 50 2018- Yes [facility] mg tablet 1-15 ity of 00:00: [place] [address] [facility] rOPINIRole 2019- Yes [facility] 1 mg tablet 1-15 ity of 00:00: [place] [address] [facility] atorvastati 2018- Yes [facility] s n 10 mg 1-15 ity of tablet 00:00: [address] Branch TRULICITY 2019- Yes [facility] 1.5 mg/0.5 1-15 ity of mL PnIj 00:00: [address] Branch DULoxetine 2019- Yes [facility] 60 mg 1-15 ity of capsule 00:00: [place] [address] [facility] LEVEMIR 2018- Yes [facility] FLEXTOUCH 1-15 ity of U-100 00:00: [place] INSULN 100 00 Medical unit/mL (3 Branch mL) injection LINZESS 145 2018- Yes Un[facility] s mcg capsule 1-15 ity of 00:00: [address] Branch losartan 50 2018- Yes Un[facility] s mg tablet 1-15 ity of 00:00: [address] Branch rOPINIRole 2018- Yes [facility] 1 mg tablet 1-15 ity of 00:00: [address] Branch atorvastati 2019- Yes Univer s n 10 mg 1-15 ity of tablet 00:00: [address] Branch TRULICITY 2019- Yes [facility] 1.5 mg/0.5 1-15 ity of mL PnIj 00:00: [place] [address] [facility] atorvastati 2019- Yes Un[facility] s n 10 mg 1-15 ity of tablet 00:00: [address] [facility] TRULICITY 2019- Yes [facility] 1.5 mg/0.5 1-15 ity of mL PnIj 00:00: [address] Branch DULoxetine 2019- Yes [facility] 60 mg 1-15 ity of capsule 00:00: [address] [facility] DULoxetine 2019- Yes [facility] 60 mg 1-15 ity of capsule 00:00: [place] 00 [facility] LEVEMIR 2019 Yes [facility] FLEXTOUCH 1-15 ity of U-100 00:00: [place] INSULN 100 00 Medical unit/mL (3 Branch mL) injection LINZESS 145 2018- Yes Univer s mcg capsule 1-15 ity of 00:00: [place] 00 [facility] losartan 50 2018- Yes Un[facility] s mg tablet 1-15 ity of 00:00: [place] [address] [facility] rOPINIRole 2019- Yes [facility] 1 mg tablet 1-15 ity of 00:00: [place] [address] [facility] LEVEMIR 2018- Yes [facility] FLEXTOUCH 1-15 ity of U-100 00:00: [place] INSULN 100 00 Medical unit/mL (3 Branch mL) injection LINZESS 145 2018-05 Yes Univer s mcg capsule 1-15 ity of 00:00: [place] [address] [facility] losartan 50 2018- Yes Un[facility] s mg tablet 1-15 ity of 00:00: [place] [address] [facility] pregabalin 2019- Yes [facility] 75 mg 1-15 ity of capsule 00:00: [place] [address] [facility] rOPINIRole 2018- Yes [facility] 1 mg tablet 1-15 ity of 00:00: [place] [address] [facility] atorvastati 2019- Yes Un[facility] s n 10 mg 1-15 ity of tablet 00:00: [place] [address] [facility] TRULICITY 2018- Yes [facility] 1.5 mg/0.5 1-15 ity of mL PnIj 00:00: [place] [address] [facility] DULoxetine 2019- Yes [facility] 60 mg 1-15 ity of capsule 00:00: [place] [address] [facility] LEVEMIR 2019- Yes [facility] FLEXTOUCH 1-15 ity of U-100 00:00: [place] INSULN 100 00 Medical unit/mL (3 Branch mL) injection LINZESS 145 2018- Yes Univer s mcg capsule 1-15 ity of 00:00: [place] [address] [facility] losartan 50 2018- Yes Univer s mg tablet 1-15 ity of 00:00: [place] [address] [facility] rOPINIRole 2019- Yes [facility] 1 mg tablet 1-15 ity of 00:00: [place] [address] [facility] atorvastati 2019- Yes Univer s n 10 mg 1-15 ity of tablet 00:00: [place] [address] [facility] TRULICITY 2019- Yes [facility] 1.5 mg/0.5 1-15 ity of mL PnIj 00:00: [place] 00 [facility] DULoxetine 2019- Yes [facility] 60 mg 1-15 ity of capsule 00:00: [place] [facility] LEVEMIR 2018-05 Yes [facility] FLEXTOUCH 1-15 ity of U-100 00:00: [place] INSULN 100 00 Medical unit/mL (3 Branch mL) injection LINZESS 145 2018-05 Yes Univer s mcg capsule 1-15 ity of 00:00: [place] 00 [facility] atorvastati 2018- Yes Univer s n 10 mg 1-15 ity of tablet 00:00: [place] [address] [facility] losartan 50 2018- Yes Univer s mg tablet 1-15 ity of 00:00: [place] [address] [facility] rOPINIRole 2018- Yes [facility] 1 mg tablet 1-15 ity of 00:00: [place] [address] [facility] TRULICITY 2018- Yes [facility] 1.5 mg/0.5 1-15 ity of mL PnIj 00:00: [place] [facility] DULoxetine 2018- Yes [facility] 60 mg 1-15 ity of capsule 00:00: [place] 00 [facility] atorvastati 2018-05 Yes Univer s n 10 mg 1-15 ity of tablet 00:00: [place] [address] [facility] LEVEMIR 2018-05 Yes [facility] FLEXTOUCH 1-15 ity of U-100 00:00: [place] INSULN 100 00 Medical unit/mL (3 Branch mL) injection LINZESS 145 2018-05 Yes Univer s mcg capsule 1-15 ity of 00:00: [address] Branch losartan 50 2018- Yes Univer s mg tablet 1-15 ity of 00:00: [place] 00 [facility] pregabalin 2019- 2020- No Univer s 75 mg 1-15 11-29 ity of capsule 00:00: 00:00 [place] 00 :00 [facility] Branch orphenadrin 2018-05 Yes Univer s e 100 mg SR 0-30 ity of tablet 00:00: [place] [facility] orphenadrin 2018-05 Yes Univer s e 100 mg SR 0-30 ity of tablet 00:00: [place] [address] [facility] orphenadrin 2018-05 Yes Univer s e 100 mg SR 0-30 ity of tablet 00:00: [place] [address] [facility] orphenadrin 2019- Yes Univer s e 100 mg SR 0-30 ity of tablet 00:00: [place] [facility] orphenadrin 2019- Yes Univer s e 100 mg SR 0-30 ity of tablet 00:00: [place] [facility] orphenadrin 2019 Yes Univer s e 100 mg SR 0-30 ity of tablet 00:00: [place] [facility] orphenadrin 2019- Yes Univer s e 100 mg SR 0-30 ity of tablet 00:00: [place] [facility] Branch orphenadrin 2019- Yes Univer s e 100 mg SR 0-30 ity of tablet 00:00: [place] [facility] orphenadrin 2019- Yes Univer s e 100 mg SR 0-30 ity of tablet 00:00: [place] [facility] Branch orphenadrin 2019- Yes Univer s e 100 mg SR 0-30 ity of tablet 00:00: [place] [facility] orphenadrin 2019- Yes Univer s e 100 mg SR 0-30 ity of tablet 00:00: [place] [facility] Branch orphenadrin 2019- Yes Univer s e 100 mg SR 0-30 ity of tablet 00:00: [place] [facility] orphenadrin 2019- Yes Univer s e 100 mg SR 0-30 ity of tablet 00:00: [place] [facility] orphenadrin 2019- Yes Univer s e 100 mg SR 0-30 ity of tablet 00:00: [place] [facility] Branch orphenadrin 2019- Yes Univer s e 100 mg SR 0-30 ity of tablet 00:00: [place] [facility] orphenadrin 2019- Yes Univer s e 100 mg SR 0-30 ity of tablet 00:00: [place] [facility] orphenadrin 2019- Yes Univer s e 100 mg SR 0-30 ity of tablet 00:00: [place] [facility] orphenadrin 2019- Yes Univer s e 100 mg SR 0-30 ity of tablet 00:00: [place] [facility] Branch orphenadrin 2019- Yes Univer s e 100 mg SR 0-30 ity of tablet 00:00: [place] [facility] orphenadrin 2019- Yes Univer s e 100 mg SR 0-30 ity of tablet 00:00: [place] [facility] orphenadrin 2019 Yes Univer s e 100 mg SR 0-30 ity of tablet 00:00: [place] [facility] orphenadrin 2019- Yes Univer s e 100 mg SR 0-30 ity of tablet 00:00: [place] [facility] orphenadrin 2019 Yes Univer s e 100 mg SR 0-30 ity of tablet 00:00: [place] [facility] orphenadrin 2019- Yes Univer s e 100 mg SR 0-30 ity of tablet 00:00: [place] [facility] orphenadrin 2019 Yes Univer s e 100 mg SR 0-30 ity of tablet 00:00: [place] [facility] orphenadrin 2019- Yes Univer s e 100 mg SR 0-30 ity of tablet 00:00: [place] [facility] orphenadrin 2019- Yes Univer s e 100 mg SR 0-30 ity of tablet 00:00: [place] [facility] orphenadrin 2019- Yes Univer s e 100 mg SR 0-30 ity of tablet 00:00: [place] [facility] orphenadrin 2019- Yes Univer s e 100 mg SR 0-30 ity of tablet 00:00: [place] [facility] orphenadrin 2019- Yes Univer s e 100 mg SR 0-30 ity of tablet 00:00: [place] [facility] orphenadrin 2019- Yes Univer s e 100 mg SR 0-30 ity of tablet 00:00: [place] [facility] orphenadrin 2019- Yes Univer s e 100 mg SR 0-30 ity of tablet 00:00: [place] [facility] orphenadrin 2019- Yes Univer s e 100 mg SR 0-30 ity of tablet 00:00: [place] [facility] orphenadrin 2019- Yes Univer s e 100 mg SR 0-30 ity of tablet 00:00: [place] [facility] orphenadrin 2019- Yes Univer s e 100 mg SR 0-30 ity of tablet 00:00: [place] [facility] orphenadrin 2019- Yes Univer s e 100 mg SR 0-30 ity of tablet 00:00: [place] [facility] orphenadrin 2019-1 Yes Univer s e 100 mg SR 0-30 ity of tablet 00:00: [place] [facility] Branch orphenadrin 2019- Yes Univer s e 100 mg SR 0-30 ity of tablet 00:00: [place] [facility] Branch orphenadrin 2019- Yes Univer s e 100 mg SR 0-30 ity of tablet 00:00: [place] [facility] orphenadrin 2019- Yes Univer s e 100 mg SR 0-30 ity of tablet 00:00: [place] [facility] Branch orphenadrin 2019- Yes Univer s e 100 mg SR 0-30 ity of tablet 00:00: [place] [facility] orphenadrin 2019- Yes Univer s e 100 mg SR 0-30 ity of tablet 00:00: [place] [facility] orphenadrin 2019- Yes Univer s e 100 mg SR 0-30 ity of tablet 00:00: [place] [facility] orphenadrin 2019- Yes Univer s e 100 mg SR 0-30 ity of tablet 00:00: [place] [facility] Branch orphenadrin 2019- Yes Univer s e 100 mg SR 0-30 ity of tablet 00:00: [place] [facility] orphenadrin 2019- Yes Univer s e 100 mg SR 0-30 ity of tablet 00:00: [place] [facility] orphenadrin 2019- Yes Univer s e 100 mg SR 0-30 ity of tablet 00:00: [place] [facility] orphenadrin 2019- Yes Univer s e 100 mg SR 0-30 ity of tablet 00:00: [place] [facility] Branch orphenadrin 2019- Yes Univer s e 100 mg SR 0-30 ity of tablet 00:00: [place] [facility] Branch orphenadrin 2019- Yes Univer s e 100 mg SR 0-30 ity of tablet 00:00: [place] [facility] orphenadrin 2019- Yes Univer s e 100 mg SR 0-30 ity of tablet 00:00: [place] [facility] orphenadrin 2019- Yes Univer s e 100 mg SR 0-30 ity of tablet 00:00: [place] [facility] Branch orphenadrin 2019- Yes Univer s e 100 mg SR 0-30 ity of tablet 00:00: [place] 00 [facility] orphenadrin 2019- Yes Univer s e 100 mg SR 0-30 ity of tablet 00:00: [place] 00 [facility] orphenadrin 2018-05 Yes Univer s e 100 mg SR 0-30 ity of tablet 00:00: [place] 00 [facility] HYDROcodone 2018-05 Yes Univer s -acetaminop 0-01 ity of hen 7.5-325 00:00: [place] mg per 00 Medical tablet Branch HYDROcodone 2019- Yes Univer s -acetaminop 0-01 ity of hen 7.5-325 00:00: [place] mg per 00 Medical tablet Branch HYDROcodone 2018-05 Yes Univer s -acetaminop 0-01 ity of hen 7.5-325 00:00: [place] mg per 00 Medical tablet Branch HYDROcodone 2018- Yes Univer s -acetaminop 0-01 ity of hen 7.5-325 00:00: [place] mg per 00 Medical tablet Branch HYDROcodone 2019- Yes Univer s -acetaminop 0-01 ity of hen 7.5-325 00:00: [place] mg per 00 Medical tablet Branch HYDROcodone 2018- Yes Univer s -acetaminop 0-01 ity of hen 7.5-325 00:00: [place] mg per 00 Medical tablet Branch HYDROcodone 2019- Yes Univer s -acetaminop 0-01 ity of hen 7.5-325 00:00: [place] mg per 00 Medical tablet Branch HYDROcodone 2019- Yes Univer s -acetaminop 0-01 ity of hen 7.5-325 00:00: [place] mg per 00 Medical tablet Branch HYDROcodone 2019- Yes Univer s -acetaminop 0-01 ity of hen 7.5-325 00:00: [place] mg per 00 Medical tablet Branch HYDROcodone 2019- Yes Univer s -acetaminop 0-01 ity of hen 7.5-325 00:00: [place] mg per 00 Medical tablet Branch HYDROcodone 2019- Yes Univer s -acetaminop 0-01 ity of hen 7.5-325 00:00: [place] mg per 00 Medical tablet Branch HYDROcodone 2019- Yes Univer s -acetaminop 0-01 ity of hen 7.5-325 00:00: [place] mg per 00 Medical tablet Branch HYDROcodone 2019-1 Yes Univer s -acetaminop 0-01 ity of hen 7.5-325 00:00: [place] mg per 00 Medical tablet Branch HYDROcodone 2019- Yes Univer s -acetaminop 0-01 ity of hen 7.5-325 00:00: [place] mg per 00 Medical tablet Branch HYDROcodone 2018-05 Yes Univer s -acetaminop 0-01 ity of hen 7.5-325 00:00: [place] mg per 00 Medical tablet Branch HYDROcodone 2018- Yes Univer s -acetaminop 0-01 ity of hen 7.5-325 00:00: [place] mg per 00 Medical tablet Branch HYDROcodone 2018-05 Yes Univer s -acetaminop 0-01 ity of hen 7.5-325 00:00: [place] mg per 00 Medical tablet Branch HYDROcodone 2018-05 Yes Univer s -acetaminop 0-01 ity of hen 7.5-325 00:00: [place] mg per 00 Medical tablet Branch HYDROcodone 2019- Yes Univer s -acetaminop 0-01 ity of hen 7.5-325 00:00: [place] mg per 00 Medical tablet Branch HYDROcodone 2018- Yes Univer s -acetaminop 0-01 ity of hen 7.5-325 00:00: [place] mg per 00 Medical tablet Branch HYDROcodone 2019- Yes Univer s -acetaminop 0-01 ity of hen 7.5-325 00:00: [place] mg per 00 Medical tablet Branch HYDROcodone 2018- Yes Univer s -acetaminop 0-01 ity of hen 7.5-325 00:00: [place] mg per 00 Medical tablet Branch HYDROcodone 2019- Yes Univer s -acetaminop 0-01 ity of hen 7.5-325 00:00: [place] mg per 00 Medical tablet Branch HYDROcodone 2019- Yes Univer s -acetaminop 0-01 ity of hen 7.5-325 00:00: [place] mg per 00 Medical tablet Branch HYDROcodone 2019- Yes Univer s -acetaminop 0-01 ity of hen 7.5-325 00:00: [place] mg per 00 Medical tablet Branch HYDROcodone 2019- Yes Univer s -acetaminop 0-01 ity of hen 7.5-325 00:00: [place] mg per 00 Medical tablet Branch HYDROcodone 2019- Yes Univer s -acetaminop 0-01 ity of hen 7.5-325 00:00: [place] mg per 00 Medical tablet Branch HYDROcodone 2018-05 Yes Univer s -acetaminop 0-01 ity of hen 7.5-325 00:00: [place] mg per 00 Medical tablet Branch HYDROcodone 2018-05 Yes Univer s -acetaminop 0-01 ity of hen 7.5-325 00:00: [place] mg per 00 Medical tablet Branch HYDROcodone 2018-05 Yes Univer s -acetaminop 0-01 ity of hen 7.5-325 00:00: [place] mg per 00 Medical tablet Branch HYDROcodone 2018-05 Yes Univer s -acetaminop 0-01 ity of hen 7.5-325 00:00: [place] mg per 00 Medical tablet Branch HYDROcodone 2018-05 Yes Univer s -acetaminop 0-01 ity of hen 7.5-325 00:00: [place] mg per 00 Medical tablet Branch HYDROcodone 2018-05 Yes Univer s -acetaminop 0-01 ity of hen 7.5-325 00:00: [place] mg per 00 Medical tablet Branch HYDROcodone 2018-05 Yes Univer s -acetaminop 0-01 ity of hen 7.5-325 00:00: [place] mg per 00 Medical tablet Branch HYDROcodone 2018- Yes Univer s -acetaminop 0-01 ity of hen 7.5-325 00:00: [place] mg per 00 Medical tablet Branch HYDROcodone 2018- Yes Univer s -acetaminop 0-01 ity of hen 7.5-325 00:00: [place] mg per 00 Medical tablet Branch HYDROcodone 2019- Yes Univer s -acetaminop 0-01 ity of hen 7.5-325 00:00: [place] mg per 00 Medical tablet Branch HYDROcodone 2019- Yes Univer s -acetaminop 0-01 ity of hen 7.5-325 00:00: [place] mg per 00 Medical tablet Branch HYDROcodone 2019- Yes Univer s -acetaminop 0-01 ity of hen 7.5-325 00:00: [place] mg per 00 Medical tablet Branch HYDROcodone 2019- Yes Univer s -acetaminop 0-01 ity of hen 7.5-325 00:00: [place] mg per 00 Medical tablet Branch HYDROcodone 2018- Yes Univer s -acetaminop 0-01 ity of hen 7.5-325 00:00: [place] mg per 00 Medical tablet Branch HYDROcodone 2019- Yes Univer s -acetaminop 0-01 ity of hen 7.5-325 00:00: [place] mg per 00 Medical tablet Branch HYDROcodone 2019- Yes Univer s -acetaminop 0-01 ity of hen 7.5-325 00:00: [place] mg per 00 Medical tablet Branch HYDROcodone 2019- Yes Univer s -acetaminop 0-01 ity of hen 7.5-325 00:00: [place] mg per 00 Medical tablet Branch HYDROcodone 2018- Yes Univer s -acetaminop 0-01 ity of hen 7.5-325 00:00: [place] mg per 00 Medical tablet Branch HYDROcodone 2018- Yes Univer s -acetaminop 0-01 ity of hen 7.5-325 00:00: [place] mg per 00 Medical tablet Branch HYDROcodone 2019- Yes Univer s -acetaminop 0-01 ity of hen 7.5-325 00:00: [place] mg per 00 Medical tablet Branch HYDROcodone 2019- Yes Univer s -acetaminop 0-01 ity of hen 7.5-325 00:00: [place] mg per 00 Medical tablet Branch HYDROcodone 2019- Yes Univer s -acetaminop 0-01 ity of hen 7.5-325 00:00: [place] mg per 00 Medical tablet Branch HYDROcodone 2019- Yes Univer s -acetaminop 0-01 ity of hen 7.5-325 00:00: [place] mg per 00 Medical tablet Branch HYDROcodone 2019- Yes Univer s -acetaminop 0-01 ity of hen 7.5-325 00:00: [place] mg per 00 Medical tablet Branch HYDROcodone 2019- Yes Univer s -acetaminop 0-01 ity of hen 7.5-325 00:00: [place] mg per 00 Medical tablet Branch HYDROcodone 2019- Yes Univer s -acetaminop 0-01 ity of hen 7.5-325 00:00: [place] mg per 00 Medical tablet Branch HYDROcodone 2019- Yes Univer s -acetaminop 0-01 ity of hen 7.5-325 00:00: [place] mg per 00 Medical tablet Branch HYDROcodone 2018- Yes Bell s -acetaminop 0-01 ity of hen 7.5-325 00:00: [place] mg per 00 Medical tablet Branch Immunizations Ordered Filled Immunization Date Status Comments [facility] e Immunization Name Name Influenza Virus 2019-06-14 Completed Universit y of Vaccine Quad .5 mL 00:00:00 [facility] IM 6+ MO Branch HEPLISAV HEP B, 2019-06-14 Completed Universit y of ADULT 2 DOSE, IM 00:00:00 [facility] dical Branch Influenza Virus 2019-06-14 Completed Universit y of Vaccine [place] .5 mL 00:00:00 [facility] IM 6+ MO Branch HEPLISAV HEP B, 2019-06-14 Completed Universit y of ADULT 2 DOSE, IM 00:00:00 [facility] dicma Branch Influenza Virus 2019-06-14 Completed Universit y of Vaccine [place] .5 mL 00:00:00 [facility] IM 6+ MO Branch HEPLISAV HEP B, 2019-06-14 Completed Universit y of ADULT 2 DOSE, IM 00:00:00 [facility] dicma Branch Influenza Virus 2019-06-14 Completed Universit y of Vaccine Quad .5 mL 00:00:00 [facility] IM 6+ MO Branch HEPLISAV HEP B, 2019-06-14 Completed Universit y of ADULT 2 DOSE, IM 00:00:00 [facility] [place] [facility] Vital Signs Vital Name Observation Time Observation Value Comments Source Systolic blood 2020-05-30 19:19:00 139 mm[Hg] Univer sity of pressure [facility] Diastolic blood 2020-05-30 19:19:00 87 mm[Hg] Unive rsity of pressure [facility] Heart rate 2020-05-30 19:17:00 103 /min [facility] Body height 2020-05-30 19:17:00 154.9 cm [facility] Body weight 2020-05-30 19:17:00 65.318 kg [facility] BMI 2020-05-30 19:17:00 27.21 kg/m2 [facility] Systolic blood 2020-05-07 15:32:00 133 mm[Hg] Univer sity of pressure [facility] Diastolic blood 2020-05-07 15:32:00 85 mm[Hg] Unive rsity of pressure [facility] Heart rate 2020-05-07 15:29:00 102 /min Universi ty of [facility] Body height 2020-05-07 15:29:00 154.9 cm Universi ty [facility] Body weight 2020-05-07 15:29:00 68.04 kg Universi ty of [facility] BMI 2020-05-07 15:29:00 28.34 kg/m2 [facility]i ty [facility] Systolic blood 2020-04-14 21:42:00 147 mm[Hg] Univer sity of pressure [facility] Diastolic blood 2020-04-14 21:42:00 99 mm[Hg] Unive rsity of pressure [facility] Heart rate 2020-04-14 21:42:00 99 /min Universi ty of [facility] Respiratory rate 2020-04-14 21:42:00 24 /min Univ ersity of [facility] Oxygen saturation in 2020-04-14 21:42:00 100 /min University of Arterial blood by [place] [facility] shabnam Pulse oximetry Branch Body temperature 2020-04-14 19:28:00 36.56 Vangie Univ ersity of [facility] Systolic blood 2020-04-14 18:59:00 128 mm[Hg] Univer sity of pressure [facility] Diastolic blood 2020-04-14 18:59:00 84 mm[Hg] Unive rsity of pressure [facility] Heart rate 2020-04-14 18:59:00 102 /min Universi ty of [facility] Body temperature 2020-04-14 18:56:00 36.44 Vangie Univ ersity of [facility] Respiratory rate 2020-04-14 18:56:00 18 /min Univ ersity of [facility] Body height 2020-04-14 18:56:00 154.9 cm Universi ty of [facility] Body weight 2020-04-14 18:56:00 64.411 kg [facility]i ty [facility] BMI 2020-04-14 18:56:00 26.83 kg/m2 [facility]i ty [facility] Oxygen saturation in 2020-04-14 18:56:00 97 /min University of Arterial blood by [place] [facility] shabnam Pulse oximetry Branch Systolic blood 2020-03-26 19:23:00 145 mm[Hg] Univer sity of pressure [facility] Diastolic blood 2020-03-26 19:23:00 90 mm[Hg] Unive rsity of pressure [facility] Heart rate 2020-03-26 19:23:00 103 /min Universi ty of [facility] Body height 2020-03-26 19:18:00 154.9 cm Universi ty of [facility] Body weight 2020-03-26 19:18:00 64.411 kg Universi ty of [facility] BMI 2020-03-26 19:18:00 26.83 kg/m2 Universi ty [facility] Systolic blood 2020-03-20 19:41:00 118 mm[Hg] Univer sity of pressure [facility] Diastolic blood 2020-03-20 19:41:00 74 mm[Hg] Unive rsity of pressure [facility] Heart rate 2020-03-20 19:41:00 108 /min Universi ty of [facility] Body height 2020-03-20 19:41:00 154.9 cm Universi ty [facility] Body weight 2020-03-20 19:41:00 69.854 kg [facility]i ty [facility] BMI 2020-03-20 19:41:00 29.10 kg/m2 [facility]i ty [facility] Systolic blood 2020-02-28 18:30:00 132 mm[Hg] Univer sity of pressure [facility] Diastolic blood 2020-02-28 18:30:00 81 mm[Hg] Unive rsity of pressure [facility] Heart rate 2020-02-28 18:30:00 105 /min Universi ty of [facility] Body height 2020-02-28 18:30:00 154.9 cm Universi ty of [facility] Body weight 2020-02-28 18:30:00 69.854 kg [facility]i ty of [facility] BMI 2020-02-28 18:30:00 29.10 kg/m2 [facility] ty [facility] Systolic blood 2020-01-17 20:27:00 150 mm[Hg] Univer sity of pressure [facility] Diastolic blood 2020-01-17 20:27:00 87 mm[Hg] Unive rsity of pressure [facility] Respiratory rate 2020-01-17 20:27:00 18 /min Univ ersity of [facility] Branch Body height 2020-01-17 20:27:00 154.9 cm Universi ty of [facility] Body weight 2020-01-17 20:27:00 64.411 kg Universi ty of [facility] BMI 2020-01-17 20:27:00 26.83 kg/m2 Universi ty of [facility] Branch Systolic blood 2019-07-12 19:01:00 137 mm[Hg] Univer sity of pressure [facility] Diastolic blood 2019-07-12 19:01:00 82 mm[Hg] Unive rsity of [facility] Heart rate 2019-07-12 19:01:00 118 /min Universi ty of [facility] Body height 2019-07-12 19:01:00 154.9 cm Universi ty of [facility] Body weight 2019-07-12 19:01:00 68.947 kg Universi ty of [facility] BMI 2019-07-12 19:01:00 28.72 kg/m2 Universi ty of [facility] Body height 2019-07-04 20:25:00 154.9 cm Universi ty of [facility] Body weight 2019-07-04 20:25:00 68.947 kg Universi ty of [facility] BMI 2019-07-04 20:25:00 28.72 kg/m2 Universi ty of [facility] Branch Systolic blood 2019-06-19 19:35:00 146 mm[Hg] Univer sity of [facility] Diastolic blood 2019-06-19 19:35:00 94 mm[Hg] [facility] Heart rate 2019-06-19 19:35:00 116 /min Universi ty of [facility] Body height 2019-06-19 19:35:00 154.9 cm Universi ty of [facility] Body weight 2019-06-19 19:35:00 68.947 kg Universi ty of [facility] BMI 2019-06-19 19:35:00 28.72 kg/m2 Universi ty of [facility] Procedures Procedure Date / Time Performing Clinician Source Performed XR CERVICAL SPINE 2 VW 2021-10-29 17:12:49 Marietta Flynn [facility] ASSIGNMENT OF BENEFITS 2021-10-29 16:45:37 Doctor Unassigned, No [facility] XR CERVICAL SPINE 2 VW 2020-10-07 20:11:47 Marietta Flynn [facility] [place] [facility] XR KNEE <3 VW RIGHT 2020-10-07 20:11:47 Marietta Flynn [facility] EXTERNAL PROVIDER 2020-07-24 06:01:00 Doctor Unassigned, No [facility] Branch EXTERNAL PROVIDER 2020-05-27 06:01:00 Doctor Unassigned, No [facility] Name [facility] Branch XR LUMBAR SPINE 5 VW 2020-05-07 16:12:20 Rosie Jean [facility] LACTIC ACID WHOLE BLOOD 2020-04-14 20:56:00 Nikos Santana [facility] CT ABDOMEN PELVIS W 2020-04-14 20:50:23 Nikos Santana [facility] CONTRAST [facility] Branch LIPASE 2020-04-14 20:00:00 Su Jenkins [facility] [place] TROPONIN I 2020-04-14 20:00:00 Nikos Santana [facility] [place] COMP. METABOLIC PANEL 2020-04-14 20:00:00 Su Jenkins [facility] ([id number]) [facility] CBC WITH DIFF 2020-04-14 20:00:00 Su Jenkins [facility] [place] GLYCOSYLATED HEMOGLOBIN 2020-04-14 20:00:00 Nikos Santana [facility] (A1C) [facility] URINALYSIS 2020-04-14 20:00:00 Su Jenkins [facility] [place] POCT TEST 2020-04-14 20:00:00 Su Jenkins [facility] NOTICE OF PRIVACY 2020-04-14 19:18:40 Doctor Unassigned, No [facility] Name [facility] Branch CONSENT/REFUSAL FOR 2020-04-14 19:18:25 Doctor Unassigned, No [facility] DI[facility]NOSIS AND TREATMENT Name Medical Branch NON [facility] 2020-02-14 05:01:00 Doctor Unassigned, No Univ [facility] DOCUMENTATION Name Medical Branch EKG-12 LEAD 2020-02-07 16:21:49 [facility]igned, No [facility] CHEST 1 VW 2020-02-07 15:19:01 [facility] PRE-OP 2020-01-17 05:01:00 Doctor Unassigned, No Univer sity of [facility] EXTERNAL MAMMOGRAM 2019-08-01 00:00:00 Doctor Unassigned, No Uni versity of [facility] NON [facility] FACILITY 2019-06-28 06:01:00 Doctor Unassigned, No Univ ersity of [facility] XR CHEST 2 VW 2019-06-22 20:21:12 Dieudonne Young [facility] [place] Encounters Start End Encounter Admission Attending Care Care Encounter Source Date/Time Date/Time Type Type Clinicians Facility Department ID 2021-03-15 Emergency [facility] [id number] Univers 08:02:44 ity of [facility] 2021-10-29 2021-10-29 Outpatient R [facility] [id number] Univers 11:49:28 23:59:00 ABBE ity of [facility] 2021-10-29 2021-10-29 [facility] [id number] Univers 11:45:00 23:59:00 Encounter Abbe AVILES [id number] ity [id number] [id number] [facility] 807 Branch 2021-10-29 2021-10-29 Outpatient R [facility] [id number] Univers 11:45:00 11:45:00 [id number] ity of [facility] 2021-10-29 2021-10-29 Orders Doctor TEJADA [id number] Univers 00:00:00 00:00:00 Only Unassigned, PAOLO [id number] ity of [place] [facility] [id number] Andrea as [phone] [facility] 009 Branch 2021-01-23 2021-01-23 Telephone Eliz Medel [id number] Univers 00:00:00 00:00:00 Komal Christian [id number] it y [id number] [id number] [facility] 086 Branch 2020-10-072020-10-07 [facility] [id number] Univers 14:45:00 23:59:00 Encounter Kassidy Aviles [id number] ity of [place] [id number] [place] [facility] [id number] [facility] [address] 2020-10-07 2020-10-07 Outpatient R GEE [facility] [id number] Univers 14:45:00 14:45:00 [id number] ity [facility] 2020-10-07 2020-10-07 Outpatient R GEE [facility] [id number] Univers 00:00:00 00:00:00 ity [facility] 2020-07-24 2020-07-24 Orders Doctor TERRELL 1.2.840.114 [id number] Univers 00:00:00 00:00:00 Only Unassigned, PAOLO [id number] ity of [place] [facility] [id number] Andrea as [phone] [facility] [address] 2020-05-30 2020-05-30 [facility] [id number] Univers 13:45:00 13:45:00 [facility]UDONNE [id number] [facility] 2020-05-30 2020-05-30 [facility] [id number] Univers 13:45:00 13:45:00 DIEUDONNE [facility] 2020-05-30 2020-05-30 Office [facility] [id number] Univers 13:01:34 13:40:25 [facility] [id number] it y of Surgical [id number] Andrea as Specialti [phone] Tn dical [address] [place] 2020-05-28 2020-05-28 Outpatient R [facility] [id number] Univers 11:00:00 11:00:00 [id number] ity [facility] 2020-05-28 2020-05-28 [facility] [id number] Univers 11:00:00 11:00:00 JASMINE itmicheal [facility] 2020-05-28 2020-05-28 Letter Doctor TERRELL 1.2.840.114 [id number] Univers 00:00:00 00:00:00 (Out) Unassigned, PAOLO [id number] ity of [place] [facility] 4.2.7.2.686 Andrea as [phone] [facility] [address] 2020-05-27 2020-05-27 Outpatient Gabriel [facility] [id number] Univers 15:00:00 15:00:00 DIEUDONNE [id number] ity of [facility] 2020-05-27 2020-05-27 Outpatient [facility] [id number] Univers 15:00:00 15:00:00 DIEUDONNE middleton [facility] 2020-05-27 2020-05-27 Orders Doctor TERRELL 1.2.840.114 [id number] Univers 00:00:00 00:00:00 Only Unassigned, PAOLO [id number] ity of [place] [facility] 4.2.7.2.686 Andrea as [phone] [facility] [address] 2020-05-14 2020-05-14 Telephone [facility] [id number] Univers 00:00:00 00:00:00 Rosie [facility] [id number] it y of Surgical [id number] Andrea as Specialti [phone] Tn dical es 198 [facility] 2020-05-07 2020-05-07 [facility] 1.2.840.114 [id number] Univers 09:59:38 23:59:00 Encounter Rosie Tonya Pierre[place] [id number] ity [place].2.[place] [phone] [facility] [address] 2020-05-07 2020-05-07 Outpatient [facility] [id number] Univers 10:00:00 10:00:00 ROSIE [id number] ity [facility] 2020-05-07 2020-05-07 Outpatient Gabriel [facility] [id number] Univers 10:00:00 10:00:00 ROSIE itmicheal [facility] 2020-05-07 2020-05-07 Office [facility] 1.2.840.114 [id number] Univers 09:25:12 09:54:42 [facility] [id number] it y of Surgical [id number] Andrea as Specialti [id number] Tn dical es 198 [facility] 2020-05-06 2020-05-06 Telephone [facility] [id number] Univers 00:00:00 00:00:00 [facility] [id number] it y of Surgical [id number] Andrea as Specialti [id number] Tn dical es 198 [facility] 2020-05-03 2020-05-03 Outpatient Gabriel [facility] [id number] Univers 14:30:00 14:30:00 LISSETT [id number] ity [facility] 2020-05-03 2020-05-03 Outpatient [facility] [id number] Univers 14:30:00 14:30:00 LISSETT [facility] 2020-05-02 2020-05-02 Outpatient [facility] [id number] Univers 12:00:00 12:00:00 [id number] [facility] 2020-05-02 2020-05-02 [facility] [id number] Univers 12:00:00 12:00:00 [facility]NE [facility] 2020-04-26 2020-04-26 Outpatient [facility] [id number] Univers 14:00:00 14:00:00 LISSETT [id number] ity [facility] 2020-04-19 2020-04-19 Outpatient Gabriel [facility] [id number] Univers 08:30:00 08:30:00 LISSETT [facility] 2020-04-14 2020-04-14 Emergency [facility] [id number] Univers 13:38:00 17:04:00 Nikos Bullock [place] [id number] ity of [place] 4.2.7.2.686 [place] [facility] [phone] [facility] [address] 2020-04-14 2020-04-14 Urgent Provider, [facility] 1.2.840.114 [id number] Univers 12:52:12 13:27:33 Care Pratibha [facility] [id number] ity of [place] 4.2.7.2.686 Andrea as Professio [phone] Tn cathial nal [address] Office [facility] 2020-04-14 2020-04-14 Outpatient R [facility] [id number] Univers 13:20:00 13:20:00 [id number] ity of [facility] 2020-04-14 2020-04-14 Outpatient R PENNY [facility] [id number] Univers 13:20:00 13:20:00 PRATIBHA ity [facility] 2020-04-14 2020-04-14 Letter Doctor TERRELL 1.2.840.114 [id number] Univers 00:00:00 00:00:00 (Out) Unassigned, PAOLO 350.1.13.10 ity [facility] [place] [facility] 4.2.7.2.686 Andrea as [phone] [facility] [address] 2020-04-14 2020-04-14 Orders Doctor TERRELL 1.2.840.114 [id number] Univers 00:00:00 00:00:00 Only Unassigned, PAOLO 350.1.13.10 ity [facility] [place] [facility] 4.2.7.2.686 Andrea as [phone] [facility] [address] 2020-03-26 2020-03-26 Office Ted [facility] 1.2.840.114 [id number] Univers 12:56:41 13:11:41 [facility] [id number] it y of Surgical 4.2.7.2.686 Andrea as Specialti [id number] Tn dical es 198 [facility] 2020-03-26 2020-03-26 Outpatient TED [facility] [id number] Univers 13:00:00 13:00:00 ROSIE ity of [facility] 2020-03-26 2020-03-26 Outpatient R TED [facility] [id number] Univers 13:00:00 13:00:00 ROSIE ity [facility] 2020-03-26 2020-03-26 Telephone Hector [facility] 1.2.840.114 [id number] Univers 00:00:00 00:00:00 Dieudonne [facility] [id number] it y of Surgical 4.2.7.2.686 Andrea as Specialti [phone] Tn dical es 198 [facility] 2020-03-20 2020-03-20 Outpatient R HECTOR [facility] [id number] Univers 16:15:00 16:15:00 DIEUDONNE micheal [facility] 2020-03-20 2020-03-20 Out[facility] [id number] Univers 16:15:00 16:15:00 DIEUDONNE micheal [facility] 2020-03-20 2020-03-20 Office Rosie Jean [facility] 1.2.840.114 [id number] Univers 13:05:00 13:20:00 Visit Dieudonne [facility] [id number] ity of Surgical 4.2.7.2.686 Andrea as Specialti [id number] Tn dical es 198 [facility] 2020-03-07 2020-03-07 Telephone [facility] [id number] Univers 00:00:00 00:00:00 Rosie [facility] [id number] it y of Surgical 4.2.7.2.686 Andrea as Specialti [phone] Tn dical es 198 [facility] 2020-02-28 2020-02-28 Out[facility] [id number] Univers 13:45:00 13:45:00 ROSIE [id number] ity [facility] 2020-02-28 2020-02-28 Outpatient [facility] [id number] Univers 13:45:00 13:45:00 ROSIE [facility] 2020-02-28 2020-02-28 Office [facility] 1.2.840.114 [id number] Univers 13:17:47 13:32:47 Visit Rosie [facility] [id number] it y of Surgical 4.2.7.2.686 Andrea as Specialti [phone] Tn dical es 198 [facility] 2020-02-15 2020-02-15 Telephone [facility] 1.2.840.114 [id number] Univers 00:00:00 00:00:00 Dieudonne Mik[facility] [id number] it y of Surgical 4.2.7.2.686 Andrea as Specialti [id number] Tn dical es 198 [facility] 2020-02-14 2020-02-14 [facility] Hector [facility] 1.2.840.114 [id number] Univers 10:39:00 23:59:00 Encounter Dieudonne Miky PATEL [id number] [place] [id number] [facility] [address] 2020-02-14 2020-02-14 Outpatient [facility] NUT [id number] Univers 00:00:00 00:00:00 DIEUDONNE ity [facility] 2020-02-14 2020-02-14 Orders Doctor TERRELL 1.2.840.114 [id number] Univers 00:00:00 00:00:00 Only Unassigned, PAOLO 350.1.13.10 ity [facility] [place] [facility] 4.2.7.2.686 Andrea as [id number] [facility] [address] 2020-02-07 2020-02-07 [facility] 1.2.840.114 [id number] Univers 09:38:26 23:59:00 Encounter Rosie Aviles [id number] ity of [place].2.[place] [id number] [facility] [address] 2020-02-07 2020-02-07 Rod Puller Carole, [facility] Lab Main [facility] 1.2.8 [id number] Univers 09:37:58 09:52:58 Visit Dieudonne Young 350.1.13.10 [place] [facility] [phone] Tn dical nal 353 [facility] 2020-02-07 2020-02-07 Outpatient R [facility] [id number] Univers 09:30:00 09:30:00 [id number] [facility]-07 2020-02-07 Outpatient R [facility] [id number] Univers 09:30:00 09:30:00 [facility] 2020-01-29 2020-01-29 Telephone Hector [facility] 1.2.840.114 [id number] Univers 00:00:00 00:00:00 Dieudonne Miky [facility] 350.1.13.10 it y of Surgical 4.2.7.2.686 Andrea as Specialti [phone] Tn dical es 198 [facility] 2020-01-17 2020-01-17 Office Rosie Jean [facility] 1.2.840.114 [id number] Univers 15:06:02 15:45:55 Visit Dieudonne Young [facility] 350.1.13.10 ity of Surgical 4.2.7.2.686 Andrea as Specialti [phone] Tn dical es 198 [facility] 2020-01-17 2020-01-17 Outpatient R [facility] [id number] Univers 15:15:00 15:15:00 [facility] 2020-01-17 2020-01-17 Outpatient R [facility] [id number] Univers 15:15:00 15:15:00 [facility] 2020-01-17 2020-01-17 Orders Doctor TERRELL 1.2.840.114 [id number] Univers 00:00:00 00:00:00 Only Unassigned, PAOLO 350.1.13.10 ity [place] [facility] 4.2.7.2.686 Andrea as [phone] [address] 2019-09-28 2019-09-28 Outpatient R [facility] [id number] Univers 08:45:00 08:45:00 [facility]NE [id number] [facility] 2019-09-28 2019-09-28 Outpatient R [facility] [id number] Univers 08:45:00 08:45:00 DIEUDONNE [facility] 2019-09-22 2019-09-22 Telephone Hector [facility] 1.2.840.114 [id number] Univers 00:00:00 00:00:00 Dieudonne Health 350.1.13.10 it y of Surgical 4.2.7.2.686 Andrea as Specialti [phone] Tn dical es 198 [facility] 2019-08-30 2019-08-30 Telemedici [facility] 1.2.840.114 [id number] Univers 08:01:54 15:38:48 ne Visit [facility] 350.1.13.10 [place] [phone] [place] [address] [address] 2019-08-30 2019-08-30 Outpatient R [facility] [id number] Univers 12:00:00 12:00:00 OEFRAIN ity o f [facility] 2019-08-10 2019-08-10 [facility] [id number] Univers 14:15:00 14:15:[address] 2019-08-10 2019-08-10 [facility] [id number] Univers 14:15:00 14:15:00 [facility] 2019-08-10 2019-08-10 [facility] 1.2.840.114 [id number] Univers 11:18:10 11:33:10 [facility] 350.1.13.10 i ty of Surgical 4.2.7.2.686 Andrea as Specialti [phone] Tn dical es 198 [facility] 2019-07-27 2019-07-27 [facility] 1.2.840.114 [id number] Univers 00:00:00 00:00:00 [facility] 350.1.13.10 it y of Surgical 4.2.7.2.686 Andrea as Specialti [phone] Tn dical es 198 [facility] 2019-07-12 2019-07-12 Outpatient [facility] [id number] Univers 13:15:00 13:15:00 ROSIE [facility] 2019-07-12 2019-07-12 [facility] 1.2.840.114 [id number] Univers 12:42:26 12:57:26 Visit Rosie [facility] 350.1.13.10 it y of Surgical 4.2.7.2.686 Andrea as Specialti [phone] Me dical es 198 [facility] 2019-07-04 2019-07-04 Office Ted [facility] 1.2.840.114 [id number] Univers 14:24:47 14:39:47 Visit Rosie S [facility] 350.1.13.10 it y of Surgical 4.2.7.2.686 Andrea as Specialti [phone] Tn dical es 198 [facility] 2019-06-28 2019-06-28 Hospital Cheryl Young 1.2.840.114 [id number] Univers 10:28:33 23:59:00 Encounter Dieudonne Bolaños [facility] 350.1.13.10 ity of [place] [phone] [facility] [address] 2019-06-28 2019-06-28 [facility] NUT [id number] Univers 00:00:00 00:00:00 DIEUDONNE ity of [facility] 2019-06-28 2019-06-28 Orders Doctor TERRELL 1.2.840.114 [id number] Univers 00:00:00 00:00:00 Only Unassigned, PAOLO 350.1.13.10 ity of [place] [facility] 4.2.7.2.686 Andrea as [phone] [facility] [address] 2019-06-27 2019-06-27 [facility]phone [facility] 1.2.840.114 [id number] Univers 00:00:00 00:00:00 Dieudonne Bolaños [facility] 350.1.13.10 it y of Surgical 4.2.7.2.686 Andrea as Specialti [phone] Me dical es 198 [facility] 2019-06-22 2019-06-22 Rod Puller Carole, Ree Lab Main [facility] 1.2.8 40.114 [id number] Univers 13:49:06 14:04:06 Visit Dieudonne Young [place] 350.1.13.10 [place] of [place] [phone] Tn dical nal 353 [facility] 2019-06-22 2019-06-22 Outpatient R [facility] [id number] Univers 14:17:53 13:51:00 DIEUDONNE itmicheal [facility] 2019-06-22 2019-06-22 Hospital [facility] 1.2.840.114 [id number] Univers 13:50:00 13:51:00 Encounter Dieudonne Bolaños [place] 350.1.13.10 ity of [place] 4[place]2.7.2.686 [place] [facility] [phone] [facility] [address] 2019-06-20 2019-06-20 Telephone [facility] 1.2.840.114 [id number] Univers 00:00:00 00:00:00 Dieudonne Boalños [facility] 350.1.13.10 it y of Surgical 4.2.7.2.686 Andrea as Specialti [phone] Tn dical es 198 [facility] 2019-06-19 2019-06-19 Office Ted [facility] 1.2.840.114 [id number] Univers 13:29:29 14:48:14 [facility] 350.1.13.10 it y of Surgical 4.2.7.2.686 Andrea as Specialti [phone] Tn dical es 198 [facility] 2019-05-30 2019-05-30 Outpatient Gabriel NIRMALA POE [facility] [id number] Univers 09:26:57 23:59:00 NIRMALA POE [facility] Results Test Test Test Results Result Source Description Time Comments Comments XR KNEE <3 VW 1. No fracture or Uni versity of RIGHT 24 dislocation of the right [facility] 20:31:20 knee.2. Degenerative Bran ch patellofemoral osteoarthritis. RL: ?6200 End of Report Electronically signed by: ?Lissett Sanchez MD ORDERING PHYSICIAN: ?MARIETTA FLYNN HISTORY: ?Cervicalgia, right knee pain STUDY: XR KNEE <3 VW RIGHT Technical Quality: Adequate TECHNIQUE: ?2 views of the right knee Exam was performed according to ALARA (As Low As Reasonably Achievable)dose principles. COMPARISON: None DATE: ?10/07/2020 2:47 PM FINDINGS: ? No fracture, dislocation, or other acute osseous abnormality ofthe right knee. Mild degenerative patellofemoral joint disease. No jointeffusion. No soft tissue disruption. [facility], Radiant Results Inft User - 10/07/2020 3:32 PM CDTORDERING PHYSICIAN: MARIETTA FLYNNHISTORY: Cervicalgia, right knee painSTUDY: XR KNEE <3 VW RIGHTTechnical Quality: AdequateTECHNIQUE: 2 views of the right kneeExam was performed according to ALARA (As Low As Reasonably Achievable)dose principles.COMPARISON: NoneDATE: 10/07/2020 2:47 PMFINDINGS: No fracture, dislocation, or other acute osseous abnormality ofthe right knee. Mild degenerative patellofemoral joint disease. No jointeffusion. No soft tissue disruption.IMPRESSION1. No fracture or dislocation of the right knee.2. Degenerative patellofemoral osteoarthritis.RL: 6200End of ReportElectronically signed by: Lissett Sanchez MD CERVICAL 2020-09- Multilevel spondylosis U niversity of SPINE 2 VW 24 without evidence of [facility] 20:31:10 acute fracture lines. [facility] RL: 6200 CLINICAL HISTORY: Cervicalgia COMPARISON:none TECHNIQUE:XR CERVICAL SPINE 2 VW performed. Technical Quality: Adequate FINDINGS:There are no appreciable vertebral body compressions or subluxations. ?Noappreciable fracture lines. There is multilevel degenerative disc disease,with disc space narrowing, marginal osteophytes, and endplate sclerosis.This is most severe at C5-C6 and C6-C7. No prevertebral soft tissueswelling. [facility], Radiant Results Inft User - 10/07/2020 3:32 PM CDTCLINICAL HISTORY: Cervicalgia COMPARISON:noneTECHNIQUE :XR CERVICAL SPINE 2 VW performed. Technical Quality: AdequateFINDINGS:There are no appreciable vertebral body compressions or subluxations. Noappreciable fracture lines. There is multilevel degenerative disc disease,with disc space narrowing, marginal osteophytes, and endplate sclerosis.This is most severe at C5-C6 and C6-C7. No prevertebral soft tissueswelling.IMPRESSIO NMultilevel spondylosis without evidence of acute fracture lines.RL: 6200 LUMBAR SPINE 2020-04- HISTORY: ?Low back pain. [address] 22 FINDINGS: AP, lateral, 2 [facility] 16:15:12 oblique and spot views Br anch of the lumbar spines showed5 lumbar vertebrae with no acute compression fracture or dislocation. Nosignificant narrowing of the disc spaces or degenerative changes detected.Mild lower 3 lumbar levels facet arthritis noted. Incidental note of cholecystectomy clips in the right upper abdomen and Focal atherosclerotic calcification in the infrarenal segment of theabdominal aorta.. CONCLUSIONS: Mild lower 3 lumbar levels facet arthritis. [facility], Radiant Results Inft User - 05/07/2020 10:16 AM CSTHISTORY: Low back pain.FINDINGS: AP, lateral, 2 oblique and spot views of the lumbar spines showed5 lumbar vertebrae with no acute compression fracture or dislocation. Nosignificant narrowing of the disc spaces or degenerative changes detected.Mild lower 3 lumbar levels facet arthritis noted.Incidental note of cholecystectomy clips in the right upper abdomen andFocal atherosclerotic calcification in the infrarenal segment of theabdominal aorta..CONCLUSIONS: Mild lower 3 lumbar levels facet arthritis. CT ABDOMEN 2020-03- 1. ?Underdistention Univ ersity of PELVIS W 29 versus wall thickening [facility] CONTRAST 22:40:11 involving the distal Bran ch sigmoidcolon. Findings could reflect infectious or inflammatory colitis.2. ?Mild colonic diverticulosis without evidence of diverticulitis.3. ?Mildly prominent uterus with engorgement of the ovarian and uterinevessels suspicious for pelvic congestion syndrome in the appropriateclinical setting.4. ?Hepatomegaly with steatosis. Preliminary Report Dictated by Resident: Lisy Beck I, Tony Lewis MD., have reviewed this study and agree with the abovereport.CT OF THE ABDOMEN AND PELVIS WITH IV CONTRAST HISTORY: Bowel obstruction, high-grade TECHNIQUE: Continuous axial imaging was performed with sagittal and coronalreformatted images after the administration of 120 cc's IV Omnipaque 350. COMPARISON: None FINDINGS: LOWER THORAX: The lung bases are clear.. No pericardial effusion. LIVER: Mildly enlarged measuring 22 cm in craniocaudal dimension withdiffuse hypoattenuation and normal contour.. GALLBLADDER & BILIARY TREE: The gallbladder is surgically absent. PANCREAS: No focal lesion or ductal dilation. SPLEEN: No splenomegaly. ADRENALS: No adrenal nodules. KIDNEYS: Symmetric enhancement. No hydronephrosis, focal lesion or stones. PELVIS/BLADDER: The bladder is unremarkable. Anteverted mildly enlargeduterus relative to age with prominence of the bilateral ovarian and uterineveins. No suspicious adnexal masses. GASTROINTESTINAL: No evidence of bowel obstruction. A few descending andsigmoid colonic diverticula are noted without diverticulitis.Underdist ention versus wall thickening involving the distal sigmoid colon(4:76). The appendix is normal (4:54). PERITONEUM/RETROPERITONE UM: No free air or fluid. VASCULAR: ?Atherosclerotic calcifications are seen in the abdominal aortaand its branches. LYMPHATICS: No enlarged lymph nodes by CT size criteria. BONES AND SOFT TISSUES: No concerning bony lesion identified. [facility], Radiant Results Inft User - 04/14/2020 4:41 PM CSTCT OF THE ABDOMEN AND PELVIS WITH IV CONTRASTHISTORY: Bowel obstruction, high-grade TECHNIQUE: Continuous axial imaging was performed with sagittal and coronalreformatted images after the administration of 120 cc's IV Omnipaque 350.COMPARISON: NoneFINDINGS:LOWER THORAX: The lung bases are clear.. No pericardial effusion. LIVER: Mildly enlarged measuring 22 cm in craniocaudal dimension withdiffuse hypoattenuation and normal contour.. GALLBLADDER & BILIARY TREE: The gallbladder is surgically absent.PANCREAS: No focal lesion or ductal dilation. SPLEEN: No splenomegaly. ADRENALS: No adrenal nodules. KIDNEYS: Symmetric enhancement. No hydronephrosis, focal lesion or stones. PELVIS/BLADDER: The bladder is unremarkable. Anteverted mildly enlargeduterus relative to age with prominence of the bilateral ovarian and uterineveins. No suspicious adnexal masses.GASTROINTESTINAL: No evidence of bowel obstruction. A few descending andsigmoid colonic diverticula are noted without diverticulitis.Underdist ention versus wall thickening involving the distal sigmoid colon(4:76). The appendix is normal (4:54). PERITONEUM/RETROPERITONE UM: No free air or fluid.VASCULAR: Atherosclerotic calcifications are seen in the abdominal aortaand its branches. LYMPHATICS: No enlarged lymph nodes by CT size criteria.BONES AND SOFT TISSUES: No concerning bony lesion identified. IMPRESSION1. Underdistention versus wall thickening involving the distal sigmoidcolon. Findings could reflect infectious or inflammatory colitis.2. Mild colonic diverticulosis without evidence of diverticulitis.3. Mildly prominent uterus with engorgement of the ovarian and uterinevessels suspicious for pelvic congestion syndrome in the appropriateclinical setting.4. Hepatomegaly with steatosis.Preliminary Report Dictated by Resident: Tony Izaguirre MD., have reviewed this study and agree with the abovereport. Lactic Acid Whole Blood 2020-04-14 21:34:00 Test Item Value Reference Range Interpretation Comme nts LACTIC ACID (test code = 2392807668) 1.17 mmol/L [facility] [id number] 21:30:00 Test Item Value Reference Range Interpretation Comments TROPONIN I (test <0.012 See_Comment [Automated code = 9623131021) message] The system which generated this result transmitted reference range : <=0.034 ng/mL. The reference range was not used to interpr et this result as normal/abnormal . WILFRID (test code = Equal or Less than WILFRID) 0.034 ng/ml---Normal ?Note: Cardiac troponin begins to rise 3-4 hours after the onset of ischemia. Repeat in 4-6 hours if the sample was drawn within 3-4 hours of the onset of the symptom and found normal. Between 0.035 and 0.120 ng/mL--- Borderline. Questionable myocardial injury or necrosis ? ?Note: Serial measurement may be necessary to confirm or exclude the diagnosis of myocardial injury or necrosis; Clinical correlation (symptoms, EKGs, imaging studies, and others) required; Repeat in 4-6 hours if clinically indicated. ? Equal or Higher than 0.121 ng/mL---Abnormal. Myocardial Injury or Necrosis Likely ? Biotin has been reported to cause a negative bias, interpret results relative to patient's use of biotin. ? Lab Interpretation Normal (test code = 95655-4) [facility]GLYCOSYLATED HEMOGLOBIN (A1C)2020-04-14 21:12:00 Test Item Value Reference Range Interpretation Comments HGB A1C (test code = 11.2 % 4-6 H 4548-4) WILFRID (test code = WILFRID) %A1C (NGSP) Interpretation (ADA)4.8-5.6 ? ? Normal or (Non-Diabetic Range)5.7-6.4 ? ? Increased Risk (Pre-Diabetic)>6.5 ?Diabetes Indicated Lab Interpretation Abnormal (test code = 91503-9) [facility] TexasUrinalysis2020-11-29 20:30:00 Test Item Value Reference Range Interpretation Comments APPEARANCE (test code = Clear Clear 4940933213) COLOR (test code = Yellow Yellow 5245396244) PH (test code = 4.8-8.0 7678208830) SP GRAVITY (test code = 1.003-1.030 H 5736554014) GLU U QUAL (test code = 500 mg/dL Normal A 4636764477) BLOOD (test code = 1+ Negative A 0835161982) KETONES (test code = 5 mg/dL Negative A 5444637754) PROTEIN (test code = Negative Negative 2887-8) UROBILIN (test code = Normal Normal 2757343420) BILIRUBIN (test code = Negative Negative 8648041195) NITRITE (test code = Negative Negative 2322919064) LEUK LY (test code = Negative Negative 8756351448) RBC/HPF (test code = See_Comment H [Autom ated message] 9491779106) The system [employer] generated this result transmit luis reference range : 0 - 3 HPF. The refe rence range was not u sed to interpret th is result as normal/abnormal . WBC/HPF (test code = See_Comment [Autom ated message] 9446448823) The system [employer] generated this result transmit luis reference range : 0 - 5 HPF. The refe rence range was not u sed to interpret th is result as normal/abnormal . BACTERIA (test code = Negative Negative 9664391710) SQ EPITH (test code = HPF 5550321569) Lab Interpretation (test Abnormal code = 36039-5) [facility] TexasComplete Metabolic [id number] 20:22:00 Test Item Value Reference Range Interpretation Comments NA (test code = 135 mmol/L 135-145 6348048144) K (test code = 4.1 mmol/L 3.5-5 1491099932) CL (test code = 98 mmol/L 98-108 3794019263) CO2 TOTAL (test code = 30 mmol/L 23-31 0818903111) AGAP (test code = 2-16 4776812888) BUN (test code = 13 mg/dL 7-23 9515510793) GLUCOSE (test code = 349 mg/dL 70-110 H 4466117410) CREATININE (test code = 0.51 mg/dL 0.5-1.04 8663485947) TOTAL BILI (test code = 0.6 mg/dL 0.1-1.7 8028731507) CALCIUM (test code = 9.3 mg/dL 8.6-10.6 2393509530) T PROTEIN (test code = 7.4 g/dL 6.3-8.2 7754689391) ALBUMIN (test code = 4.1 g/dL 3.5-5 6067589216) ALK PHOS (test code = 109 U/L 34-122 0806774370) ALTv (test code = 18 U/L 5-35 1742-6) AST(SGOT) (test code = 19 U/L 13-40 3066836144) eGFR Calculation mL/min/1.73m2 (Non-) (test code = 9970370578) eGFR Calculation mL/min/1.73m2 () (test code = 2918526425) WILFRID (test code = WILFRID) Association of Glomerular Filtration Rate (GFR) and Staging of Kidney Disease* + --+ --+ ------+| GFR (mL/min/1.73 m2) ?| With Kidney Damage ?| ?Without Kidney Damage+ --------+ --------+ +| ?>90 ?| ?Stage one ?| ? Normal ?+ ---+ ---+ -------+| ?60-89 ?| ?Stage two ?| ? Decreased GFR ? + --+ --+ ------+| ?30-59 ?| ?Stage three ?| ? Stage three ? + --+ --+ ------+| ?15-29 ?| ?Stage four ? | ? Stage four ?+ ---+ ---+ -------+| ?<15 (or dialysis) ? ?| ?Stage five ? | ? Stage five ?+ ---+ ---+ -------+ *Each stage assumes the associated GFR level has been in effect for at least three months. ?Stages 1 to 5, with or without kidney disease, indicate chronic kidney disease. Notes: Determination of stages one and two (with eGFR >59mL/min/1.73 m2) requires estimation of kidney damage for at least three months as defined by structural or functional abnormalities of the kidney, manifested by either:Pathological abnormalities or Markers of kidney damage (including abnormalities in the composition of the blood or urine or abnormalities in imaging tests). Lab Interpretation Abnormal (test code = 12911-9) [facility] TexasLipase, [id number] 20:21:00 Test Item Value Reference Range Interpretation Comments LIPASE (test code = 6844312421) 459 U/L 0-220 H Lab Interpretation (test code = Abnormal 13344-0) [facility] TexasCBC with [id number] 20:09:00 Test Item Value Reference Range Interpretation Comments WBC (test code = See_Comment [Automated 8406-2) message] The sy stem which generated this result transmitted reference range : 4.30 - 11.10 10*3/?L. The reference range was not used to interpret this result as normal/abnormal . RBC (test code = See_Comment [Automated 715-8) message] The sy stem which generated this result transmitted reference range : 3.93 - 5.25 10*6/?L. The reference range was not used to interpret this result as normal/abnormal . HGB (test code = 13.5 g/dL 11.6-15 718-7) HCT (test code = 38.4 % 35.7-45.2 4544-3) MCV (test code = 85.5 fL 80.6-95.5 787-2) MCH (test code = 30.1 pg 25.9-32.8 785-6) MCHC (test code = 35.2 g/dL 31.6-35.1 H 786-4) RDW-SD (test code = 37.3 fL 39-49.9 L 73625-5) RDW-CV (test code = 11.9 % 12-15.5 L 788-0) PLT (test code = See_Comment [Automated 777-3) message] The sy stem which generated this result transmitted reference range : 166 - 358 10*3/ ?L. The reference r romel was not used to interpret this result as normal/abnormal . MPV (test code = 11.1 fL 9.5-12.9 61950-3) NRBC/100 WBC (test See_Comment [Automat ed code = 6093158760) message] The system which generated this result transmitted reference range : 0.0 - 10.0 /100 WBCs. The refer ence range was not u sed to interpret th is result as normal/abnormal . NRBC x10^3 (test code <0.01 See_Comment [Auto mated = 2547708235) message] The s ystem which generated this result transmitted reference range : 10*3/?L. The reference range was not used to interpret this result as normal/abnormal . GRAN MAT (NEUT) % 57.1 % (test code = 770-8) IMM GRAN % (test code 0.50 % = 6592837660) LYMPH % (test code = 33.7 % 736-9) MONO % (test code = 6.7 % 5905-5) EOS % (test code = 1.7 % 713-8) BASO % (test code = 0.3 % 706-2) GRAN MAT x10^3(ANC) 4.45 10*3/uL 1.88-7.09 (test code = 9030959878) IMM GRAN x10^3 (test 0.04 10*3/uL 0-0.06 code = 5655602490) LYMPH x10^3 (test code 2.62 10*3/uL 1.32-3.29 = 731-0) MONO x10^3 (test code 0.52 10*3/uL 0.33-0.92 = 742-7) EOS x10^3 (test code = 0.13 10*3/uL 0.03-0.39 711-2) BASO x10^3 (test code <0.03 0.01-0.07 = 704-7) Lab Interpretation Abnormal (test code = 64703-3) [facility] [id number] 20:00:00 Test Item Value Reference Range Interpretation Comments POCT PREG (test code = 1605) negative Lab Interpretation (test code = Normal 59664-4) [facility] CHEST 1 [id number] 15:23:07HISTORY: Preop. FINDINGS: PA view of the chest showed normal appearance of thecardiomediastinal silhouette. Comparison is made with 06/22/2019 study. Noacute pneumonia, pleural effusion, pulmonary congestion detected. Minimalmid thoracic dextroscoliosis is noted. CONCLUSIONS: No signs of acute cardiopulmonary disease. [facility], Radiant Results Inft User - 02/07/2020 10:24 AM CDTHISTORY: Preop.FINDINGS: PA view of the chest showed normal appearance of thecardiomediastinal silhouette. Comparison is made with 06/22/2019 study. Noacute pneumonia, pleural effusion, pulmonary congestion detected. Minimalmid thoracic dextroscoliosis is noted.CONCLUSIONS: No signs of acute cardiopulmonary disease. [facility] [id number] 00:00:00Please see results in Care Everywhere. FINDINGS: A mildly dense, symmetric breast parenchymal pattern is present. No dominant mass or suspicious microcalcification clusters. No significant or suspicious changes from prior imaging.IMPRESSION: 1. No mammographic evidence for malignancy.2. Annual mammography is the recommendation for the patient.BI-RAD: 1 Negative.[facility] [id number] 00:00:00Please see results in Care Everywhere. FINDINGS: A mildly dense, symmetric breast parenchymal pattern is present. No dominant mass or suspicious microcalcification clusters. No significant or suspicious changes from prior imaging.IMPRESSION: 1. No mammographic evidence for malignancy.2. Annual mammography is the recommendation for the patient.BI-RAD: 1 Negative.[facility] CHEST 2 [id number] 20:24:29HISTORY: Preop. TECHNIQUE: PA and lateral views of the chest are obtained. FINDINGS: No acute pneumonia detected. No pneumothorax or pleural effusionor pulmonary congestion. Cardiothoracic ratio of approximately 12/28.8 cmis consistent with normal cardiac size. Very small calcified granuloma inthe right upper lobe and left lingula segment suspected. No compressiondeformity in the thoracic vertebral bodies or any aggressive bone lesionsvisualized. Clips are seen in the right upper abdomen, likely utilized forcholecystectomy. CONCLUSIONS: No signs of acute cardiopulmonary disease.[facility], Radiant Results Inft User - 06/22/2019 2:25 PM CSTHISTORY: Preop.TECHNIQUE: PA and lateral views of the chest are obtained.FINDINGS: No acute pneumonia detected. No pneumothorax or pleural effusionor pulmonary congestion. Cardiothoracic ratio of approximately 12/28.8 cmis consistent with normal cardiac size. Very small calcified granuloma inthe right upper lobe and left lingula segment suspected. No compressiondeformity in the thoracic vertebral bodies or any aggressive bone lesionsvisualized. Clips are seen in the right upper abdomen, likely utilized forcholecystectomy.CONCLUSIONS: No signs of acute cardiopulmonary disease.[facility]"
[2022-01-04] MEDS ORDERED: INSULIN LISPRO 100 UNIT/1 ML SQ ONE (10:30)
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
[2022-01-04] MEDS ORDERED: LIDOCAINE 1% MPF 2 ML AMPULE ONE (13:53)
[2022-01-04] MEDS ORDERED: AZITHROMYCIN 250 MG TAB ONE (13:53)
[2022-01-04] MEDS ORDERED: CEFTRIAXONE 500 MG/VIAL ONE (13:53)
[2022-01-04] MEDS ORDERED: ONDANSETRON 4 MG (ODT) TAB ONE (13:53)
[2022-01-04] MEDS ORDERED: IBUPROFEN 400 MG TAB ONE (14:14)
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
--- NOTE | 2022-01-04 15:13 | RAD REPORT ---
EXAM DESCRIPTION: RAD - Lumbar Spine 3 Views - 01/04/2022 3:04 pm CLINICAL HISTORY: PAIN COMPARISON: Lumbar Spine 3 Views dated 08/14/2020 FINDINGS: A three-view lumbar spine examination was performed. Lumbar bodies are normal in height and alignment. No fracture or acute bony process seen. No disc spa ce narrowing. Mild facet joint degenerative change. No pars defects identified. IMPRESSION: Negative Lumbar Spine examination. No significant change from 2020 study.
[2022-01-04 17:38] VITALS: TEMP 98.1
[2022-01-04 17:40] VITALS: BP 136/67; O2SAT 97
== END 2022-01-04 16:00 | disposition home or self-care (01) ==
LOC: ER 08:27
DX: T76.21XA Adult sexual abuse, suspected, initial encounter (principal); F17.210 Nicotine dependence, cigarettes, uncomplicated; E11.9 Type 2 diabetes mellitus without complications; Z79.4 Long term (current) use of insulin; I10 Essential (primary) hypertension
CPT/HCPCS: 82947 ×2; 72100; 72170; J1815; Q0162; J0696; 96372; 99284

== ENCOUNTER 2024-08-20 00:23 | Emergency (ER) | payer OTHER ==
--- OUTSIDE RECORDS SUMMARY | 2024-08-20 00:29 | XMS REPORT | Continuity of Care Document ---
Author Name Unknown Address [address] [facility] [address] [place] [address] Organization [facility] [place] Address [address] [facility] [address] [place] [address] Care Team Providers Care Brine Well Operator Name Role Phone JuanGeronimo herrera Jr. Primary Care Physician + [phone] [email or web address] Attending Clinician Kristofer Martines MD Attending Clinician + [phone] KRISTOFER HUMPHREY Attending Clinician KRISTOFER Martines Attending Clinician Viri mathew Doctor Unassigned, [place] Attending Clinician [place] [id number], [facility] Attending Clinician Unavail DENNIS Andrade Attending Clinician Unavailable Earl Shaffer MD, Chilvana Attending Clinician [phone] ELIDA FUNG Attending Clinician Elida Culver MD Attending Clinician [phone] Team, [facility] Attending Clinicia n Unavailable DIEUDONNE YOUNG Attending Clinician Unavailmaggie rincon Lab, Ang - Db Attending Clinician Unavailable Dieudonne Young MD Attending Clinician [phone] RADIOLOGY Attending Clinician Unavailable [facility] Main Attending Clinician Chelsey Castillo MD, Abbe Castaneda Attending Clinician [phone] DMITRY SY Attending Clinician Unavail able DMITRY SY Attending Clinician Unavail able Dmitry Sy MD Attending Clinician [phone] ABBE CASTILLO Attending Clinician Unavailab Komal Sesay MA Attending Clinician UnavailMarietta Galicia Attending Clinician [phone] MARIETTA FLYNN Attending Clinician Unavailable JASMINE SENA Attending Clinician Unavailable Rosie Pena Attending Clinician [phone] ROSIE JEAN Attending Clinician Unavailable ASHA BERRY Attending Clinician Unavailable Kari BATES, Ivory Bullock Attending Clinician [phone] [facility] Attending Clinician Un available Eliza Brady Attending Clinician [phone] ELIZA FRANCIS Attending Clinician Unavailable Efrain Meyer PHD Attending Clinicia n EFRAIN MEYER Attending Clinician Un available [email or web address] Admitting Clinician Unavaila DIEUDONNE David Admitting Clinician UnavailELIDA Newell Admitting Clinician UnavailMARIETTA Galicia Admitting Clinician Unavailable DMITRY SY Admitting Clinician Unavail able Payers Payer Name Policy Type Policy Number Effective Date Expirati on Date Source [facility] [id number] 2018 00:00:00 [facility] [id number] 2015 00:00:00 Problems Condition Name Condition Details Condition Category Status Onset Date Resolution Date Last Treatment Date Treating Clinician Comments Source No known active problems No known active problems Disease [facility] Allergies, Adverse Reactions, Alerts Allergy Name Allergy Type Status Severity Reaction(s) Onset Date Inactive Date Treating Clinician Comments Source NO KNOWN ALLERGIE S Drug Class Active [facility] Social History Social Habit Start Date Stop Date Quantity Comments Source History of tobacco use Smokes tobacco daily [facility] Exposure to SARS-CoV-2 (event) 2022-08-02 00:00:00 2022-08-12 12:53:00 Not sure [facility] Tobacco use and exposure 2022-02-02 00:00:00 2022-02-02 00:00:00 Smokeless tobacco non-user [facility] Sex Ass[birth year] At 1970 00:00:00 1970 00:00:00 [facility] Smoking Status Start Date Stop Date Source Smokes tobacco daily 2022-02-02 00:00:00 [facility] Medications Ordered Medication Name Filled Medication Name Start Date Stop Date Current Medication? Ordering Clinician Indication Dosage Frequency Signature (SIG) Comments Components Source esomeprazol e 40 mg capsule 08-12 13:17: 56 Yes esomeprazo le magnesium 40 mg capsule,de layed release [facility] gabapentin 300 mg capsule 08-12 13:17: 56 Yes gabapentin 300 mg capsule [facility] insulin degludec (TRESIBA FLEXTOUCH U-100) 100 unit/mL (3 mL) InPn 08-12 13:17: 56 Yes Tresiba FlexTouch U-100 insulin 100 unit/mL (3 mL) subcutaneo us pen [facility] levocetiriz ine 5 mg tablet 08-12 13:17: 56 Yes levocetiri zine 5 mg tablet [facility] meloxicam 7.5 mg tablet 08-12 13:17: 56 Yes meloxicam 7.5 mg tablet [facility] pantoprazol e 20 mg EC tablet 08-12 13:17: 56 Yes pantoprazo le 20 mg tablet,del ayed release [facility] SERTraline 50 mg tablet 01-12 00:00: 00 Yes 50mg Take 50 mg by mouth in the morning. [facility] ISENTRESS 400 mg tablet 01-06 00:00: 00 Yes TAKE 1 TABLET BY MOUTH TWICE A DAY FOR 28 DAYS [facility] emtricitabi ne-tenofovi r, TDF, 200-300 mg tablet 01-05 00:00: 00 Yes TAKE 1 TABLET BY MOUTH ONCE A DAY FOR 28 DAYS [facility] buPROPion SR 150 mg SR tablet 01-01 00:00: 00 Yes TAKE BY MOUTH 1 TABLET DAILY IN THE MORNING FOR 3 DAYS THEN 1 TABLET 2 TIMES A DAY [facility] pregabalin 50 mg capsule 01-01 00:00: 00 Yes 50mg Take 50 mg by mouth in the morning and 50 mg in the evening. [facility] FLUoxetine 40 mg capsule 12-18 00:00: 00 Yes 40mg Take 40 mg by mouth in the morning. [facility] dicyclomine (BENTYL) injection 20 mg 2019-05 23:45: 00 04-15 11:44 :00 No 20mg 20 mg, Intramuscu lar, ONCE, 1 dose, 04/14/20 at 1745, Routine [facility] metroNIDAZO LE (FLAGYL) tablet 500 mg 2019-05 23:45: 00 04-15 11:44 :00 No 500mg 500 mg, Oral, ONCE, 1 dose, 04/14/20 at 1745, Routine
Reason for Anti-Infec tive: Documented Infection< br>Documen luis Infection Site: Abdominal< br>Duratio n of Therapy: 7 days [facility] ciprofloxac in HCl (CIPRO) tablet 500 mg 2019-05 23:45: 00 04-15 11:44 :00 No 500mg 500 mg, Oral, ONCE, 1 dose, 04/14/20 at 1745, WILIAM
Re ason for Anti-Infec tive: Documented Infection< br>Documen luis Infection Site: Abdominal< br>Duratio n of Therapy: 7 days [facility] ketorolac (TORADOL) injection 30 mg 2019-05 23:00: 00 04-14 21:54 :00 No 30mg 30 mg, Slow IV Push, ONCE, 1 dose, 04/14/20 at 1700, Routine
front desk team member approving Restricted medication : IVORY SANTANA [facility] proMETHazin e 25 mg tablet 2019-05 22:44: 51 04-14 00:00 :00 No promethazi ne 25 mg tablet [facility] methocarbam oL 500 mg tablet 2019-05 22:44: 39 04-14 00:00 :00 No methocarba mol 500 mg tablet [facility] prednisoLON E acetate 1 % ophthalmic suspension drops 2019-05 22:44: 18 04-14 00:00 :00 No prednisolo ne acetate 1 % eye drops,susp ension [facility] escitalopra m oxalate 20 mg tablet 2019-05 22:43: 57 04-14 00:00 :00 No escitalopr am 20 mg tablet [facility] methen-sod phos-meth blue-hyos (UROGESIC-B LUE) 81.6-40.8-0 .12 mg Tab 2019-05 22:30: 07 04-14 00:00 :00 No Urogesic-B lue 81.6 mg-40.8 mg-0.12 mg tablet Take 1 tablet by oral route for 1 day. [facility] ondansetron 4 mg disintegrat ing tablet 2019-05 22:30: 07 04-14 00:00 :00 No ondansetro n 4 mg disintegra ting tablet [facility] famotidine (PEPCID (PF)) injection 20 mg 2019-05 21:45: 00 04-14 21:43 :00 No 20mg 20 mg, Slow IV Push, ONCE, 1 dose, 04/14/20 at 1545, WILIAM [facility] iohexol (OMNIPAQUE 350 BULK-100 mL) injection 120 mL 2019-05 21:00: 00 04-14 20:43 :00 No 120mL 120 mL, Intravenou s, ONCE, 1 dose, 04/14/20 at 1500, Routine [facility] sodium chloride (NS) injection 5 mL 2019-05 19:57: 51 Yes 5mL 5 mL, Intravenou s, PRN, Starting 04/14/20 at 1357, Until Discontinu ed, Routine, IV line flushing [facility] esomeprazol e 40 mg capsule 2019-05 18:57: 18 Yes esomeprazo le magnesium 40 mg capsule,de layed release [facility] gabapentin 300 mg capsule 2019-05 18:57: 18 Yes gabapentin 300 mg capsule [facility] insulin degludec (TRESIBA FLEXTOUCH U-100) 100 unit/mL (3 mL) InPn 2019-05 18:57: 18 Yes Tresiba FlexTouch U-100 insulin 100 unit/mL (3 mL) subcutaneo us pen [facility] levocetiriz ine 5 mg tablet 2019-05 18:57: 18 Yes levocetiri zine 5 mg tablet [facility] meloxicam 7.5 mg tablet 2019-05 18:57: 18 Yes meloxicam 7.5 mg tablet [facility] pantoprazol e 20 mg EC tablet 2019-05 18:57: 18 Yes pantoprazo le 20 mg tablet,del ayed release [facility] escitalopra m oxalate 20 mg tablet 2019-05 18:57: 18 Yes escitalopr am 20 mg tablet [facility] methen-sod phos-meth blue-hyos (UROGESIC-B LUE) 81.6-40.8-0 .12 mg Tab 2019-05 18:57: 18 Yes Urogesic-B lue 81.6 mg-40.8 mg-0.12 mg tablet Take 1 tablet by oral route for 1 day. [facility] methocarbam oL 500 mg tablet 2019-05 18:57: 18 Yes methocarba mol 500 mg tablet [facility] ondansetron 4 mg disintegrat ing tablet 2019-05 18:57: 18 Yes ondansetro n 4 mg disintegra ting tablet [facility] prednisoLON E acetate 1 % ophthalmic suspension drops 2019-05 18:57: 18 Yes prednisolo ne acetate 1 % eye drops,susp ension [facility] proMETHazin e 25 mg tablet 2019-05 18:57: 18 Yes promethazi ne 25 mg tablet [facility] esomeprazol e 40 mg capsule 2019-05 12:57: 18 Yes esomeprazo le magnesium 40 mg capsule,de layed release [facility] gabapentin 300 mg capsule 2019-05 12:57: 18 Yes gabapentin 300 mg capsule [facility] insulin degludec (TRESIBA FLEXTOUCH U-100) 100 unit/mL (3 mL) InPn 2019-05 12:57: 18 Yes Tresiba FlexTouch U-100 insulin 100 unit/mL (3 mL) subcutaneo us pen [facility] levocetiriz ine 5 mg tablet 2019-05 12:57: 18 Yes levocetiri zine 5 mg tablet [facility] meloxicam 7.5 mg tablet 2019-05 12:57: 18 Yes meloxicam 7.5 mg tablet [facility] pantoprazol e 20 mg EC tablet 2019-05 12:57: 18 Yes pantoprazo le 20 mg tablet,del ayed release [facility] dicyclomine 20 mg tablet 2019-05 00:00: 00 Yes [id number] 20mg Take 1 tablet by mouth 4 (four) times daily as needed for Abdominal pain. [facility] metroNIDAZO LE 500 mg tablet 2019-05 00:00: 00 04-25 05:59 :00 No [id number] 500mg Take 1 tablet by mouth 2 (two) times daily for 10 days. [facility] ciprofloxac in HCl 500 mg tablet 2019-05 00:00: 00 04-25 05:59 :00 No [id number] 500mg Take 1 tablet by mouth every 12 (twelve) hours for 10 days. [facility] hydrocortis one 25 mg suppository 2019-05 00:00: 00 04-22 05:59 :00 No [id number] 25mg Insert 1 Suppositor y into rectum 2 (two) times daily for 7 days. [facility] SYNJARDY XR 25-1,000 mg TBph 2019-05 022 00:00: 00 Yes TAKE 1 TABLET BY MOUTH DAILY WITH MORNING MEAL [facility] estradioL 0.5 mg tablet 2019-05 019 00:00: 00 Yes .5mg Take 1 tablet by mouth in the morning. [facility] tiZANidine 4 mg tablet 2019-05 008 00:00: 00 04-14 00:00 :00 No TAKE 1 TABLET BY MOUTH 3 TIMES A DAY NEEDED [facility] acetaminoph en-codeine 300-30 mg tablet 02-13 00:00: 00 Yes TAKE BY MOUTH 1 TABLET EVERY 6 HOURS NEEDED FOR PAIN [facility] medroxyPROG ESTERone 5 mg tablet 02-08 00:00: 00 Yes 5mg Take 1 tablet by mouth in the morning. [facility] Diclofenac Sodium 1 % gel 08-09 00:00: 00 Yes [id number] Apply to area(s) 2 (two) times daily as needed for Pain (scale 4-6) (Apply 2 g do not exceed 4 g in a day). [facility] DICLOFENAC 75 mg EC tablet 07-30 00:00: 00 08-30 04:59 :00 No [id number] 9109 75mg TAKE 1 TABLET BY MOUTH 2 (TWO) TIMES DAILY WITH MEALS FOR 30 DAYS. [facility] diclofenac 75 mg EC tablet 18 00:00: 00 07-30 00:00 :00 No [id number] 9109 75mg Take 1 tablet by mouth 2 (two) times daily with meals for 30 days. [facility] ibuprofen 800 mg tablet 2018-05 00:00: 00 Yes [facility] NOVOLOG FLEXPEN U-100 INSULIN 100 unit/mL (3 mL) injection 2018-05 00:00: 00 Yes [facility] amoxicillin -clavulanat e 875-125 mg per tablet 2018-05 00:00: 00 04-14 00:00 :00 No [facility] promethazin e-dextromet horphan 6.25-15 mg/5 mL syrup 2018-05 00:00: 00 04-14 00:00 :00 No [facility] TRULICITY 1.5 mg/0.5 mL PnIj 2018-05 00:00: 00 Yes [facility] losartan 50 mg tablet 2018-05 00:00: 00 Yes [facility] atorvastati n 10 mg tablet 2018-05 00:00: 00 Yes [facility] mg capsule 2018-05 00:00: 00 Yes [facility] LEVEMIR FLEXTOUCH U-100 INSULN 100 unit/mL (3 mL) injection 2018-05 00:00: 00 Yes [facility] LINZESS 145 mcg capsule 2018-05 00:00: 00 Yes [facility] rOPINIRole 1 mg tablet 2018-05 00:00: 00 Yes [facility] preg[facility]alin 75 mg capsule 2018-05 00:00: 00 04-14 00:00 :00 No [facility] orphenadrin e 100 mg SR tablet 2018-05 00:00: 00 Yes [facility] HYDROcodone -acetaminop hen 7.5-325 mg per tablet 2018-05 0 00:00: 00 Yes [facility] Vital Signs Vital Name Observation Time Observation Value Comments S ource Systolic blood pressure 2022-08-12 18:24:00 156 mm[Hg] [place] [facility] Diastolic blood pressure 2022-08-12 18:24:00 76 [facility] Heart [facility] 2022-08-12 18:24:00 107 /min [facility] Respiratory rate 2022-08-12 18:18:00 19 /min [facility] Body height 2022-08-12 18:18:00 154.9 cm [facility] Body weight 2022-08-12 18:18:00 71.396 kg [facility] BMI 2022-08-12 18:18:00 29.74 kg/m2 [facility] Oxygen saturation in Arterial blood by Pulse oximetry 2022-08-12 18:18:00 95 /min [facility] Body height 2022-05-01 14:57:00 152.4 cm [facility] 2022-05-01 14:57:00 68.04 kg [facility] BMI 2022-05-01 14:57:00 29.29 kg/m2 [facility] Systolic blood pressure 2022-04-15 21:39:00 116 mm[Hg] [facility] Diastolic blood pressure 2022-04-15 21:39:00 73 mm[Hg] [facility] Heart rate 2022-04-15 21:39:00 96 /min [facility] Respiratory rate 2022-04-15 21:39:00 19 /min [facility] Body height 2022-04-15 21:39:00 152.4 cm [facility] Body weight 2022-04-15 21:39:00 68.176 kg [facility] BMI 2022-04-15 21:39:00 29.35 kg/m2 [facility] Oxygen saturation in Arterial blood by Pulse oximetry 2022-04-15 21:39:00 95 /min [facility] Systolic blood pressure 2022-02-02 16:09:00 138 mm[Hg] [facility] Diastolic blood pressure 2022-02-02 16:09:00 80 mm[Hg] [facility] Heart rate 2022-02-02 16:09:00 96 /min [facility] 2022-02-02 16:09:00 68.493 kg [facility] BMI 2022-02-02 16:09:00 28.53 kg/m2 [facility] Oxygen saturation in Arterial blood by Pulse oximetry 2022-02-02 16:09:00 96 /min [facility] Systolic blood pressure 2020-05-30 19:19:00 139 mm[Hg] [facility] Diastolic blood pressure 2020-05-30 19:19:00 87 mm[Hg] [facility] Heart rate 2020-05-30 19:17:00 103 /min [facility] Body height 2020-05-30 19:17:00 154.9 cm [facility] Body weight 2020-05-30 19:17:00 65.318 kg [facility] BMI 2020-05-30 19:17:00 27.21 kg/m2 [facility] Systolic blood pressure 2020-05-07 15:32:00 133 mm[Hg] [facility] Diastolic blood pressure 2020-05-07 15:32:00 85 mm[Hg] [facility] Heart rate 2020-05-07 15:29:00 102 /min [facility] Body height 2020-05-07 15:29:00 154.9 cm [facility] Body weight 2020-05-07 15:29:00 68.04 kg [facility] BMI 2020-05-07 15:29:00 28.34 kg/m2 [facility] Systolic blood pressure 2020-04-14 21:42:00 147 mm[Hg] [facility] Diastolic blood pressure 2020-04-14 21:42:00 99 mm[Hg] [facility] Heart rate 2020-04-14 21:42:00 99 /min [facility] Respiratory rate 2020-04-14 21:42:00 24 /min [facility] Oxygen saturation in Arterial blood by Pulse oximetry 2020-04-14 21:42:00 100 /min [facility] Body temperature 2020-04-14 19:28:00 36.56 Vangie [facility] Systolic blood pressure 2020-04-14 18:59:00 128 mm[Hg] [facility] Diastolic blood pressure 2020-04-14 18:59:00 84 mm[Hg] [facility] Heart rate 2020-04-14 18:59:00 102 /min [facility] Body temperature 2020-04-14 18:56:00 36.44 Vangie [facility] Respiratory rate 2020-04-14 18:56:00 18 /min [facility] Body height 2020-04-14 18:56:00 154.9 cm [facility] weight 2020-04-14 18:56:00 64.411 kg [facility] BMI 2020-04-14 18:56:00 26.83 kg/m2 [facility] Oxygen saturation in Arterial blood by Pulse oximetry 2020-04-14 18:56:00 97 /min [facility] Systolic blood pressure 2020-03-26 19:23:00 145 mm[Hg] [facility] Diastolic blood pressure 2020-03-26 19:23:00 90 mm[Hg] [facility] Heart rate 2020-03-26 19:23:00 103 /min [facility] Body height 2020-03-26 19:18:00 154.9 cm [facility] Body weight 2020-03-26 19:18:00 64.411 kg [facility] BMI 2020-03-26 19:18:00 26.83 kg/m2 [facility] Systolic blood pressure 2020-03-20 19:41:00 118 mm[Hg] [facility] Diastolic blood pressure 2020-03-20 19:41:00 74 mm[Hg] [facility] Heart rate 2020-03-20 19:41:00 108 /min [facility] Body height 2020-03-20 19:41:00 154.9 cm [facility] weight 2020-03-20 19:41:00 69.854 kg [facility] BMI 2020-03-20 19:41:00 29.10 kg/m2 [facility] Systolic blood pressure 2020-02-28 18:30:00 132 mm[Hg] [facility] Diastolic blood pressure 2020-02-28 18:30:00 81 mm[Hg] [facility] Heart rate 2020-02-28 18:30:00 105 /min [facility] Body height 2020-02-28 18:30:00 154.9 cm [facility] Body weight 2020-02-28 18:30:00 69.854 kg [facility] BMI 2020-02-28 18:30:00 29.10 kg/m2 [facility] Systolic blood pressure 2020-01-17 20:27:00 150 mm[Hg] [facility] Diastolic blood pressure 2020-01-17 20:27:00 87 mm[Hg] [facility] Respiratory rate 2020-01-17 20:27:00 18 /min [facility] Body height 2020-01-17 20:27:00 154.9 cm [facility] Body weight 2020-01-17 20:27:00 64.411 kg [facility] BMI 2020-01-17 20:27:00 26.83 kg/m2 [facility] Systolic blood pressure 2019-07-12 19:01:00 137 mm[Hg] [facility] Diastolic blood pressure 2019-07-12 19:01:00 82 mm[Hg] [facility] Heart rate 2019-07-12 19:01:00 118 /min [facility] Body height 2019-07-12 19:01:00 154.9 cm [facility] Body weight 2019-07-12 19:01:00 68.947 kg [facility] BMI 2019-07-12 19:01:00 28.72 kg/m2 [facility] Body height 2019-07-04 20:25:00 154.9 cm [facility] Body weight 2019-07-04 20:25:00 68.947 kg [facility] BMI 2019-07-04 20:25:00 28.72 kg/m2 Univ [facility] Systolic blood pressure 2019-06-19 19:35:00 146 mm[Hg] [facility] Diastolic blood pressure 2019-06-19 19:35:00 94 mm[Hg] [facility] Heart rate 2019-06-19 19:35:00 116 /min [facility] Body height 2019-06-19 19:35:00 154.9 cm [facility] Body weight 2019-06-19 19:35:00 68.947 kg [facility] BMI 2019-06-19 19:35:00 28.72 kg/m2 [facility] Procedures Procedure Date / Time Performed Performing Clinician Source DME/SUPPLY JUSTIFICATION 2022-08-12 05:01:00 Doc tor Unassigned, [place] [facility] SLEEP STUDY DATA REPORT 2022-07-27 05:01:00 Doct or Unassigned, [place] [facility] EMG/NCV 2022-07-15 18:09:00 Dieudonne Young [facility] PATIENT FINANCIAL POLICY 2022-07-15 16:29:32 Doctor Unassigned, [place] [facility] URIC ACID 2022-05-01 16:03:00 Dieudonne Young [facility] RHEUMATOID FACTOR 2022-05-01 16:03:00 Dieudonne Young [facility] C-REACTIVE PROTEIN 2022-05-01 16:03:00 Dieudonne Young [facility] SEDIMENTATION RATE 2022-05-01 16:03:00 Dieudonne Young [facility] CBC WITH DIFF 2022-05-01 16:03:00 [facility] ANTI-NUCLEAR ANTIBODY SCREEN 2022-05-01 16:03:00 Dieudonne Young [facility] STREPTOLYSIN O ANTIBODY (ASO) 2022-05-01 16:03:00 Dieudonne Yougn [facility] ANTI-NUCLEAR ANTIBODY-PATHOLOGIST INTERPRETATION 2022-05-01 16:03:00 Dieudonne Young [facility] REFERRAL- REQUEST/RESPONSE 2022-01-21 05:01:00 Doctor Unassigned, [place] [facility] XR CERVICAL SPINE 2 VW 2021-10-29 17:12:49 Marietta Flynn [facility] ASSIGNMENT OF BENEFITS 2021-10-29 16:45:37 Docto r Unassigned, [place] [facility] XR CERVICAL SPINE 2 VW 2020-10-07 20:11:47 Marietta Flynn [facility] XR KNEE <3 VW RIGHT 2020-10-07 20:11:47 Marietta Flynn [facility] EXTERNAL PROVIDER RECORDS 2020-07-24 06:01:00 Do ctor Unassigned, [place] [facility] EXTERNAL PROVIDER RECORDS 2020-05-27 06:01:00 Do ctor Unassigned, [place] [facility] XR LUMBAR SPINE 5 VW 2020-05-07 16:12:20 Rosie Jean [facility] LACTIC ACID WHOLE BLOOD 2020-04-14 20:56:00 Yeison Santana [facility] CT ABDOMEN PELVIS W CONTRAST 2020-04-14 20:50:23 Ivory Santana [facility] LIPASE 2020-04-14 20:00:00 Su Jenkins [facility] TROPONIN I 2020-04-14 20:00:00 Ivory Santana [facility] COMP. METABOLIC PANEL ([id number]) 2020-04-14 20:00:00 Su Jenkins [facility] CBC WITH DIFF 2020-04-14 20:00:00 Su Jenkins [facility] GLYCOSYLATED HEMOGLOBIN (A1C) 2020-04-14 20:00:00 Ivory Santana [facility] URINALYSIS 2020-04-14 20:00:00 Su Jenkins [facility] POCT TEST 2020-04-14 20:00:00 Su Jenkins [facility] NOTICE OF PRIVACY PRACTICES 2020-04-14 19:18:40 Doctor Unassigned, [place] [facility] CONSENT/REFUSAL FOR DIAGNOSIS AND TREATMENT 2020-04-14 19:18:25 Doctor Unassigned, [place] [facility] NON [facility] DOCUMENTATION 2020-02-14 05:01:00 Doctor Unassigned, [place] [facility] EKG-12 LEAD 2020-02-07 16:21:49 Doctor Unass igned, [place] [facility] XR CHEST 1 VW 2020-02-07 15:19:01 Rosie Jean [facility] DSU PRE-OP 2020-01-17 05:01:00 Doctor Unass igned, [place] [facility] EXTERNAL MAMMOGRAM 2019-08-01 00:00:00 Doctor Un assigned, [place] [facility] NON [facility]AC[facility] DOCUMENTATION 2019-06-28 06:01:00 Doctor Unassigned, [place] [facility] [facility] CHEST 2 VW 2019-06-22 20:21:12 [facility] Start Date/Time End Date/Time Encounter Type Admission Type [facility] Care Department Encounter ID Source 2021-03-15 08:02:44 Emergency [facility] [id number] [facility] 2023-07-03 00:00:00 2023-07-03 00:00:00 Outpatient GC_GCBZW_Ka diyala_S PRIV PRIV [id number] [facility] 2023-06-05 00:00:00 2023-06-05 00:00:00 Outpatient GC_GCBZW_Ka diyala_S PRIV PRIV [id number] [facility] 2023-05-08 00:00:00 2023-05-08 00:00:00 Outpatient GC_GCBZW_Ka diyala_S PRIV PRIV [id number] [facility] 2023-04-30 00:00:00 2023-04-30 00:00:00 Outpatient GC_GCBZW_Ka diyala_S PRIV PRIV [id number] [facility] 2022-08-13 00:00:00 2022-08-13 00:00:00 Telephone Kristofer Humphrey [facility] 1.2.840.114 350.1.13.10 4.2.7.2.686 [id number] [facility] 2022-08-12 14:00:00 2022-08-12 14:30:00 Office Visit Kristofer Humphrey [facility] 1.2.840.114 350.1.13.10 4.2.7.2.686 [id number] [facility] 2022-08-12 14:00:00 2022-08-12 13:37:56 Outpatient R ATANASKRISTOFER DE LUNA STRAHIL [facility] [id number] [facility] 2022-08-12 00:00:00 2022-08-12 00:00:00 Tele[address] JontangKristofer de luna [facility] 1.2.840.114 350.1.13.10 4.2.7.2.686 [id number] [facility] 2022-08-12 00:00:00 2022-08-12 00:00:00 Telephone [facility]ondhiraj [facility] [place] [facility] 1.2.840.114 350.1.13.10 4.2.7.2.686 [id number] [id number] [facility] 2022-08-12 00:00:00 2022-08-12 00:00:00 Orders Only Doctor Unassigned, Strawberry [facility] 1.2840.114 350.1.13.10 4.2.7.2.686 [id number] [id number] [facility] 2022-07-27 20:00:00 2022-07-27 22:30:00 Assistant Golf Professional Visit 1, [facility] JontangKristofer de luna [facility] 1.2840.114 350.1.13.10 4.2.7.2.686 [id number] [facility] 2022-07-27 20:00:00 2022-07-27 20:00:00 Outpatient R JONTANGKRISTOFER DE LUNA STRASCMiky [facility] [id number] [facility] 2022-07-27 00:00:00 2022-07-27 00:00:00 Orders Only Doctor Unassigned, Strawberry [facility] 1.2840.114 350.1.13.10 4.2.7.2.686 [id number] [id number] [facility] 2022-07-15 10:29:24 2022-07-15 23:59:00 [id number] 2022-07-15 10:29:24 2022-07-15 23:59:00 Hospital Encounter Dennis Elliott [facility] 1..840.114 350.1.13.10 4.2.7.2.686 [id number] [facility] 2022-05-12 11:00:59 2022-05-12 23:59:00 Outpatient R MARICRUZ [facility] [id number] [facility] 2022-05-12 11:00:59 2022-05-12 23:59:00 [facility] 1..840.114 350.1.13.10 4.2.7.2.686 [id number] [facility] 2022-05-05 00:00:00 2022-05-05 00:00:00 Telephone Team, [facility] 1.2.840.114 350.1.13.10 4.2.7.2.686 [id number] [facility] 2022-05-01 09:30:00 2022-05-01 09:46:14 Outpatient R DIEUDONNE YOUNG [facility] [id number] [facility] 2022-05-01 09:30:00 2022-05-01 09:46:14 Assistant Golf Professional Visit Lab, Ang - Db Dieudonne Young [facility] 1.2.840.114 350.1.13.10 4.2.7.2.686 [id number] [facility] 2022-05-01 09:00:00 2022-05-01 09:13:38 Office Visit Dieudonne Young [facility] 1.2.840.114 350.1.13.10 4.2.7.2.686 [id number] [facility] 2022-04-15 16:30:00 2022-04-15 17:00:00 Office Visit Valarie Humphreyhebert Bowman [facility] 1.2.840.114 350.1.13.10 4.2.7.2.686 [id number] [facility] 2022-04-15 16:30:00 2022-04-15 16:30:00 Outpatient R KRISTOFER HUMPHREY STRASCMiky [facility] [id number] [facility] 2022-03-18 11:00:00 2022-03-18 11:00:00 Outpatient R KRISTOFER HUMPHREY STRASCMiky [facility] [id number] [facility] 2022-03-16 00:00:00 2022-03-16 00:00:00 Telephone Kristofer uHmphrey [facility] 1.2.840.114 350.1.13.10 4.2.7.2.686 [id number] [id number] [facility] 2022-02-13 00:00:00 2022-02-13 00:00:00 Outpatient R RADIOLOGY [facility] [id number] [facility] 2022-02-02 12:00:00 2022-02-02 12:15:00 Assistant Golf Professional Visit Pob, Adc Lab Main Abbe Castillo [facility] 1.2.840.114 350.1.13.10 4.2.7.2.686 [id number] [facility] 2022-02-02 11:00:00 2022-02-02 11:29:23 Outpatient DMITRY ANN HOWARD [facility] [id number] [facility] 2022-02-02 11:00:00 2022-02-02 11:29:23 [facility] 1.2114 350.1.13.10 4.2.7.2.686 [id number] [facility] 2022-01-21 00:00:00 2022-01-21 00:00:00 Orders Only Doctor Unassigned, Strawberry [facility] 1..114 350.1.13.10 4.2.7.2.686 [id number] [id number] [facility] 2021-10-29 11:49:28 2021-10-29 23:59:00 Outpatient R JONATHAN ABBE [facility] [id number] [facility] 2021-10-29 11:45:00 2021-10-29 23:59:00 Hospital Encounter Abbe Castillo [facility] 1..114 350.1.13.10 4.2.7.2.686 [id number] [facility] 2021-10-29 00:00:00 2021-10-29 00:00:00 Orders Only Doctor Unassigned, Strawberry [facility] 1..114 350.1.13.10 4.2.7.2.686 [id number] [id number] [facility] 2021-01-23 00:00:00 2021-01-23 00:00:00 Telephone Komal Medel 1.2.114 350.1.13.10 4.2.7.2.686 [id number] [facility] 2020-10-07 14:45:00 2020-10-07 23:59:00 Hospital Encounter Marietta Flynn [facility] 1.2.114 350.1.13.10 4.2.7.2.686 [id number] [id number] [facility] 2020-10-07 00:00:00 2020-10-07 00:00:00 Outpatient Gabriel MARIETTA FLYNN [facility] [id number] [facility] 2020-07-24 00:00:00 2020-07-24 00:00:00 Orders Only Doctor Unassigned, Strawberry [facility] 1.2840.114 350.1.13.10 4.2.7.2.686 [id number] [id number] [facility] 2020-05-30 13:45:00 2020-05-30 13:45:00 Outpatient DIEUDONNE BOYCE [facility] [id number] [facility] 2020-05-30 13:01:34 2020-05-30 13:40:25 Office Visit Dieudonne Young [facility] 1.2840.114 350.1.13.10 4.2.7.2.686 [id number] [facility] 2020-05-28 11:00:00 2020-05-28 11:00:00 Outpatient JASMINE PERRY [facility] [id number] [facility] 2020-05-28 00:00:00 2020-05-28 00:00:00 Letter (Out) Doctor Unassigned, Strawberry [facility] 1.2840.114 350.1.13.10 4.2.7.2.686 [id number] [facility] 2020-05-27 15:00:00 2020-05-27 15:00:00 Outpatient DIEUDONNE BOYCE [facility] [id number] [facility] 2020-05-27 00:00:00 2020-05-27 00:00:00 Orders Only Doctor Unassigned, Strawberry [facility] 1.2840.114 350.1.13.10 4.2.7.2.686 [id number] [id number] [facility] 2020-05-14 00:00:00 2020-05-14 00:00:00 Telephone Ted [facility] josselin Velásquez 1.2.840.114 350.1.13.10 4.2.7.2.686 [id number] [facility] 2020-05-07 09:59:38 2020-05-07 23:59:00 Hospital Encounter Ted [facility] 1.2.840.114 350.1.13.10 4.2.7.2.686 [id number] [facility] 2020-05-07 10:00:00 2020-05-07 10:00:00 Outpatient R TED [facility] [id number] [facility] 2020-05-07 09:25:12 2020-05-07 09:54:42 Office Visit Ted [facility] josselin Velásquez 1.2.840.114 350.1.13.10 4.2.7.2.686 [id number] [facility] 2020-05-06 00:00:00 2020-05-06 00:00:00 Telephone Ted [facility] josselin Velásquez 1.2.840.114 350.1.13.10 4.2.7.2.686 [id number] [facility] 2020-05-03 14:30:00 2020-05-03 14:30:00 Outpatient ASHA MONTERO [facility] [id number] [facility] 2020-05-02 12:00:00 2020-05-02 12:00:00 Outpatient DIEUDONNE BOYCE [facility] [id number] [facility] 2020-04-14 13:38:00 2020-04-14 17:04:00 Emergency Ivory Santana [facility] 1.2.840.114 350.1.13.10 4.2.7.2.686 [id number] [facility] 2020-04-14 12:52:12 2020-04-14 13:27:33 Urgent Care Provider, [facility] 1.2840.114 350.1.13.10 4.2.7.2.686 [id number] [id number] [facility] 2020-04-14 13:20:00 2020-04-14 13:20:00 Outpatient Gabriel [facility] [id number] [facility] 2020-04-14 00:00:00 2020-04-14 00:00:00 Letter (Out) Doctor Unassigned, Strawberry [facility] 1.2840.114 350.1.13.10 4.2.7.2.686 [id number] [facility] 2020-04-14 00:00:00 2020-04-14 00:00:00 Orders Only Doctor Unassigned, Strawberry [facility] 1.20.114 350.1.13.10 4.2.7.2.686 [id number] [id number] [facility] 2020-03-26 12:56:41 2020-03-26 13:11:41 Office Visit [facility] 1.20.114 350.1.13.10 4.2.7.2.686 [id number] [facility] 2020-03-26 13:00:00 2020-03-26 13:00:00 Outpatient R ROSIE JEAN [facility] [id number] [facility] 2020-03-26 00:00:00 2020-03-26 00:00:00 Telephone Dieudonne [facility] 1.20.114 350.1.13.10 4.2.7.2.686 [id number] 198 [id number] [facility] 2020-03-20 16:15:00 2020-03-20 16:15:00 Outpatient R YOUNGTERESAIG [facility] [id number] [facility] 2020-03-20 13:05:00 2020-03-20 13:20:00 Office Visit Rosie Jean Dieudonne Young [facility] josselin Velásquez 1.2.840.114 350.1.13.10 4.2.7.2.686 [id number] 198 [id number] [facility] 2020-03-07 00:00:00 2020-03-07 00:00:00 Telephone Rosie [facility] josselin Velásquez 1.2.840.114 350.1.13.10 4.2.7.2.686 [id number] [facility] 2020-02-28 13:45:00 2020-02-28 13:45:00 Outpatient R ROSIE JEAN [facility] [id number] [facility] 2020-02-28 13:17:47 2020-02-28 13:32:47 Office Visit Rosie Jean [facility] josselin Velásquez 1.2.840.114 350.1.13.10 4.2.7.2.686 [id number] [facility] 2020-02-15 00:00:00 2020-02-15 00:00:00 Telephone Dieudonne Young [facility] josselin Velásquez 1.2.840.114 350.1.13.10 4.2.7.2.686 [id number] [facility] 2020-02-14 10:39:00 2020-02-14 23:59:00 Hospital Encounter Dieudonne Young [facility] 1.2.840.114 350.1.13.10 4.2.7.2.686 [id number] [id number] [facility] 2020-02-14 00:00:00 2020-02-14 00:00:00 Outpatient DIEUDONNE BOYCE [facility] [id number] [facility] 2020-02-14 00:00:00 2020-02-14 00:00:00 Orders Only Doctor Unassigned, Strawberry [facility] 1.2840.114 350.1.13.10 4.2.7.2.686 [id number] [id number] [facility] 2020-02-07 09:38:26 2020-02-07 23:59:00 Hospital Encounter Rosie Jean [facility] 1.2.114 350.1.13.10 4.2.7.2.686 [id number] [facility] 2020-02-07 09:37:58 2020-02-07 09:52:58 Assistant Golf Professional Visit Pob, Adc Lab Main Dieudonne Young [facility] 1.2.114 350.1.13.10 4.2.7.2.686 [id number] [facility] 2020-02-07 09:30:00 2020-02-07 09:30:00 Outpatient DIEUDONNE BOYCE [facility] [id number] [facility] 2020-01-29 00:00:00 2020-01-29 00:00:00 Telephone Dieudonne Young [facility] josselin Velásquez 1.284.114 350.1.13.10 4.2.7.2.686 [id number] [facility] 2020-01-17 15:06:02 2020-01-17 15:45:55 Office Visit Rosie [facility] josselin Velásquez 1.2.114 350.1.13.10 4.2.7.2.686 [id number] [facility] 2020-01-17 15:15:00 2020-01-17 15:15:00 Outpatient DIEUDONNE BOYCE [facility] [id number] [facility] 2020-01-17 00:00:00 2020-01-17 00:00:00 Orders Only Doctor Unassigned, Strawberry [facility] 1.2.840.114 350.1.13.10 4.2.7.2.686 [id number] [id number] [facility] 2019-09-28 08:45:00 2019-09-28 08:45:00 Outpatient R DIEUDONNE YOUNG [facility] [id number] [facility] 2019-09-22 00:00:00 2019-09-22 00:00:00 Telephone Dieudonne Young [facility] josselin Velásquez 1.2.840.114 350.1.13.10 4.2.7.2.686 [id number] [facility] 2019-08-30 08:01:54 2019-08-30 15:38:48 Telemedici ne Visit Sherry gallagher [facility] 1..840.114 350.1.13.10 4.2.7.2.686 [id number] [facility] 2019-08-30 12:00:00 2019-08-30 12:00:00 Outpatient Gabriel Gallagher [facility] [id number] [facility] 2019-08-10 14:15:00 2019-08-10 14:15:00 Outpatient ROSIE AWAD [facility] [id number] [facility] 2019-08-10 11:18:10 2019-08-10 11:33:10 Telemedici ne Visit Rosie Jean [facility] Surgical Specialedgar Velásquez 1.2.840.114 350.1.13.10 4.2.7.2.686 [id number] [facility] 2019-07-27 00:00:00 2019-07-27 00:00:00 [facility] 1.2.840.114 350.1.13.10 4.2.7.2.686 [id number] [facility] 2019-07-12 13:15:00 2019-07-12 13:15:00 Outpatient R TED [facility] [id number] [facility] 2019-07-12 12:42:26 2019-07-12 12:57:26 Office Visit Ted [facility] Special josselin Pierreton 1.2.840.114 350.1.13.10 4.2.7.2.686 [id number] [facility] 2019-07-04 14:24:47 2019-07-04 14:39:47 Office Visit Ted [facility] Special josselin Hamlin 1.2.840.114 350.1.13.10 4.2.7.2.686 [id number] [facility] 2019-06-28 10:28:33 2019-06-28 23:59:00 Hospital Encounter Dieudonne Young [facility] 1.2.840.114 350.1.13.10 4.2.7.2.686 [id number] [facility] 2019-06-28 00:00:00 2019-06-28 00:00:00 Outpatient R DIEUDONNE YOUNG [facility] [id number] [facility] 2019-06-28 00:00:00 2019-06-28 00:00:00 Orders Only Doctor Unassigned, Strawberry [facility] 1.2.840.114 350.1.13.10 4.2.7.2.686 [id number] [facility] 2019-06-27 00:00:00 2019-06-27 00:00:00 Telephone Dieudonne Young [facility] josselin Hamlin 1.2.840.114 350.1.13.10 4.2.7.2.686 [id number] [facility] 2019-06-22 13:49:06 2019-06-22 14:04:06 Assistant Golf Professional Visit Pob, Adc Lab Main [facility]ud[facility] 1.284.114 350.1.13.10 4.2.7.2.686 [id number] [facility] 2019-06-22 14:17:53 2019-06-22 13:51:00 Outpatient R DIEUDONNE YOUNG [facility] [id number] [facility] 2019-06-22 13:50:00 2019-06-22 13:51:00 Hospital Encounter Dieudonne Young [facility] 1.284.114 350.1.13.10 4.2.7.2.686 [id number] [facility] 2019-06-20 00:00:00 2019-06-20 00:00:00 Telephone Dieudonne [facility] 1.2.840.114 350.1.13.10 4.2.7.2.686 [id number] [facility] 2019-06-19 13:29:29 2019-06-19 14:48:14 Office Visit Rosie [facility] 1.2.840.114 350.1.13.10 4.2.7.2.686 [id number] [facility] 2019-05-30 09:26:57 2019-05-30 23:59:00 Outpatient DMITRY ANN HOWARD [facility] [id number] [facility] Results Test Description Test Time Test Comments Results Result Comments Source ANTI-NUCLEAR ANTIBODY-PATHOLOGI ST INTERPRETATION 22:52:25 REA - Pathologist InterpretationANA HEp-2 IIFA Pathologist Interpretation Report Patient Name: Cesia Velez ? ?Antinuclear Antibody (REA) Test (Anti-Cell Antibodies Test) Indirect Immunofluorescence Assay on HEp-2 Cells Screening titer: 1:80 (adults, > 18 years old), 1:40 (pediatrics, <= 18 years old)?Result: The antinuclear antibody (REA) screen is negative on interpretation. Remarks:This patient has a negative antinuclear antibody (REA) screening test. This suggests that the patient likely does not have a systemic autoimmune rheumatic disease that is strongly associated with a positive REA, such as systemic lupus erythematosus (REA positive in ~95-100%), systemic sclerosis (REA positive in ~60-80%), or the following disorders in which REA positivity is part of the diagnostic criteria: drug-induced lupus, autoimmune hepatitis, or mixed connective tissue disease. However, the REA may be negative in rare cases of systemic lupus erythematosus and systemic sclerosis. The REA may also be negative in ~20% of patients presenting with autoimmune hepatitis. Additionally, REA positivity is less sensitive in the diagnosis of Sjogren's syndrome (~40-70%) and dermatomyositis/polym yositis (~30-80%). REA is not useful for the diagnosis of rheumatoid arthritis, multiple sclerosis, idiopathic thrombocytopenic purpura, thyroid disease, discoid lupus, or fibromyalgia. (https://pubmed.ncbi. nlm.nih.gov/73475842/ , https://pubmed.ncbi.n lm.nih.gov/43374698/) ? ? Therefore, a diagnosis cannot be based exclusively on REA detection and/or pattern and thus should be made via the integration of patient history, physical exam findings, and other diagnostic tests as clinically indicated. Lily Torres MD ?05/05/2022 ?4:52 PM05/05/2022 4:52 PM [facility] Hospital[facility]REPTOLYSIN O ANTIBODY (ASO)2022-05-05 18:11:45* Test Item Value Reference Range Interpretation Comme nts ASO (test code = 5370-2) <55 See_Comment REFERENCE INTERV AL: Streptolysin O Antibody Access complete set of age- and/or gender-specific reference intervals for this test in the [facility] Test Directory ([employer]).Performed By: [facility] [place] [address] [id number] Director: Sammy Jansen MD, PhD [Automated message] The system which generated this result transmitted reference range: 0 - 330 IU/mL. The reference range was not used to interpret this result as normal/abnormal. [facility]-REACTIVE [id number] 14:51:43* Test Item Value Reference Range Interpretation Comme nts CRP (test code = 8969314564) 0.1 mg/dL See_Comment [Automated messa ge] The system which generated this result transmitted reference range: <=0.8. The reference range was not used to interpret this result as normal/abnormal. Lab Interpretation (test code = 40773-3) [facility] [id number] 14:49:34* Test Item Value Reference Range Interpretation Comme nts RF (test code = 1958522991) See_Comment [Automated messa ge] The system which generated this result transmitted reference range: <20 IU/mL. The reference range was not used to interpret this result as normal/abnormal. Lab Interpretation (test code = 12702-8) Normal [facility] Center[facility]EDIMENTATION [id number] 23:05:59* Test Item Value Reference Range Interpretation Comme nts ESR (test code = 93175-1) See_Comment H [Automated messa ge] The system which generated this result transmitted reference range: 0 - 20 mm/HR. The reference range was not used to interpret this result as normal/abnormal. Lab Interpretation (test code = 68207-5) Abnormal [facility] WITH [id number] 21:46:01* Test Item Value Reference Range Interpretation Comme nts WBC (test code = 6690-2) See_Comment [Automated messa ge] The system which generated this result transmitted reference range: 4.30 - 11.10 10*3/?L. The reference range was not used to interpret this result as normal/abnormal. RBC (test code = 789-8) See_Comment [Automated messa ge] The system which generated this result transmitted reference range: 3.93 - 5.25 10*6/?L. The reference range was not used to interpret this result as normal/abnormal. HGB (test code = 718-7) 13.1 g/dL 11.6-15.0 HCT (test code = 4544-3) 40.0 % 35.7-45.2 MCV (test code = 787-2) 91.3 fL 80.6-95.5 MCH (test code = 785-6) 29.9 pg 25.9-32.8 MCHC (test code = 786-4) 32.8 g/dL 31.6-35.1 RDW-SD (test code = 04206-3) 40.0 fL 39.0-49.9 RDW-CV (test code = 788-0) 11.9 % 12.0-15.5 L PLT (test code = 777-3) See_Comment [Automated messa ge] The system which generated this result transmitted reference range: 166 - 358 10*3/?L. The reference range was not used to interpret this result as normal/abnormal. MPV (test code = 53566-2) 11.0 fL 9.5-12.9 NRBC/100 WBC (test code = 6044127855) See_Comment [Automated [employer] ssage] The system which generated this result transmitted reference range: 0.0 - 10.0 /100 WBCs. The reference range was not used to interpret this result as normal/abnormal. NRBC x10^3 (test code = 9795703963) See_Comment [Automated [employer]] The system which generated this result transmitted reference range: 10*3/?L. The reference range was not used to interpret this result as normal/abnormal. GRAN MAT (NEUT) % (test code = 770-8) 47.3 % IMM GRAN % (test code = 7896653738) 0.60 % LYMPH % (test code = 736-9) 40.3 % MONO % (test code = 5905-5) 8.2 % EOS % (test code = 713-8) 3.0 % BASO % (test code = 706-2) 0.6 % GRAN MAT x10^3(ANC) (test code = 3417184568) 2.95 10*3/uL 1.88-7.09 IMM GRAN x10^3 (test code = 8477454028) 0.04 10*3/uL 0.00-0.06 LYMPH x10^3 (test code = 731-0) 2.52 10*3/uL 1.32-3.29 MONO x10^3 (test code = 742-7) 0.51 10*3/uL 0.33-0.92 EOS x10^3 (test code = 711-2) 0.19 10*3/uL 0.03-0.39 BASO x10^3 (test code = 704-7) 0.04 10*3/uL 0.01-0.07 Lab Interpretation (test code = 24745-9) Abnormal [facility] [id number] 21:46:01* Test Item Value Reference Range Interpretation Comme nts URIC ACID (test code = 0797454881) 3.8 mg/dL 2.9-6.0 Lab Interpretation (test cod e = 73940-7) [facility] VW [id number] 20:31:201. No fracture or dislocation of the right knee.2. Degenerative patellofemoral osteoarthritis. RL: ?6200 End of Report ORDERING PHYSICIAN: ?MARIETTA FLYNN HISTORY: ?Cervicalgia, right knee pain STUDY: XR KNEE <3 VW RIGHT Technical Quality: Adequate TECHNIQUE: ?2 views of the right knee Exam was performed according to ALARA (As Low As Reasonably Achievable)dose principles. COMPARISON: None DATE: ?10/07/2020 2:47 PM FINDINGS: ? No fracture, dislocation, or other acute osseous abnormalityofthe right knee. Mild degenerative patellofemoral joint disease. No jointeffusion. No soft tissue d isruption. [facility], Radiant Results Inft User - 10/07/2020 [...] fracture or dislocation of the right knee.2. Degen erative patellofemoral osteoarthritis.RL: 6200End of Report [facility] Center[facility] CERVICAL SPINE 2 [id number] 20:31:10Multilevel spondylosis without evidence of acute fracture lines. RL: 6200 CLINICAL HISTORY: Cervicalgia COMPARISON:none TECHNIQUE:XR CERVICALSPINE 2 VW performed. Technical Quality: Adequate FINDINGS:There are no appreciable vertebral body compressions or subluxations. ?Noappreciable fracture lines. There is multilevel degenerative disc disease,with disc space narrowing, marginal osteophytes, and endplate sclerosis.This is most severe at C5-C6 and C6-C7. No prevertebral soft tissueswelling. [facility], Radiant Results Inft User - 13:32 PM CDTCLINICAL HISTORY: Cervicalgia COMPARISON:noneTECHNIQUE:XR CERVICAL SPINE 2 VW performed. Technical Quality: AdequateFINDINGS:There are no appreciable vertebral body compressions or subluxations. Noappreciable fracture lines. There is multilevel degenerative disc disease,with disc space narrowing, marginal osteophytes, and endplate sclerosis.This is most severe at C5-C6 and C6-C7. No prevertebral soft tissueswelling.IMPRESSIONMultilevel spondylosis without evidence of acute fracture lines.RL: 6200 [facility] [id number] 16:15:12 HISTORY: ?Low back pain. FINDINGS: AP, lateral, 2 oblique and spot views [...] aorta.. CONCLUSIONS: Mild lower 3 lumbar levels facetarthritis. [facility], Radiant Results Inft User - 05/07/2020 10:16 AM CSTHISTORY: Low back pain.FINDINGS: AP, lateral, 2 oblique and spot views of the lumbar spines showed5 lumbar vertebrae with no acute c ompression fracture or dislocation. Nosignificant narrowing of the disc spaces or degenerative changes detected.Mild lower 3 lumbar levels facet arthritis noted.Incidental note of cholecystectomy clips in the right upper abdomen andFocal atherosclerotic calcification in the infrarenal segment of theabdominal aorta..CONCLUSIONS: Mild lower 3 lumbar levels facet arthritis.[facility] CenterCT ABDOMEN PELVIS W [id number] 22:40:111. ?Underdistention versus wall thickening involving the distal sigmoidcolon. [...] cc's IV Omnipaque 350. COMPARISON: None FINDINGS: LOWERTHORAX: The lung bases are clear.. No pericardial effusion. LIVER: Mildly enlarged measuring 22 cm in craniocaudal dimension withdiffuse hypoattenuation and normal contour.. GALLBLADDER & BILIARY TREE: The gallbladder is surgically absent. PANCREAS: No focal lesion or ductal dilation. SPLEEN: No splenomegaly. ADRENALS: No adrenal nodules. KIDNEYS: Symmetric enhancement. No hydronephrosis, focal lesion or stones. PELVIS/BLADDER: The bladder is unremarkable. Anteverted mildly enlargeduterus re lative to age with prominence of the bilateral ovarian and uterineveins. No suspicious adnexal masses. GASTROINTESTINAL: No evidence of bowel obstruction. A few descending andsigmoid colonic diverticula are noted without diverticulitis.Underdistention versus wall thickening involving the distal sigm oid colon(4:76). The appendix is normal (4:54). PERITONEUM/RETROPERITONEUM: No free air or fluid. VASCULAR: ?Atherosclerotic [...] descending andsigmoid colonic diverticula are noted without diverticulitis.Underdistention versus wall thickeninginvolving the distal sigmoid colon(4:76). The appendix is normal (4:54). PERITONEUM/RETROPERITONEUM: No free air or fluid.VASCULAR: Atherosclerotic calcifications are seen in the abdominal aortaand its branches. LYMPHATICS: No enlarged lymph nodes by CT size criteria.BONES AND SOFT TISSUES: No concerning bony lesion identified. IMPRESSION1. Underdistention versus wall thickening involving the distal sigmoidcolon. Findings could reflect infectious or inflammatory colitis.2. Mild colonic diverticulosis without evidence of diverticulitis.3. Mildly prominent uterus with engorgement of the ovarianand uterinevessels suspicious for pelvic congestion syndrome in the appropriateclinical setting.4. Hepatomegaly with steatosis.Preliminary Report Dictated by Resident: Tony Izaguirre MD., have reviewed this study and agree with the abovereport.[facility] Lactic Acid Whole [id number] 21:34:00* Test Item Value Reference Range Interpretation Comme nts LACTIC ACID (test code = 6115694414) 1.17 mmol/L [facility] CenterTROPONIN [id number] 21:30:00* Test Item Value Reference Range Interpretation Comme nts TROPONIN I (test code = 4277414583) <0.012 See_Comment [Automated message] The system which generated this result transmitted reference range: <=0.034 ng/mL. The reference range was not used to interpret this result as normal/abnormal. WILFRID (test code = WILFRID) Equal or Less than 0.034 ng/ml---Normal ?Note: Cardiac troponin begins to [...] patient's use of biotin. ? Lab Interpretation (test code = 70909-3) Normal [facility] CenterGLYCOSYLATED HEMOGLOBIN (A1C)2020-04-14 21:12:00* Test Item Value Reference Range Interpretation Comme nts HGB A1C (test code = 4548-4) 11.2 % 4-6 H WILFRID (test code = WILFRID) %A1C (NGSP) Interpretation (ADA)4.8-5.6 ? ? Normal or (Non-Diabetic Range)5.7-6.4 ? ? Increased Risk (Pre-Diabetic)>6.5 ?Diabetes Indicated Lab Interpretation (test code = 31478-9) Abnormal [facility] CenterUrinalysis2020-11-29 20:30:00* Test Item Value Reference Range Interpretation Comme nts APPEARANCE (test code = 7467031652) Clear Clear COLOR (test code = 7073131105) Yellow Yellow PH (test code = 8112556706) 4.8-8.0 SP GRAVITY (test code = 6798450694) 1.003-1.030 H GLU U QUAL (test code = 7128024614) 500 mg/dL Normal A BLOOD (test code = 0448245983) 1+ Negative A KETONES (test code = 8228263764) 5 mg/dL Negative A PROTEIN (test code = 2887-8) Negative Negative UROBILIN (test code = 6397803501) Normal Normal BILIRUBIN (test code = 4270974133) Negative Negative NITRITE (test code = 4926460472) Negative Negative LEUK LY (test code = 9386416632) Negative Negative RBC/HPF (test code = 6804599375) See_Comment H [Automated [employer]] The system which generated this result transmitted reference range: 0 - 3 HPF. The reference range was not used to interpret this result as normal/abnormal. WBC/HPF (test code = 8948311115) See_Comment [Automated [employer]] The system which generated this result transmitted reference range: 0 - 5 HPF. The reference range was not used to interpret this result as normal/abnormal. BACTERIA (test code = 7356242501) Negative Negative SQ EPITH (test code = 0426985903) HPF Lab Interpretation (test code = 60944-3) Abnormal [facility] CenterComplete Metabolic [id number] 20:22:00* Test Item Value Reference Range Interpretation Comme nts NA (test code = 1375290609) 135 mmol/L 135-145 K (test code = 3298352136) 4.1 mmol/L 3.5-5 CL (test code = 3384877922) 98 mmol/L 98-108 CO2 TOTAL (test code = 1413229842) 30 mmol/L 23-31 AGAP (test code = 9501825378) 2-16 BUN (test code = 1586641265) 13 mg/dL 7-23 GLUCOSE (test code = 4809053911) 349 mg/dL 70-110 H CREATININE (test code = 8206115652) 0.51 mg/dL 0.5-1.04 TOTAL BILI (test code = 6537700310) 0.6 mg/dL 0.1-1.1 CALCIUM (test code = 4984889922) 9.3 mg/dL 8.6-10.6 T PROTEIN (test code = 2048043304) 7.4 g/dL 6.3-8.2 ALBUMIN (test code = 6428747212) 4.1 g/dL 3.5-5 ALK PHOS (test code = 8187012257) 109 U/L 34-122 ALTv (test code = 1742-6) 18 U/L 5-35 AST(SGOT) (test code = 6144770848) 19 U/L 13-40 eGFR Calculation (Non-) (test code = 9564433897) mL/min/1.73m2 eGFR Calculation () (test code = 4275490715) mL/min/1.73m2 WILFRID (test code = WILFRID) Association of [...] or abnormalities in imaging tests). Lab Interpretation (test code = 85347-6) Abnormal [facility] CenterLipase, [id number] 20:21:00* Test Item Value Reference Range Interpretation Comme nts LIPASE (test code = 9339836845) 459 U/L 0-220 H Lab Interpretation (test cod e = 24349-5) Abnormal [facility] with [id number] 20:09:00* Test Item Value Reference Range Interpretation Comme nts WBC (test code = 6690-2) See_Comment [Automated messa ge] The system which generated this result transmitted reference range: 4.30 - 11.10 10*3/?L. The reference range was not used to interpret this result as normal/abnormal. RBC (test code = 789-8) See_Comment [Automated messa ge] The system which generated this result transmitted reference range: 3.93 - 5.25 10*6/?L. The reference range was not used to interpret this result as normal/abnormal. HGB (test code = 718-7) 13.5 g/dL 11.6-15 HCT (test code = 4544-3) 38.4 % 35.7-45.2 MCV (test code = 787-2) 85.5 fL 80.6-95.5 MCH (test code = 785-6) 30.1 pg 25.9-32.8 MCHC (test code = 786-4) 35.2 g/dL 31.6-35.1 H RDW-SD (test code = 24379-2) 37.3 fL 39-49.9 L RDW-CV (test code = 788-0) 11.9 % 12-15.5 L PLT (test code = 777-3) See_Comment [Automated messa ge] The system which generated this result transmitted reference range: 166 - 358 10*3/?L. The reference range was not used to interpret this result as normal/abnormal. MPV (test code = 09314-4) 11.1 fL 9.5-12.9 NRBC/100 WBC (test code = 2950607330) See_Comment [Automated [employer] ssage] The system which generated this result transmitted reference range: 0.0 - 10.0 /100 WBCs. The reference range was not used to interpret this result as normal/abnormal. NRBC x10^3 (test code = 7004379832) <0.01 See_Comment [Automated messa ge] The system which generated this result transmitted reference range: 10*3/?L. The reference range was not used to interpret this result as normal/abnormal. GRAN MAT (NEUT) % (test code = 770-8) 57.1 % IMM GRAN % (test code = 3315687708) 0.50 % LYMPH % (test code = 736-9) 33.7 % MONO % (test code = 5905-5) 6.7 % EOS % (test code = 713-8) 1.7 % BASO % (test code = 706-2) 0.3 % GRAN MAT x10^3(ANC) (test code = 2605724951) 4.45 10*3/uL 1.88-7.09 IMM GRAN x10^3 (test code = 5988273028) 0.04 10*3/uL 0-0.06 LYMPH x10^3 (test code = 731-0) 2.62 10*3/uL 1.32-3.29 MONO x10^3 (test code = 742-7) 0.52 10*3/uL 0.33-0.92 EOS x10^3 (test code = 711-2) 0.13 10*3/uL 0.03-0.39 BASO x10^3 (test code = 704-7) <0.03 0.01-0.07 Lab Interpretation (test code = 16768-6) Abnormal [facility] CenterPOCT [id number] 20:00:00* Test Item Value Reference Range Interpretation Comme nts POCT PREG (test code = 1605) negative Lab Interpretation (test cod e = 05897-4) Normal [facility]ST 1 [id number] 15:23:07HISTORY: Preop. FINDINGS: PA view of the chest showed normal appearance of thecardiomediastinal silhouette. Comparison is made with 06/22/2019 study. Noacute pneumonia, pleural effusion, pulmonary congestion detected. Minimalmid thoracic dextroscoliosis is noted. CONCLUSIONS: No signs of acute cardiopulmonary disease. [facility], Radiant Results Inft User - 02/07/2020 10:24 AM CDTHISTORY: Preop.FINDINGS:PA view of the chest showed normal appearance of thecardiomediastinal silhouette. Comparison is made with 06/22/2019 study. Noacute pneumonia, pleural effusion, pulmonary congestion detected. Minimalmid thoracic dextroscoliosis is noted.CONCLUSIONS: No signs of acute cardiopulmonary disease. [facility] CenterEXTERNAL [id number] 00:00:00Please see results in Care Everywhere. FINDINGS: A mildly dense, symmetric breast parenchymal pattern is present. No dominant mass or suspicious microcalcification clusters. No significant or suspicious changes from prior imaging.IMPRESSION: 1. No mammographic evidence for malignancy.2. Annual mammo graphy is the recommendation for the patient.BI-RAD: 1 Negative.[facility] CenterEXTERNAL [id number] 00:00:00Please see results in Care Everywhere. FINDINGS: A mildly dense, symmetric breast parenchymal pattern is present. No dominant mass or suspicious microcalcification clusters. No significant or suspicious changes from prior imaging.IMPRESSION: 1. No mammographic evidence for malignancy.2. Annual mammography is the recommendation for the patient.BI-RAD: 1 Negative.[facility] CHEST 2 [id number] 20:24:29HISTORY: Preop. TECHNIQUE: PA and lateral views [...] bodies or any aggressive bone lesionsvisualized. Clips areseen in the right upper abdomen, likely utilized forcholecystectomy.CONCLUSIONS: No signs of acute cardiopulmonary disease.[facility]"
[2024-08-20] MEDS ORDERED: METHOCARBAMOL 1,000 MG/10 ML VIAL ONE (00:35)
[2024-08-20] MEDS ORDERED: KETOROLAC 30 MG/ML INJ ONE (00:36)
[2024-08-20] MEDS ORDERED: NA CHLORIDE 0.9% 100 ML ONE (00:36)
[2024-08-20 01:15] LABS: Absolute Basophils 0.1 K/uL (0-0.5); Absolute Eosinophils 0.3 K/uL (0-0.5); Absolute Lymphocytes (CBC) 4.2 K/uL (0.7-4.9); Absolute Monocytes 0.9 K/uL (0.1-1.3); Absolute Neutrophil 3.8 K/uL (1.8-8.0); Basophils % 0.6 % (0-1.3); Eosinophils % 3.2 % (0-4.4); Hematocrit 31.6 % (36.0-45.0); Hemoglobin 11.3 g/dL (12.0-15.0); Lymphocytes % 45.8 % (15.3-44.8); MCH 29.9 pg (27.0-35.0); MCHC 35.8 g/dL (32.0-36.0); MCV 83.6 fL (80-100); MPV 8.9 fL (7.6-11.3); Monocytes % 9.4 % (3.3-12.3); Nucleated Red Blood Cells % 0.1 % (0-0); Platelets 203 thou/uL (152-406); RBC Red Blood Cell Count 3.79 M/uL (3.86-4.86); Red Cell Distribution Width 13.6 % (12.1-15.2)
[2024-08-20 01:43] LABS: ALT/SGPT 26 U/L (13-56); AST/SGOT 18 U/L (15-37); Albumin 3.4 g/dL (3.4-5.0); Albumin/Globulin Ratio 0.9 (1.1-1.8); Alkaline Phosphatase 152 U/L (45-117); Anion Gap 9.6 mEq/L (5.0-15.0); BUN Blood Urea Nitrogen 22 mg/dL (7-18); Bicarbonate 30 mEq/L (21-32); Bilirubin Total 0.4 mg/dL (0.2-1.0); Creatine Phosphokinase 174 U/L (26-192); Globulin 3.9 g/dL (2.3-3.5); Glomerular Filtration Rate 66 ml/min (=/>90); Glucose Level 132 mg/dL (74-106); Magnesium 1.5 mg/dL (1.6-2.4); Potassium 3.6 mEq/L (3.5-5.1); Protein, Total 7.3 g/dL (6.4-8.2); Sodium Level 137 mEq/L (136-145)
[2024-08-20 01:44] LABS: Bilirubin Direct < 0.2 mg/dL (0-0.2); Bilirubin Indirect, Calculated 0.2 mg/dL (0.2-0.8)
--- NOTE | 2024-08-20 02:14 | RAD REPORT ---
EXAM: XR Chest, 1 View CLINICAL HISTORY: leg pain TECHNIQUE: Frontal view of the chest. COMPARISON: XR Chest dated 11/03/2016 FINDINGS: Lungs: Unremarkable. No consolidation. Pleural space: Unremarkable. No pneumothorax. Heart: Unremarkable. No cardiomegaly. Mediastinum: Unremarkable. Normal mediastinal contour. Bones/joints: Unremarkable. No acute fracture. IMPRESSION: No acute disease. Electronically signed by: Roberto Tang MD 08/20/2024 01:51 AM CDT RP Due to temporary technical issues with the PACS/[employer] reporting system, reports are being justina d by the in-house radiologist without review as a courtesy to ensure prompt reporting the interpreting radiologist is fully responsible for the content of the report. Transcribed Date/Time: 08/20/2024 2:14 AM
[2024-08-20] MEDS ORDERED: MAGNESIUM SULFATE 1 gm IVPB 1 GM/100 ML BAG IV ONE (02:54)
--- NOTE | 2024-08-20 02:55 | RAD REPORT ---
EXAM: US Duplex Bilateral Lower Extremities Veins CLINICAL HISTORY: PAIN TECHNIQUE: Real-time duplex ultrasound scan of the bilateral lower extremity veins integrating B-mode two-dimens ional vascular structure, Doppler spectral analysis, color flow Doppler imaging and compression. COMPARISON: No relevant prior studies available. FINDINGS: Right deep veins: Unremarkable. No DVT in the right common femoral, femoral, proximal deep femora l, popliteal or visualized calf veins. The veins demonstrate normal color flow, are normally compressible, with normal phasic flow and/or augmentation response. Right superficial veins: Unremarkable. No thrombus in the visualized right great saphenous vein. Left deep veins: Unremarkable. No DVT in the left common femoral, femoral, proximal deep femoral, popliteal or visualized calf veins. The veins demonstrate normal color flow, are normally compressible, with normal phasic flow and/or augmentation response. Left superficial veins: Unremarkable. No thrombus in the visualized left great saphenous vein. Soft tissues: No acute findings. No popliteal cyst. IMPRESSION: No evidence for deep venous thrombosis within the bilateral lower extremity. Electronically signed by: Roberto Tang MD 08/20/2024 02:32 AM CDT Due to temporary technical issues with the PACS/[employer] reporting system, reports are being sign ed by the in-house radiologist without review as a courtesy to ensure prompt reporting the interpreting rad iologist is fully responsible for the content of the report. Transcribed Date/Time: 08/20/2024 2:55 AM
[2024-08-20] MEDS ORDERED: GABAPENTIN 300 MG CAP ONE (03:00)
--- NOTE | 2024-08-20 03:54 | EDPHYS ---
Physician Documentation [facility] Name: Cesia Farris Age: 54 yrs Sex: Female : 1970 Arrival Date: 08/20/2024 Time: 00:23 Bed 5 Private MD: ED Physician Dylan Yu HPI: 08/20 00:35 This 54 yrs old Female presents to ER via EMS with complaints of Muscle Spasms.cp 00:35 The patient presents with pain, that is acute, spasm, tightness, tenderness, cramping. cp 00:35 The complaints affect the right lower leg and left lower leg. Onset: The cp symptoms/episode began/occurred yesterday. Associated signs and symptoms: Pertinent positives: calf tenderness, Pertinent negatives fever, swelling. Treatment prior to arrival includes: no previous treatment. Patient reports she was working in [employer] Wednesday. Historical: - Allergies: 00:57 No Known Allergies; br2 - PMHx: 00:57 Diabetes - IDDM; Hypercholesterolemia; Hypertension; NEUROPATHY; Anxiety; br2 - Immunization history:: Adult Immunizations up to date. - Infectious Disease History:: Denies. - Social history:: Smoking status: Patient denies any tobacco usage or history of. Patient/guardian denies using alcohol, street drugs. ROS: 00:40 Constitutional: Negative for chills, fever, poor PO intake, cp 00:40 Eyes: Negative for injury, pain, redness, and discharge, cp 00:40 ENT: Negative for drainage from ear(s), ear pain, sore throat, difficulty swallowing, difficulty handling secretions, 00:40 Cardiovascular: Negative for chest pain, edema, palpitations, 00:40 Respiratory: Negative for cough, shortness of breath, wheezing, 00:40 Abdomen/GI: Negative for abdominal pain, 00:40 MS/extremity: Positive for pain, tenderness, of the right leg and left leg, cramping and spasms, Negative for injury or acute deformity, 00:40 Neuro: Negative for altered mental status, dizziness, headache, syncope, weakness, 00:40 All other systems are negative, Exam: 00:45 Constitutional: The patient appears in no acute distress, alert, awake, cp non-diaphoretic, non-toxic, well developed, well nourished, uncomfortable, 00:45 Head/Face: Normocephalic, atraumatic. cp 00:45 Eyes: Periorbital structures: appear normal, Conjunctiva: normal, no exudate, no injection, Sclera: no appreciated abnormality, Lids and lashes: appear normal, bilaterally, 00:45 ENT: External ear(s): are unremarkable, Nose: is normal, Mouth: Lips: moist, Oral mucosa: moist, Posterior pharynx: Airway: no evidence of obstruction, patent, 00:45 Chest/axilla: Inspection: normal, 00:45 Cardiovascular: Rate: normal, Rhythm: regular, Edema: is not appreciated, JVD: is not appreciated, 00:45 Respiratory: the patient does not display signs of respiratory distress, Respirations: normal, no use of accessory muscles, no retractions, labored breathing, is not present, Breath sounds: are clear throughout, no decreased breath sounds, no stridor, no wheezing, 00:45 Abdomen/GI: Inspection: abdomen appears normal, Palpation: abdomen is soft and non-tender, in all quadrants, 00:45 Back: pain, is absent, ROM is normal, 00:45 Musculoskeletal/extremity: Extremities: noted in the right leg and left leg: pain, tenderness, Pulses: noted to be 2+ in the right dorsalis pedis artery and left dorsalis pedis artery, the right leg and left leg Sensation intact. 00:45 Neuro: Orientation: to person, place \T\ time. Mentation: is normal, 01:01 ECG was reviewed by the Attending Physician. cp Vital Signs: 00:30 BP 185 / 91; Pulse 95; Resp 18; Pulse Ox 100% ; al5 00:55 BP 135 / 88; Pulse 96; Resp 18; Temp 97.2(TE); Pulse Ox 100% on R/A; Weight 64.41 kg; br2 Height 5 ft. 1 in. ; Pain 6/10; 01:19 BP 145 / 78; Pulse 92; Resp 20; Pulse Ox 99% ; jj7 01:30 BP 142 / 66; Pulse 89; Resp 15; Pulse Ox 98% ; al5 02:00 BP 137 / 71; Pulse 88; Resp 19; Pulse Ox 99% ; al5 02:30 BP 128 / 81; Pulse 87; Resp 18; Pulse Ox 98% ; al5 03:00 BP 145 / 74; Pulse 87; Resp 18; Pulse Ox 98% ; al5 04:05 BP 134 / 73; Pulse 88; Resp 20; Temp 97.6; Pulse Ox 99% ; jj7 00:55 Body Mass Index 26.83 (64.41 kg, 154.94 cm) br2 00:55 Pain Scale: Adult br2 MDM: 00:25 Medical Screening Exam initiated cp 01:00 Differential diagnosis: dvt, electrolyte abnormality, muscle spasms, cardiac arrythmia. 03:53 Data reviewed: vital signs, nurses notes, lab test result(s), EKG, radiologic studies, cp ultrasound, and as a result, I will discharge patient. 03:53 I considered the following discharge prescriptions or medication management in the emergency department Medications were administered in the Emergency Department. See MAR. Counseling: I had a detailed discussion with the patient and/or guardian regarding the historical points, exam findings, and any diagnostic results supporting the discharge/admit diagnosis, lab results, radiology results, to return to the emergency department if symptoms worsen or persist or if there are any questions or concerns that arise at home. Response to treatment: the patient's symptoms have markedly improved after treatment, and as a result, I will discharge patient. 08/20 00:35 Order name: Basic Metabolic Panel; Complete Time: 03:52 cp 08/20 02:42 Interpretation: Normal except: GLUC 132; BUN 22; GFR 66. cp 08/20 00:35 Order name: CBC with Diff; Complete Time: 02:41 cp 08/20 02:42 Interpretation: Normal except: RBC 3.79; HGB 11.3; HCT 31.6; VIJAY% 41.0; LYM% 45.8. cp 08/20 00:35 Order name: LFT's; Complete Time: 03:52 cp 08/20 02:42 Interpretation: Normal except: ALK 152; GLOB 3.9; A/G 0.9. cp 08/20 00:35 Order name: Magnesium; Complete Time: 03:52 cp 08/20 02:42 Interpretation: Abnormal: MG 1.5. cp 08/20 00:35 Order name: Troponin HS; Complete Time: 03:52 cp 08/20 01:32 Order name: Creatine Phosphokinase; Complete Time: 03:52 EDMS 08/20 00:35 Order name: XRAY Chest (1 view); Complete Time: 02:42 cp 08/20 00:35 Order name: US Extremity Venous W Compression Stu; Complete Time: 03:52 cp 08/20 00:35 Order name: Cardiac monitoring; Complete Time: 00:49 cp 08/20 00:35 Order name: EKG - Nurse/Tech; Complete Time: 00:49 cp 08/20 00:35 Order name: IV Saline Lock; Complete Time: 00:36 cp 08/20 00:35 Order name: Labs collected and sent; Complete Time: 00:37 cp 08/20 00:35 Order name: O2 Per Protocol; Complete Time: 00:37 cp 08/20 00:35 Order name: O2 Sat Monitoring; Complete Time: 00:37 cp EC:01 Rate is 93 beats/min. Rhythm is regular. TN interval is normal. QRS interval is normal. cp QT interval is normal. T waves are Inverted in lead aVR. Interpreted by me. Reviewed by me. Administered Medications: 00:54 Drug: Ketorolac IVP 15 mg IVP once Route: IVP; Site: right antecubital; br2 03:01 Follow up: Response: No adverse reaction; Pain is unchanged, physician notified al5 00:54 Drug: Methocarbamol IVPB 1 grams IVPB once over 1 hrs; (mix in NS 100 mL) Route: IVPB; br2 Infused Over: 1 hrs; Site: right antecubital; 03:01 Follow up: Response: No adverse reaction; IV Status: Completed infusion; IV Intake: al5 100ml 00:54 Not Given (PT HAS LR RUNNING PER EMS....VERBAL ORDER TO CONTINUE LRr): ns 0.9% 1000 ml br2 IV at 1 bolus Per protocol; to be given as a bolus over 60 minutes 03:01 Drug: Magnesium Sulfate IVPB 1 grams IVPB once over 1 hrs Route: IVPB; Infused Over: 1 al5 hrs; Site: right antecubital; 04:07 Follow up: IV Status: Completed infusion jj7 03:01 Drug: Gabapentin PO 300 mg PO once Route: PO; al5 04:07 Follow up: Response: Marked relief of symptoms jj7 Disposition: 08/21 02:07 Co-signature as Attending Physician, Dylan Yu MD I agree with the assessment and robson plan of care. Disposition Summary: 08/20/24 03:53 Discharge Ordered Notes: Location: Home cp Problem: new cp Symptoms: have improved cp Condition: Stable cp Diagnosis - Muscle spasm of calf cp Followup: cp - With: Private Physician - When: 2 - 3 days - Reason: Worsening of condition Discharge Instructions: - Discharge Summary Sheet cp - Leg Cramps cp - Muscle Cramps and Spasms cp - Heat Therapy cp Forms: - Medication Reconciliation Form cp - Antibiotic Education cp - Prescription Opioid Use cp - Patient Portal Instructions cp - Leadership Thank You Letter cp Prescriptions: - Ibuprofen 800 mg Oral Tablet - take 1 tablet ORAL route every 8 hours As needed take with food; 30 tablet; cp Refills: 0, Product Selection Permitted - methocarbamol 750 mg Oral tablet - take 1 tablet ORAL route 3 times per day; 30 tablet; Refills: 0, Product cp Selection Permitted Signatures: Dispatcher [employer] EDMS Dylan Yu MD MD cha Page, Corey, PA PA cp Asha Gamboa, RN RN al5 Valentina Meng RN RN br2 Oz Gunn RN jj7 Corrections: (The following items were deleted from the chart) 08/20 00:36 00:36 BASIC METABOLIC PANEL+C.LAB.BRZ ordered. EDMS EDMS 00:36 00:36 CBC+H.LAB.BRZ ordered. EDMS EDMS 00:36 00:36 HEPATIC FUNCTION+C.LAB.BRZ ordered. EDMS EDMS 00:36 00:36 MAGNESIUM+C.LAB.BRZ ordered. EDMS EDMS 00:36 00:36 Troponin High Sensitivity+C.LAB.BRZ ordered. EDMS EDMS 00:36 00:36 Chest Single View+RAD.RAD.BRZ ordered. EDMS EDMS 00:36 00:36 Extrem Venous W Compression Stu+US.RAD.BRZ ordered. EDMS EDMS 01:32 01:02 CREATINE PHOSPHOKINASE+C.LAB.BRZ ordered. EDMS EDMS
--- NOTE | 2024-08-20 03:54 | ER ---
Nurse's Notes [facility] Name: Cesia Farris Age: 54 yrs Sex: Female : 1970 Arrival Date: 08/20/2024 Time: 00:23 Bed 5 Private MD: Diagnosis: Muscle spasm of calf Presentation: 08/20 00:55 Chief complaint: Patient states: C/O BILATERAL LEG CRAMPS. PT STATES SHE DID GARDENING br2 YESTERDAY AND MIGHT HAVE DONE TOO MUCH. Coronavirus screen: Client denies travel out of the [place] in the last 14 days. Ebola Screen: Patient denies exposure to infectious person. Initial Sepsis Screen: Does the patient meet any 2 criteria? No. Patient's initial sepsis screen is negative. Does the patient have a suspected source of infection? No. Patient's initial sepsis screen is negative. Risk Assessment: Do you want to hurt yourself or someone else? Patient reports no desire to harm self or others. Onset of symptoms was August 19, 2024. 00:55 Method Of Arrival: EMS: [facility] br2 00:55 Acuity: ROSSI 3 br2 Triage Assessment: 00:57 General: Appears uncomfortable, Behavior is calm, cooperative. Pain: Complains of pain br2 in back of left leg and back of right leg Pain currently is 6 out of 10 on a pain scale. Historical: - Allergies: 00:57 No Known Allergies; br2 - PMHx: 00:57 Diabetes - IDDM; Hypercholesterolemia; Hypertension; NEUROPATHY; Anxiety; br2 - Immunization history:: Adult Immunizations up to date. - Infectious Disease History:: Denies. - Social history:: Smoking status: Patient denies any tobacco usage or history of. Patient/guardian denies using alcohol, street drugs. Screenin:02 [facility] ED Fall Risk Assessment (Adult) History of falling in the last 3 months, al5 including since admission No falls in past 3 months (0 pts) Confusion or Disorientation No (0 pts) Intoxicated or Sedated No (0 pts) Impaired Gait No (0 pts) Mobility Assist Device Used No (0 pt) Altered Elimination No (0 pt) Score/Fall Risk Level 0 - 2 = Low Risk Oriented to surroundings, Maintained a safe environment, Hourly rounding (assess needs \T\ fall precautionary measures) done. Abuse screen: Denies threats or abuse. Denies injuries from another. Nutritional screening: No deficits noted. Tuberculosis screening: No symptoms or risk factors identified. Assessment: 01:03 General: Appears in no apparent distress. uncomfortable, Behavior is calm, cooperative. al5 Pain: Complains of pain in back of right leg and back of left leg. Neuro: Level of Consciousness is awake, alert, obeys commands, Oriented to person, place, time, situation. Cardiovascular: Capillary refill < 3 seconds Patient's skin is warm and dry. Respiratory: Airway is patent Respiratory effort is even, unlabored, Respiratory pattern is regular, symmetrical. GI: No signs and/or symptoms were reported involving the gastrointestinal system. : No signs and/or symptoms were reported regarding the genitourinary system. EENT: No signs and/or symptoms were reported regarding the EENT system. Derm: Skin is intact, is healthy with good turgor, Skin is pink, warm \T\ dry. normal. Musculoskeletal: Reports pain in back of right leg and back of left leg. 03:02 Reassessment: Patient appears in no apparent distress at this time. No changes from al5 previously documented assessment. Patient and/or family updated on plan of care and expected duration. Pain level reassessed. Patient is alert, oriented x 3, equal unlabored respirations, skin warm/dry/pink. Vital Signs: 00:30 BP 185 / 91; Pulse 95; Resp 18; Pulse Ox 100% ; al5 00:55 BP 135 / 88; Pulse 96; Resp 18; Temp 97.2(TE); Pulse Ox 100% on R/A; Weight 64.41 kg; br2 Height 5 ft. 1 in. ; Pain 6/10; 01:19 BP 145 / 78; Pulse 92; Resp 20; Pulse Ox 99% ; jj7 01:30 BP 142 / 66; Pulse 89; Resp 15; Pulse Ox 98% ; al5 02:00 BP 137 / 71; Pulse 88; Resp 19; Pulse Ox 99% ; al5 02:30 BP 128 / 81; Pulse 87; Resp 18; Pulse Ox 98% ; al5 03:00 BP 145 / 74; Pulse 87; Resp 18; Pulse Ox 98% ; al5 04:05 BP 134 / 73; Pulse 88; Resp 20; Temp 97.6; Pulse Ox 99% ; jj7 00:55 Body Mass Index 26.83 (64.41 kg, 154.94 cm) br2 00:55 Pain Scale: Adult br2 ED Course: 00:23 Patient arrived in ED. jj6 00:25 Dylan Burch PA is PHCP. cp 00:25 Dylan Yu MD is Attending Physician. cp 00:53 X-ray completed. Portable x-ray completed in exam room. Patient tolerated procedure mh1 well. 00:57 XRAY Chest (1 view) In Process Unspecified. EDMS 00:57 Triage completed. br2 00:57 Arm band placed on. br2 01:01 Asha Gamboa, JENNIFER is Primary Nurse. al5 01:03 Patient has correct armband on for positive identification. Bed in low position. Call al5 light in reach. Side rails up X2. Provided Education on: plan of care. 01:03 No provider procedures requiring assistance completed. Maintain EMS IV. Dressing al5 intact. Good blood return noted. Site clean \T\ dry. Gauge \T\ site: 20G RAC. Flushed with 10 mL NS. 01:29 US Extremity Venous W Compression Stu In Process Unspecified. EDMS 04:06 IV discontinued, intact, bleeding controlled, No redness/swelling at site. Pressure jj7 dressing applied. Administered Medications: 00:54 Drug: Ketorolac IVP 15 mg IVP once Route: IVP; Site: right antecubital; br2 03:01 Follow up: Response: No adverse reaction; Pain is unchanged, physician notified al5 00:54 Drug: Methocarbamol IVPB 1 grams IVPB once over 1 hrs; (mix in NS 100 mL) Route: IVPB; br2 Infused Over: 1 hrs; Site: right antecubital; 03:01 Follow up: Response: No adverse reaction; IV Status: Completed infusion; IV Intake: al5 100ml 00:54 Not Given (PT HAS LR RUNNING PER EMS....VERBAL ORDER TO CONTINUE LRr): ns 0.9% 1000 ml br2 IV at 1 bolus Per protocol; to be given as a bolus over 60 minutes 03:01 Drug: Magnesium Sulfate IVPB 1 grams IVPB once over 1 hrs Route: IVPB; Infused Over: 1 al5 hrs; Site: right antecubital; 04:07 Follow up: IV Status: Completed infusion jj7 03:01 Drug: Gabapentin PO 300 mg PO once Route: PO; al5 04:07 Follow up: Response: Marked relief of symptoms j7 Medication: 01:04 VIS not applicable for this client. al5 Intake: 03:01 IV: 100ml; Total: 100ml. al5 Outcome: 03:53 Discharge ordered by MD. green 04:06 Discharged to home ambulatory, with significant other, j7 04:06 Condition: improved 04:06 Discharge instructions given to patient, Instructed on discharge instructions, medication usage, Demonstrated understanding of instructions, medications, Prescriptions given X 2, 04:12 Patient left the ED. jj7 Signatures: Dispatcher [employer] EDMS Ijeoma Sigala 1 Dylan Burch PA PA Lisy Albrecht jj6 Oz Gunn RN RN jj7 Asha Gamboa RN RN al5 Valentina Meng RN RN br2 Corrections: (The following items were deleted from the chart) 01:32 01:24 CREATINE PHOSPHOKINASE+[id number].LAB.BRZ drawn and sent. jj7 EDNV
[2024-08-20 04:25] VITALS: BP 134/73; TEMP 97.6; O2SAT 99
--- NOTE | 2024-08-22 10:58 | EKG ---
Test Date: 2024-08-20 Test Time: 00:57:23 Clinical Rehab Specialist: JAMIL MEASUREMENT RESULTS: Intervals: Rate: 93 RI: 136 QRSD: 80 QT: 360 QTc: 447 Thomson: P: 41 RI: 136 QRS: 45 T: 38 INTERPRETIVE STATEMENTS: Normal sinus rhythm Normal ECG Compared to ECG 11/03/2016 23:50:51 T-wave abnormality no longer present Electronically Signed On 08-22-24 10:55:47 CDT by Alex Lamas
== END 2024-08-20 04:12 | disposition home or self-care (01) ==
LOC: ER 00:23
DX: M62.831 Muscle spasm of calf (principal)
CPT/HCPCS: 96365; 96367; 93005; 85025; 80048; 36415; 83735; 82550; 80076; 84484; 71045; 93970; 96375; 99284; 96366; J3475; J2800